=== PATIENT | female | born 1950 | race Caucasian/White ===

== ENCOUNTER 2024-05-27 12:48 | Emergency (ER) | payer MEDICARE, OTHER, SELFPAY ==
--- NOTE | ~2024-05-27 | XR_ITS ---
CHEST RADIOGRAPH, PA AND LATERAL CLINICAL HISTORY: cough/sob/copd/brown sputum . COMPARISON: None available TECHNIQUE: PA and lateral views of the chest. FINDINGS A large hiatal hernia is identified. The remainder of the cardiomediastinal silhouette is otherwise unremarkable. Increased interstitial markings are identified within the right mid to lower lung field, suggesting a n early infiltrate. The remainder of the lungs are clear. Visualized osseous structures and soft tissues are unremarkable. IMPRESSION: Early infiltrate within the right mid to lower lung field, as detailed above. Reviewed, dictated and finalized at location A. S AND BUSINESS DEVELOPMENT MANAGER
[2024-05-27 13:08] VITALS: BP 118/50; PULSE 84; RESP 28; TEMP 36.6; O2SAT 93
--- NOTE | 2024-05-27 13:09 | ED_ITS ---
HPI - SOB/Dyspnea General Chief Complaint: Upper Respiratory Infection Stated Complaint: congestion and sob Time Seen by Provider: 05/27/24 12:50 Source: patient and family Mode of arrival: ambulatory Limitations: no limitations History of Present Illness HPI Narrative: Merle is a 74-year-old female patient presenting to the clinic today with complaints of productive cough, chest congestion, and shortness of breath. Symptoms started sometime before Mane. History of COPD with asthma. She is a lifelong nonsmoker. Is coughing up brown/yellowish phlegm. States that the phlegm taste bad like infection. Oxygen saturations 93% on 2 L of O2. Patient wears home O2 as needed. States when she normally wears oxygen her oxygen saturation is around 93%. Is having increased difficulty breathing. Is having to speak in 2-3 word blocks and catch her breath. She denies any chest pain. States she is allergic to albuterol and steroids-states these medications make her symptoms worse but, is able to take air supra. Last breathing treatment was around 1000 this morning. Recently moved from [place] to [place], [place] and lost her Airsupra inhaler. Patient sees pulmonology- [facility] in [place], [place]. Related Data Allergies Allergy/AdvReac Type Severity Reaction Status Date / Time aspirin Allergy Severe Dyspnea / Verified 05/27/24 14:07 SOB codeine Allergy Severe Dyspnea / Verified 05/27/24 14:07 SOB diphenhydramine (From Allergy Severe Dyspnea / Verified 05/27/24 14:07 Benadryl) SOB minocycline (From Minocin) Allergy Severe Dyspnea / Verified 05/27/24 14:07 SOB Penicillins Allergy Severe Dyspnea / Verified 05/27/24 14:07 SOB Tetanus Vaccines and Toxoid Allergy Severe Dyspnea / Verified 05/27/24 14:07 SOB Review of Systems Review of Systems: Pertinent positives per HPI. Patient denies any fever, chills, rash, headache, visual changes, dizziness, chest pain, palpitations, nausea, vomiting, diarrhea, constipation, abdominal pain, or any urinary issues. PMFSH Comments At the time of my signature, I reviewed and agree with the nursing past medical, surgical, social, and family history. There is no relevant family history pertinent to the patient complaint. Exam Narrative: General: Well-developed, well nourished, in no apparent distress Head: Normocephalic, atraumatic Eyes: Pupils equally round and reactive to light bilaterally, EOM intact, sclera and conjunctive clear, no discharge, lids normal Ears: TMs intact and clear, ear canals clear, no drainage, grossly hearing normal. Nose: Nares patent, clear nasal discharge, no inflammation, no sinus tenderness. Mouth: Oral pharynx without lesions or masses, good dentition, MMM. Neck: Supple, trachea midline, no enlargement of anterior or posterior cervical nodes, no thyroid masses or goiter palpable. Cardio: Regular rate and rhythm, s1 and s2 normal, no murmur appreciated. Resp: Inspiratory wheezing on expiratory rhonchi, no rales or rubs Course Course Emergency Course: Portions of this record may have been created with voice recognition software. Level of Care: Express Care Visit Vital Signs Vital signs: Vital Signs Temperature 36.6 C 05/27/24 13:08 Pulse Rate 84 05/27/24 13:08 Respiratory Rate 28 H 05/27/24 13:08 Blood Pressure 118/50 L 05/27/24 13:08 Pulse Oximetry 93 05/27/24 13:08 Oxygen Delivery Nasal Cannula 05/27/24 13:08 Oxygen Flow Rate 2 05/27/24 13:08 Temperature 36.6 C 05/27/24 13:08 Pulse Rate 84 05/27/24 13:08 Respiratory Rate 28 H 05/27/24 13:08 Blood Pressure 118/50 L 05/27/24 13:08 Pulse Oximetry 93 05/27/24 13:08 Oxygen Delivery Nasal Cannula 05/27/24 13:08 Oxygen Flow Rate 2 05/27/24 13:08 Vital signs reviewed MDM - SOB/Dyspnea MDM Narrative Medical decision making narrative: At the time of visit patient is resting comfortably on the exam table. Patient appears to be nontoxic. Diagnostics: Chest x-ray shows early infiltrate in the right middle to lower lobe Plan: I suspect patient has COPD exacerbation with right mid to lower lobe pneumonia. Prescription for Levaquin and Airsupra inhaler was sent to the pharmacy. Recommend calling director cost's office either this afternoon or tomorrow morning to schedule appointment for recheck later this week -3-5 days. Strict precautions and red flag symptoms reviewed. Supportive measures were discussed with the patient and they voiced understanding discharge instructions and agrees to treatment plan. Differential Diagnosis Differential diagnosis: Likely acute exacerbation of chronic obstructive airways disease, congestive heart failure, community acquired pneumonia, asthma with exacerbation and pulmonary embolism Imaging Data Radiologist's impression: ITS Impressions Chest X-Ray 05/27/24 13:38 IMPRESSION: Early infiltrate within the right mid to lower lung field, as detailed above. Discharge Plan Discharge Clinical Impression: Acute exacerbation of chronic obstructive pulmonary disease Pneumonia Qualifiers: Pneumonia type: due to unspecified organism Laterality: right Lung location: lower lobe of lung Qualified Code(s): J18.9 - Pneumonia, unspecified organism Patient Disposition: Home, Self-Care Condition: Stable Instructions: Antibiotic Form, COPD (Chronic Obstructive Pulmonary Disease) (ED), Pneumonia (ED), Chronic Lung Disease and Infection Prevention (ED) Additional Instructions: Chest x-ray shows early right middle and lower lobe infiltrate Take prescription medications only as prescribed-Airsupra and levofloxacin DuoNeb treatment given in the clinic Increase fluids and stay well hydrated Tylenol/motrin for pain/fever Go to the ED if you develop a worsening in your condition- high fever not controlled by Tylenol or Motrin, dehydration, weakness, lethargy, increase shortness of breath, or chest pain. Follow up with your PCP in 3-5 days if symptoms persist. Patient Language: Polish Prescriptions: New Airsupra 90-80 mcg/actuation HFA aerosol inhaler 2 inh inhalation ONCE PRN (Reason: shortness of breath) 30 Days Qty: 10.7 0RF Rx Instructions: as a single dose; may repeat up to 6 doses per day (12 inhalations) levofloxacin 500 mg tablet 500 mg PO DAILY 7 Days Qty: 7 0RF Follow-up/Referrals: CLEVELAND,MD LAN [Primary Care Provider] - Time of Disposition: 13:53 Quality NIHSS Nursing Documentation ED NIHSS nursing documentation: reviewed/agree
[2024-05-27 13:33] VITALS: PULSE 84; RESP 28; O2SAT 93
[2024-05-27] MEDS: IPRATROPIUM 0.5 MG/ALBUTEROL SULFATE 2.5 MG AMPUL.NEB 3 ML INHALATION (13:33)
[2024-05-27 13:45] VITALS: PULSE 78; RESP 28; O2SAT 95
== END 2024-05-27 14:10 | disposition home or self-care (01) ==
PROVIDERS: Emergency Provider Nurse Practitioner Family; PCP Family Medicine
DX: J44.1 Chronic obstructive pulmonary disease with (acute) exacerbation (principal); J18.1 Lobar pneumonia, unspecified organism; G47.30 Sleep apnea, unspecified
CPT/HCPCS: 71046; 99203; G0463

== ENCOUNTER 2024-12-01 16:35 | Emergency (ER) | payer MEDICARE, OTHER, SELFPAY ==
--- NOTE | 2024-12-01 16:38 | ED_ITS ---
HPI - SOB/Dyspnea General Chief Complaint: Shortness of Breath/Dyspnea Stated Complaint: sob Time Seen by Provider: 12/01/24 16:38 Source: patient Mode of arrival: ambulatory Limitations: no limitations History of Present Illness HPI Narrative: Merle is a 74-year-old female patient presenting to the clinic today with complaints of shortness of breath, low O2 sats, and cough. She states that her oxygen saturation has been as low as 71%. She is currently taking prednisone, DuoNeb treatments every 6 hours, and Levaquin 750 mg daily. Patient is currently on 3 L of oxygen. Oxygen saturation is 93%. Has been having increased shortness of breath for the past 3 weeks per granddaughter. Last hand-held neb treatment was at 1:00 a.m. this afternoon. Has completed 3 breathing treatments today. 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 Related Data Allergies Allergy/AdvReac Type Severity Reaction Status Date / Time aspirin Allergy Severe Dyspnea / Verified 05/27/24 14:07 SOB codeine Allergy Severe Dyspnea / Verified 05/27/24 14:07 SOB diphenhydramine (From Allergy Severe Dyspnea / Verified 05/27/24 14:07 Benadryl) SOB minocycline (From Minocin) Allergy Severe Dyspnea / Verified 05/27/24 14:07 SOB Penicillins Allergy Severe Dyspnea / Verified 05/27/24 14:07 SOB Tetanus Vaccines and Toxoid Allergy Severe Dyspnea / Verified 05/27/24 14:07 SOB Review of Systems Review of Systems: Pertinent positives per HPI. Patient denies any fever, chills, rash, headache, visual changes, dizziness, runny nose, sore throat,chest pain, palpitations, nausea, vomiting, diarrhea, constipation, abdominal pain, or any urinary issues. PMFSH Comments At the time of my signature, I reviewed and agree with the nursing past medical, surgical, social, and family history. There is no relevant family history pertinent to the patient complaint. Exam Narrative: General: Well-developed, thin, increased work to breathe Head: Normocephalic, atraumatic Eyes: Pupils equally round and reactive to light bilaterally, EOM intact, sclera and conjunctive clear, no discharge, lids normal Ears: TMs intact and clear, ear canals clear, no drainage, grossly hearing normal. Nose: Nares patent, no discharge, no inflammation, no sinus tenderness. Mouth: Oropharynx without lesions or masses, good dentition, MMM. Neck: Supple, trachea midline, no enlargement of anterior or posterior cervical nodes, no thyroid masses or goiter palpable. Cardio: Regular rate and rhythm, s1 and s2 normal, no murmur appreciated. Resp: Lung sounds tight with expiratory wheezing, no rales or rubs-intercostal retractions-respirations- 36, SpO2 93-95% on 3 L nasal cannula Course Course Emergency Course: Portions of this record may have been created with voice recognition software. Level of Care: Express Care Visit Vital Signs Vital signs: Vital signs reviewed MDM - SOB/Dyspnea MDM Narrative Medical decision making narrative: At the time of visit patient is resting comfortably on the exam table. Patient appears to be nontoxic. Plan: Patient is short of breath with extensive COPD. Is already taking Levaquin, prednisone, and doing DuoNeb treatments home. Granddaughter states she has had increased work to breathe over the last 3 weeks. Patient is respirations are 36 and she is retracting. LS tight with expiratory wheezing. Oxygen level lowest at 71% home. She wears home O2 at 3 L. O2 sat 93-95% in the clinic. Recommend transfer to hospital for further evaluation. Patient would like to go to [facility]. Offered EMS transfer but patient and granddaughter declined. Report called to Ying CRUZ at [facility] for continuity of care. Differential Diagnosis Differential diagnosis: Likely acute exacerbation of chronic obstructive airways disease, congestive heart failure, community acquired pneumonia, asthma with exacerbation and pulmonary embolism Discharge Plan Discharge Clinical Impression: Shortness of breath, COPD exacerbation, Respiratory retractions Patient Disposition: Acute Care Hospital Condition: Guarded Prognosis Patient Language: Micronesian Prescriptions: No Action Airsupra 90-80 mcg/actuation HFA aerosol inhaler 2 inh inhalation ONCE PRN (Reason: shortness of breath) 30 Days Qty: 10.7 0RF Rx Instructions: as a single dose; may repeat up to 6 doses per day (12 inhalations) levofloxacin 500 mg tablet 500 mg PO DAILY 7 Days Qty: 7 0RF Follow-up/Referrals: [place],MD LAN [Primary Care Provider] - Time of Disposition: 17:10 Quality NIHSS Nursing Documentation ED NIHSS nursing documentation: reviewed/agree
--- OUTSIDE RECORDS SUMMARY | 2024-12-01 16:38 | XMS_ITS | Continuity of Care Document ---
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 4 Active No Information MINOCYCLINE HCL Active No Informati on Horse/Equine Containing Products Active No Information codeine Active No Information Penicillins Active No Information DIPHENHYDRAMINE HCL Active No Infor mation Medications Medication Instructions Dosage Effective Dates (start - stop) Status Comments Lumify 0.025 % eye drops - Active Celexa 20 mg tablet take 1 tablet by ora l route every day 20 MG - Active Zyrtec 10 mg tablet take 1 tablet by ora l route every day 10 MG - Active naproxen sodium 220 mg tablet take 1 tablet by oral route every 24 hours as needed 220 MG - Active Prolia 60 mg/mL subcutaneous syringe inject 1 milliliter by subcutaneous route every 6 months in the upper arm, upper thigh or abdomen 60 MG - Active Huber-24 400 mg capsule,extended release take 1 capsule by oral route every day 400 MG - Active albuterol sulfate 4 mg tablet take 1 tablet by oral route 3 times every day 4 MG - Active Procedures Procedure Date No Charge Refraction Office/outpatient Visit, New Gris Eye Mask Remove Cataract, Insert Lens IOLMaster-Professional Complex Extracapsular Cat Rem 4 [facility]Professional Eye Exam, New Patient No Charge Refraction IOLMaster-Technical Advance Directives Directive Yes / No Effective Date File Name No Information Encounters Encounter Description Practice Location Reason(s) For Visit Diagnoses Date Provider Providers Copied on Encounter Office/outpa tient Visit, New [facility], [id number] [place] [address] [address], [place], [place], [id number], [place] tel:[phone] SEC Clyde VAHID Professional YAG evaluation (chief complaint) Presence of intraocular lensOther secondary cataract, right eyeNevus of irises of both eyesPunctate keratitis, bilateralEnd othelial corneal dystrophyMei bomian gland dysfunction (MGD) of both eyes 9 Yo Aguayo. [address] [facility], [facility], [place], [place], [id number], [place]. tel:[phone] Referring Provider: Roya Meehan, [facility] [address], [facility]. tel:[phone] [facility], [address] [place] [address] [address], [place], [place], [id number], [place] [phone] SEC Clyde REDDING Professional No Information 9 Yo Aguayo. [address] [facility], [address], [place], [place], [id number], [place]. tel:[phone] [facility], [address] [place] [address] [address], [place], [place], [id number], [place] [phone] [facility] No Information 4 Katina Ramirez. [address], [address], [place], [address], [place]. tel:[phone] [facility], [address] [place] [address] [address], [place], [place], [id number], [place] [phone] SEC Reagan Long No Information 4 Katina Ramirez. [address], [address], [place], [address], [place]. tel:[phone] [facility], [address], [place], [place], [id number], [phone] [facility] [place] No Information 0 7 4 Katina Ramirez. [address] [facility], [address], [place], [place], [facility], . tel:[phone] [facility], [address], [place], [place], [id number], [phone] SEC Reagan Longyumiko No Information 201 4 Katina Ramirez. [address], [place], [place], [facility], . tel:[phone] [facility], [address], [place], [place], [id number], [phone] SEC [place] Professional Psychophysic al visual disturbances SENILE NUCLEAR CATARACTPSEU DOEXFOL LENS CAPSULE Mar-2 4 Katina Ramirez. [address], [place], [place], [facility], . tel:[phone] Referring Provider: Nima Lisa OD F, [address] [facility] [address], [place], [address]. tel:[phone] Family History Family Member Type Diagnosis Age At Onset No Information Payers Payer name Insurance type Covered democrat ID Authoriza tion(s) [place] [id number] Employers And Operating Loc [address] [place] [id number] Social History Type Description Quantity Date Captured Comments Alcohol Use Details No Caffeine Use Details 1 cup per day Tobacco Use Status Ex-cigarette smoker 019 Smoking Status Former smoker Smoking Tobacco Use Details Cigarette: Age Started: 27, Age Stopped: 34, Years Used 7 Cigarette: No Details Available Sex Female Chief Complaint And Reason For Visit From encounter dated '2019 09:30'. YAG evaluation (chief complaint). Description: The 69 year old female presents for evaluation of YAG evaluation in the right eye and left eye. Hx of PCIOL OU. Patient states she has difficulty seeingin bright light and glare at night and trouble seeing print on the television. Reason For Referral Reason For Referral No Information Plan Of Treatment Date Type Action Status Patient Education Learning About YAG Lase r Capsulotomy completed History Of Present Illness Encounter Date Complaint History Of Prese nt Illness YAG evaluation The 69 year old female presents for evaluation of YAG evaluation in the right eye and left eye. Hx of PCIOL OU. Patient states she has difficulty seeing in bright light and glare at night and trouble seeing print on the television. 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 Pt understands pseudo-exfoliation causes lens to be fragile. Discussed all risks, benefits, procedures and recovery. Patient understands changing glasses will not improve vision. Patient desires to have surgery, recommend phacoemulsification with intraocular lens. Discussed lifestyle lens options. Pt understands that she will need reading glasses with standard lens. Schedule CE OS first - standard lens. RTC as scheduled. Educational materials provided:Cataract. 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
--- OUTSIDE RECORDS SUMMARY | 2024-12-01 16:38 | XMS_ITS | Clinical Summary ---
Author Organization [facility] Address [address] [place] [address] Care Team Providers Care Social Media Analyst Name Role Phone Marie Drake MD Primary Care Provider + Source Comments [facility],non-owned Affiliates and Associated Physician Practices is amultiple site organization consisting of ambulatory clinics and hospital sitesin [place], [place], [place] and [place]. This disclosure is being madepursuant to the Care Everywhere program and may not contain all information available regarding this patient. Last updated 18.[facility] Allergies Active Allergy Reactions Criticality Noted Date Comments Aspirin Anaphylaxis High 02/12/2024 Diphenhydramine Anaphylaxis High 02/12/2024 Clarithromycin Diarrhea 02/12/2024 Clindamycin Diarrhea 02/12/2024 Codeine Anaphylaxis High 02/12/2024 Propranolol Anaphylaxis High 02/12/2024 Minocycline Anaphylaxis High 02/12/2024 Penicillins Diarrhea 02/12/2024 Tetanus Toxoids Anaphylaxis High 02/12/2024 Medications * Be aware that medications may not be up to date on this document. Alwaysverify current medications with the patient. digoxin (Lanoxin) 0.125 MG tablet Take 1 (one) tablet by mouth once daily 4 Active isosorbide mononitrate CR 24hr (Imdur) 30 MG tablet 4 Active fluticasone-umec lidin-vilant (Trelegy Ellipta) 200-62.5-25 MCG/ACT inhaler Inhale 1 (one) puff by mouth once daily Active clopidogrel (plaVIX) 75 MG tablet 4 Active omeprazole (PriLOSEC) 40 MG capsule Take 1 (one) capsule by mouth once daily Active montelukast (Singulair) 10 MG tablet Take 1 (one) tablet by mouth every evening Active hydroCHLOROthiaz cynthia (Hydrodiuril) 25 MG tablet Take 1 (one) tablet by mouth once daily Active levalbuterol (Xopenex) 1.25 MG/3ML nebulizer solution USE 1 VIAL VIA NEBULIZER EVERY 6 HOURS NEEDED Active hydrALAZINE (Apresoline) 50 MG tablet Take 1 (one) tablet by mouth 4 times daily Active furosemide (Lasix) 40 MG tablet Take 1 (one) tablet by mouth once daily as directed. 3 Active Dupixent 300 MG/2ML prefilled syringe INJECT 300 MG INTO THE SKIN EVERY 2 WEEKS Active albuterol (Proventil) 4 MG tablet Take 4 mg by mouth 3 times daily. Active Airsupra 90-80 MCG/ACT AERO INHALE 2 PUFFS BY MOUTH NEEDED WITH NO MORE THAN 12 PUFFS IN A 24 HOUR PERIOD Active Social History Tobacco Use Types Packs/Day Years Used Date Smoking Tobacco: Never Smokeless Tobacco: Never Tobacco Cessation:Counseling Given: Not Answered Comments Unknown Sex and Gender Information Value Date Recorded Sex Assigned at Female 01/05/2024 11:26 AM CDT Legal Sex Female 12:38 PM CDT Gender Identity Not on file Sexual Orientation Not on file Last Filed Vital Signs Vital Sign Reading Time Taken Comments Blood Pressure 118/74 02/12/2024 9:52 AM CDT Pulse 68 02/12/2024 9:52 AM CDT Temperature 36.4 C (97.5 F) 02/12/2024 9:52 AM CDT Respiratory Rate 18 02/12/2024 9:52 AM CDT Oxygen Saturation 94% 02/12/2024 9:52 AM CDT Inhaled Oxygen Concentration - - Weight 66.1 kg (145 lb 12.8 oz) 02/12/2024 9:52 AM CDT Height 157.5 cm (5' 2) 02/12/2024 9:52 AM CDT Body Mass Index 26.67 02/12/2024 9:52 AM CDT Plan of Treatment Health Maintenance Due Date Last Done Comments BONE DENSITY TESTING 1950 MEDICARE AWV 12 MONTHS 1950 HEPATITIS C SCREENING 01/20/1966 DTAP/TDAP/TD VACCINES (1 - Tdap) 01/24/1967 PNEUMOCOCCAL VACCINE 50+ (1 of 1 - PCV) 01/24/1998 ZOSTER VACCINE (1 of 2) 01/24/1998 Respiratory Syncytial Virus (RSV) Vaccine Pt: or over 60 yrs (1 - 1-dose 75+ series) 01/24/2023 COVID-19 VACCINE (1 - 2023-2 5 season) 2024 DEPRESSION SCREENING 05/29/2024 INFLUENZA VACCINE (#1) 2025 HEPATITIS B VACCINE Aged Out No longe r eligible based on patient's age to complete this topic HIB VACCINE Aged Out No longer eligi ble based on patient's age to complete this topic HPV VACCINE Aged Out No longer eligi ble based on patient's age to complete this topic MENINGOCOCCAL (Group B) VACC INE SHARED DECISION-MAKING Aged Out No longer eligibl e based on patient's age to complete this topic MENINGOCOCCAL GROUPS A/C/Y/W VACCINE Aged Out No longer eligible b ased on patient's age to complete this topic Insurance MEDICARE Care Teams Social Media Analyst Relationship Specialty Start Date End Date Marie Drake MD [address] [place] [id number] PCP - General Family Medicine 01/05/24
--- OUTSIDE RECORDS SUMMARY | 2024-12-01 16:38 | XMS_ITS | Clinical Summary ---
Author Organization [facility] Address [address], [address] [address] Phone Care Team Providers Care Rd Mechanical Engineer Name Role Phone Marie Lawrence MD Primary Care Provider [phone] Khloe Herman APRN, STROKE COORDINATOR Unavailable Allergies Active Allergy Reactions Criticality Noted Date Comments Amoxicillin Other (see Comments) 12/06/2023 Aspirin Unknown 09/25/2024 Diphenhydramine Anaphylaxis High 01/11/2023 Codeine Unknown 09/25/2024 Penicillins Unknown 09/25/2024 Medications montelukast (SINGULAIR) 10 MG Tablet Take 10 mg by mouth every evening. Active hydroCHLOROthia zide 25 MG Tablet Take 25 mg by mouth daily. Active ergocalciferol (VITAMIN D) 98829 UNIT Capsule Take 50,000 Units by mouth. Active omeprazole (PriLOSEC) 40 MG CAPSULE DELAYED RELEASE Take 40 mg by mouth daily. Active citalopram (CeleXA) 20 MG Tablet Take 20 mg by mouth daily. Active Cyanocobalamin (VITAMIN B-12) 1000 MCG Tablet Take 1,000 mcg by mouth daily. Active cetirizine (ZyrTEC) 10 MG Tablet Take 10 mg by mouth daily. Active OXYGEN CONCENTRATOR 2 L by Does not apply route. Use as directed Active OXYGEN TANK PORTABLE 2 L by Does not apply route. Use as directed Active fluconazole (DIFLUCAN) 200 MG TabletIndicatio ns:Oral thrush Take 1 Tablet by mouth daily. 1 Tablet 023 Active acetaminophen (TYLENOL) 325 MG Tablet Take 325 mg by mouth every 4 hours as needed. Active amiodarone (CORDARONE) 200 MG Tablet Take 200 mg by mouth daily. Active guaiFENesin (MUCINEX) 600 MG TABLET SR 12 HR Take 600 mg by mouth 2 times daily. Active hydrALAZINE 50 MG Tablet Take 50 mg by mouth 4 times daily. Active ipratropium-alb uterol (DUO-NEB) 0.5-2.5 (3) MG/3ML SolutionIndicat ions:Severe persistent asthma with acute exacerbation 3 mL by Nebulization route 4 times daily. 360 mL 3 023 Active Albuterol-Budes onide (Airsupra) 90-80 MCG/ACT Aerosol 2 puffs as needed, no more than 12 puffs in a 24 hour period. 3 g 3 024 Active Airsupra 90-80 MCG/ACT Aerosol INHALE 2 PUFFS NEEDED, NO MORE THAN 12 PUFFS IN A 24 HOUR PERIOD. 3 g 11 025 Active Dupilumab (DUPIXENT) 300 MG/2ML Solution Prefilled SyringeIndicati ons:Severe persistent asthma with acute exacerbation 300mg every 2 weeks 4 mL 5 025 Active methylPREDNISol one (MEDROL DOSPACK) 4 MG Tablet Therapy Pack Take 4 mg by mouth daily. Active levoFLOXacin (LEVAQUIN) 500 MG Tablet Take 500 mg by mouth 2 times daily. Active theophylline (LEE-24) 400 MG CAPSULE SR 24 HR Take 1 Capsule by mouth daily for 30 days. 30 Capsule 025 2024 Active azithromycin (ZITHROMAX) 500 MG TabletIndicatio ns:Bronchiectas is without acute exacerbation (HCC) TAKE 1 TABLET BY MOUTH THREE TIMES A WEEK FOR 28 DAYS. 12 Tablet 11 025 2024 Active budesonide (PULMICORT) 0.5 MG/2ML SuspensionIndic ations:Bronchie ctasis with acute exacerbation (HCC),Eosinophi lic asthma 2 mL by Nebulization route 2 times daily for 30 days. 120 mL 3 025 2024 Active Revefenacin (Yupelri) 175 MCG/3ML SolutionIndicat ions:Bronchiect asis with acute exacerbation (HCC),Eosinophi lic asthma take 3 mL by inhalation daily for 30 days. 90 mL 3 025 2024 Active Fluticasone-Ume clidin-Vilant (Trelegy Ellipta) 200-62.5-25 MCG/ACT AEROSOL POWDER, BREATH ACTIVATEDIndica tions:Eosinophi lic asthma take 1 Puff by inhalation daily. 1 Each 5 024 2024 Discontinued(A lternate therapy) azithromycin (ZITHROMAX) 500 MG TabletIndicatio ns:Bronchiectas is without acute exacerbation (HCC) Take 1 Tablet by mouth three times a week for 30 days. 12 Tablet 5 025 2024 Discontinued(R eorder) Revefenacin (Yupelri) 175 MCG/3ML SolutionIndicat ions:Bronchiect asis with acute exacerbation (HCC),Eosinophi lic asthma take 3 mL by inhalation daily for 30 days. 90 mL 3 025 2024 Discontinued budesonide (PULMICORT) 0.5 MG/2ML SuspensionIndic ations:Bronchie ctasis with acute exacerbation (HCC),Eosinophi lic asthma 2 mL by Nebulization route 2 times daily for 30 days. 120 mL 3 025 2024 Discontinued Formoterol Fumarate (Perforomist) 20 MCG/2ML Nebulizer SolnIndications :Bronchiectasis with acute exacerbation (HCC),Eosinophi lic asthma take 2 mL by inhalation 2 times daily for 30 days. 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 Chronic respiratory failure with hypoxia Bronchiectasis with acute exacerbation Oral thrush 02/08/2023 Wheezing 01/03/2023 SOB (shortness of breath) 01/03/2023 Heart palpitations 01/03/2023 Resolved Problems Problem Noted Date Diagnosed Date Resolved Date Moderate persistent asthma w ith acute exacerbation 01/03/2023 02/08/2023 Severe persistent asthma wit h acute exacerbation 01/03/2023 03/27/2024 Encounters Date Type Department Care Team Description 11/25/2024 Refill [facility]Y [facility] [address] [place] [address] Khloe Herman APRN, MIGUELITO Medication Refill 11/20/2024 Results [facility] [address] [place] [address] Khloe Herman APRN, STROKE COORDINATOR CMP (COMPREHENSIVE METABOLIC PANEL) 11/19/2024 Telephone [facility] [address] [place] [address] Khloe Herman APRN, STROKE COORDINATOR 11/18/2024 Telephone [facility] Medicine [facility] [address] [place] [address] Khloe Herman APRN, STROKE COORDINATOR 11/15/2024 2:00 PM CDT Office Visit [facility] PUL[facility] [address] [facility] [facility] [facility] [place] [address] Khloe Herman APRN, STROKE COORDINATOR Bronchiectasis with acute exacerbation (HCC) (Primary Dx); Chronic respiratory failure with hypoxia (HCC); Eosinophilic asthma Discharge Disposition: Discharged to home or Selfcare 11/15/2024 Travel 10/18/2024 [facility]ill [facility] [address] [place] [address] Khloe Herman APRN, MIGUELITO Medication Refill 10/07/2024 Telephone [facility] [address] [place] [address] Khloe Herman APRN, STROKE COORDINATOR 09/25/2024 1:00 PM CDT Office Visit [facility] [address] [place] [address] Khloe Herman APRN, CNP Eosinophilic asthma (Primary Dx); Bronchiectasis without acute exacerbation (HCC); Chronic respiratory failure with hypoxia (HCC) Discharge Disposition: Discharged to home or Selfcare 09/25/2024 Travel 09/23/2024 Refill [facility] [address] [facility] [address] [place] [address] Khloe Herman APRN, CNP Medication Refill from Last 3 Months Social History Tobacco Use Types Packs/Day Years Used Date Smoking Tobacco: Never Smokeless Tobacco: Never Tobacco Cessation:Counseling Given: Not Answered Alcohol Use Standard Drinks/Week Comments Never 0 (1 standard drink = 0.6 oz pur e alcohol) Sexually Active Control Partners Comments Never Comments Unknown Sex and Gender Information Value Date Recorded Sex Assigned at Not on file Legal Sex Female 7:13 PM 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 Gender Identity Not on file Sexual Orientation Not on file Last Filed Vital Signs Vital Sign Reading Time Taken Comments Blood Pressure 138/70 11/15/2024 1:56 PM CDT Pulse 62 11/15/2024 1:56 PM CDT Temperature 37.5 C (99.5 F) 11/15/2024 1:56 PM CDT Respiratory Rate 20 11/15/2024 1:56 PM CDT Oxygen Saturation 93% 11/15/2024 1:56 PM CDT Inhaled Oxygen Concentration - - Weight 63.5 kg (140 lb) 11/15/2024 1:56 PM CDT Height 157.5 cm (5' 2) 11/15/2024 1:56 PM CDT Body Mass Index 25.61 11/15/2024 1:56 PM CDT Plan of Treatment Upcoming Encounters Date Type Department Care Team (Late st Contact Info) Description 12/13/2024 1:00 PM CDT Office Visit [facility] [address] [place] [address] Khloe Herman APRN, MIGUELITO [address] [place] [address] Health Maintenance Due Date Last Done Comments DEXA Bone Density 1950 Hepatitis C Virus (HCV) Screening 1950 TdaP Immunization 1950 Zoster Immunization (1 of 2) 01/24/1998 Pneumococcal Immunization (50+ years) (2 of 2 - PCV) 03/08/2019 03/08/2018 SARS-COV-2 Immunization ( season) 2024 04/29/2021, 07/22/2020, 07/01/2020 Influenza Immunization (#1) 01/27/202501/28, 03/05/2020, 04/02/2019, Additional history exists Respiratory Syncytial Virus (RSV) Immunization (Adult) Completed 05/18/2023 Hepatitis B Immunization Aged Out No longer eligible based on patient's age to complete this topic Human Papillomavirus (HPV) Immunization Aged Out No longer eligible based on patient's age to complete this topic Meningococcal Immunization (ACWY) Aged Out No longer eligible based on patient's age to complete this topic Rotavirus Immunization Aged Out No lo nger eligible based on patient's age to complete this topic Procedures Procedure Name Priority Date/Time Associated Diagnosis Comments CMP (COMPREHENSIVE METABOLIC PANEL) Routine 11/15/2024 12:00 AM CDT Bronchiectasis with acute exacerbation (HCC) Chronic respiratory failure with hypoxia (HCC) CT HIGH RESOLUTION CHEST COMPLETE Routine 10/01/2024 12:00 AM CDT Bronchiectasis without acute exacerbation (HCC) Chronic respiratory failure with hypoxia (HCC) from Last 3 Months Results * CMP (COMPREHENSIVE METABOLIC PANEL) (11/15/2024 12:00 AM CDT) Blood us Khloe Herman APRN, CNP CHEMISTRY ORDERABLES Final Result SCAN * CT HIGH RESOLUTION CHEST COMPLETE (10/01/2024 12:00 AM CDT) Anatomical Region Laterality Modality Chest N/A Other 10/01/2024 Khloe Herman APRN, MIGUELITO IMG CT ORDERABLES Fin al Result from Last 3 Months Insurance MEDICARE Reppify Care Teams Rd Mechanical Engineer Relationship Specialty Start Date End Date Marie Lawrence MD [address] [place] [address] PCP - General 01/03/23 Khloe Herman APRN, MIGUELITO [address] [address] Nurse Practitioner Advanced Practice Nurse 01/03/23
--- OUTSIDE RECORDS SUMMARY | 2024-12-01 16:38 | XMS_ITS | Encounter Summary ---
Author Organization [facility] Address [address] [place] [address] Phone Care Team Providers Care Chief Airport Guide Name Role Phone Marie Lawrence MD Primary Care Provider [phone] Khloe Herman APRN, YOUTH MANAGER Unavailable Encounter Details Date Type Department Care Team (Late st Contact Info) Description 11/20/2024 Results Follow-Up [facility] - Pulmonology & Sleep Medicine [facility] [address] [place] [phone] Khloe Herman APRN, YOUTH MANAGER [address] [facility] [address] [place] [address] CMP (COMPREHENSIVE METABOLIC PANEL) Social History Tobacco Use Types Packs/Day Years Used Date Smoking Tobacco: Never Smokeless Tobacco: Never Alcohol Use Standard Drinks/Week Comments Never 0 (1 standard drink = 0.6 oz pur e alcohol) Sexually Active Control Partners Comments Never Comments Unknown Sex and Gender Information Value Date Recorded Sex Assigned at Not on file Legal Sex Female 7:13 PM 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 Gender Identity Not on file Sexual Orientation Not on file documented as of this encounter Plan of Treatment Upcoming Encounters Date Type Department Care Team (Late st Contact Info) Description 12/13/2024 1:00 PM CDT Office Visit [facility] [address] [facility] [address] [place] [address] Khloe Herman APRN, MIGUELITO [address] [address] documented as of this encounter Visit Diagnoses Not on filedocumented in this encounter Care Teams Chief Airport Guide Relationship Specialty Start Date End Date Marie Lawrence MD [address] [place] [address] PCP - General 01/03/23 Khloe Herman APRN, CNP #2 [facility] [address] [place] [address] Nurse Practitioner Advanced Practice Nurse 01/03/23 documented as of this encounter
--- OUTSIDE RECORDS SUMMARY | 2024-12-01 16:42 | XMS_ITS | Continuity of Care Document ---
Author Organization [employer] [facility] Address [address] [facility] [address] [place] [address] Phone Care Team Providers Care Tissue Packer Name Role Phone Olivier Ram MD Unavailable [...] Copied on Encounter Office/outpa tient Visit, [facility], [id number] [place] [address] [address], [place], [place], [address], [place] tel:[phone] SEC Clyde VAHID Professional YAG evaluation (chief complaint) Presence of intraocular lensOther secondary cataract, right eyeNevus of irises of both eyesPunctate keratitis, bilateralEnd othelial corneal dystrophyMei bomian gland dysfunction (MGD) of both eyes 9 Yo Aguayo. [address] [facility], [facility] [address], [place], [place], [id number], [place]. tel:[phone] Referring Provider: Roya Meehan, [facility] [address], [facility]. tel:[phone] [facility], [address] [place] [address] [address], [place], [place], [address], [place] [phone] SEC Clyde REDDING Professional No Information 9 Yo Aguayo. [address] [facility], [address], [place], [place], [address], [place]. tel:[phone] [facility], [address] [place] [address] [address], [place], [place], [address], [place] [phone] [facility] No Information 4 Katina Ramirez. [address], [address], [place], [address], [place]. tel:[phone] [facility], [address] [place] [address] [address], [place], [place], [address], [place] [phone] SEC Reagan Long No Information 4 Katina Ramirez. [address], [address], [place], [address], [place]. tel:[phone] [facility], [address], [place], [place], [address], [phone] [facility] [place] No Information 0 7 4 Katina Ramirez. [address] [facility], [address], [place], [place], [facility], . tel:[phone] [facility], [address], [place], [place], [address], [phone] SEC Reagan Longyumiko No Information 201 4 Katina Ramirez. [address] [facility], [place], [place], [facility], . tel:[phone] [facility], [address], [place], [place], [address], [phone] SEC [place] Professional Psychophysic al visual disturbances SENILE NUCLEAR CATARACTPSEU DOEXFOL LENS CAPSULE Mar-2 4 Katina Ramirez. [address] [facility], [place], [place], [facility], . tel:[phone] Referring Provider: Nima Lisa OD F, [address] [facility] [address], [address]. tel:[phone] Family History Family Member Type Diagnosis Age At Onset No Information Payers Payer name Insurance type Covered alliance party ID Authoriza tion(s) [place] [id number] Employers [employer] Operating Loc 520 [place] [id number] Social History Type Description Quantity Date Captured [...]
[2024-12-01 16:51] VITALS: BP 162/75; PULSE 82; RESP 36; TEMP 36.8; O2SAT 95
[2024-12-01 16:58] VITALS: O2SAT 95
== END 2024-12-01 16:58 | disposition short-term general hospital (02) ==
LOC: EXPTROY 16:40
PROVIDERS: Emergency Provider Nurse Practitioner Family; PCP Family Medicine
DX: R06.02 Shortness of breath (principal); J44.1 Chronic obstructive pulmonary disease with (acute) exacerbation; R09.89 Other specified symptoms and signs involving the circulatory and respiratory systems; Z99.81 Dependence on supplemental oxygen; I10 Essential (primary) hypertension; E78.00 Pure hypercholesterolemia, unspecified; J82.83 Eosinophilic asthma; G47.33 Obstructive sleep apnea (adult) (pediatric); K21.9 Gastro-esophageal reflux disease without esophagitis
CPT/HCPCS: 99212; G0463

== ENCOUNTER 2024-12-01 17:17 | Inpatient (IN) | payer MEDICARE, OTHER, SELFPAY ==
[2024-12-01] VITALS (13 sets, daily range): BP systolic 137–153; BP diastolic 68–90; PULSE 77–88; RESP 20–31; TEMP 36.7–36.8; O2SAT 95–99; BMI 24.5
--- NOTE | ~2024-12-01 | XR_ITS ---
Portable chest x-ray Comparison: 12/01/2024 Clinical History: Pneumonia Findings: There is probable COPD or other chronic interstitial change. Possible minimal haziness rig ht lung base. Cardiomediastinal silhouette is stable. Bones and soft tissues are unremarkable. Impression: COPD or other chronic interstitial change. Possible mild haziness right lung base. Correlate for pneumonia or minimal pulmonary edema. Stable cardiomegaly. Reviewed, dictated and finalized at location . Impression: COPD or other chronic interstitial change. Possible mild haziness right lung base. Correlate for pneumonia or minimal pulm onary edema. Stable cardiomegaly.
--- NOTE | ~2024-12-01 | CT_ITS ---
EXAMINATION: CT diagnostic chest wo con DATE: 12/01/2024 21:32 INDICATION: nodule vs infection TECHNIQUE: Computed tomography (CT) of the chest was performed with 100 mL Omnipaque-350 intravenous contrast. Automated exposure control and iterative reconstruction technique were employed. The dose-l ength product was 149.19 mGy-cm. COMPARISON: X-ray chest, same date. FINDINGS: CHEST: Thoracic aorta: Borderline ectasia of the ascending aorta measuring up to 3.9 cm. Moderate atheroscle rotic calcifications. Visualization of the aortic wall as can be seen with anemia. Lung parenchyma and airways: Significant biapical pleural scarring. Tree-in-bud opacities in all lung lobes. Widespread cystic and cylindrical bronchiectasis. Several areas of the cystic bronchiectasis contain fluid or aerated secretions. Thoracic inlet, axillae and chest wall: No thyroid or soft tissue mass. No axillary lymphadenopathy. Mediastinum: Dilated central pulmonary arteries as can be seen with pulmonary hypertension. Large hia stevenson hernia containing approximately one half of the stomach. Heart and pericardium: Mild cardiomegaly. Aortic valve and mitral calcifications Trace pericardial fl uid. Coronary artery calcifications: Mild. Pleura: Fat-containing right posterior diaphragmatic hernia. Upper abdomen: No significant finding. Thoracic bones: No acute osseous finding in the chest. IMPRESSION: Diffuse tree-in-bud opacities with severe bronchiectasis, concerning for atypical infection, includin g but not limited to: tuberculosis, MAC, fungal infection, and bacterial bronchopneumonia. Chronic as piration considered less likely given the distribution. Mild cardiomegaly. Trace pericardial effusion. Results reported telephonically to Debbie Mac RN by Dr. Willson at 10:29 PM on 12/01/2024. Reviewed, dictated and finalized at location K. IMPRESSION: Diffuse tree-in-bud opacities with severe bronchiectasis, concerning for atypic al infection, including but not limited to: tuberculosis, MAC, fungal infection , and bacterial bronchopneumonia. Chronic aspiration considered less likely giv en the distribution. Mild cardiomegaly. Trace pericardial effusion. Results reported telephonically to Debbie Mac RN by Dr. Willson at 10:29 PM on 12/01/2024.
--- NOTE | ~2024-12-01 | XR_ITS ---
EXAMINATION: XR chest 1V portable Exam Date/Time: 12/01/2024 17:25 CDT HISTORY: dyspnea Comparison: 05/27/2024. RESULT: Lines, tubes, and devices: None. Lungs and pleura: 1.3 cm right lower lobe nodular opacity. Moderate diffuse reticular opacities. Ret iculonodular opacities in the right lower lung. Left hemidiaphragm tenting. 2.1 cm right midlung air cyst Cardiomediastinal silhouette: Stable. Hiatal hernia. Other: No acute osseous or upper abdominal finding. IMPRESSION: Reticulonodular right lower lung opacities may represent infection, including atypical variants, over lying chronic emphysematous/interstitial changes. Possible 1.3 cm right lower lung pulmonary nodule, versus nodular appearing consolidation from infect ion. Recommend nonemergent but timely low-dose noncontrast CT of the chest for further evaluation. Reviewed, dictated and finalized at location K. IMPRESSION: Reticulonodular right lower lung opacities may represent infection, including a typical variants, overlying chronic emphysematous/interstitial changes. Possible 1.3 cm right lower lung pulmonary nodule, versus nodular appearing con solidation from infection. Recommend nonemergent but timely low-dose noncontras t CT of the chest for further evaluation.
--- NOTE | 2024-12-01 17:18 | ECG_ITS ---
Test Date: 2024-12-01 17:42:20 Measurements Intervals [place] Rate: 75 P: 17 [place]: 138 QRS: -37 QRSD: 100 T: 37 QT: 387 QTc: 432 Interpretive Statements SINUS RHYTHM LEFT AXIS DEVIATION [QRS AXIS < -30] No previous ECG available for comparison Electronically Signed On 12-02-2024 22:31:57 CDT by Jami Benitez M.D.
--- OUTSIDE RECORDS SUMMARY | 2024-12-01 17:19 | XMS_ITS | Continuity of Care Document ---
Author Organization [facility] [place] [address] [place] [phone] Phone Care Team Providers Care Tors[place] Coiling Machine Setter Name Role Phone Olivier Ram MD Unavailable [...] Copied on Encounter Office/outpa tient Visit, [facility], [id number] [place] [address] [address], [place], [place], [id number], [place] tel:[phone] SEC Clyde VAHID Professional YAG evaluation (chief complaint) Presence of intraocular lensOther secondary cataract, right eyeNevus of irises of both eyesPunctate keratitis, bilateralEnd othelial corneal dystrophyMei bomian gland dysfunction (MGD) of both eyes 9 Yo Aguayo. [address] [facility] [address], [place], [place], [address], [place]. tel:[phone] Referring Provider: Roya Meehan, [facility] [address], [facility]. tel:[phone] [facility], [address] [place] [address] [address], [place], [place], [address], [place] [phone] SEC Clyde REDDING Professional No Information 9 Yo Aguayo. [address] [facility], [address], [place], [place], [address], [place]. tel:[phone] [facility], [address] [place] [address] [address], [place], [place], [id number], [place] [phone] [facility] No Information 4 Katina Ramirez. [address], [address], [place], [address], [place]. tel:[phone] [facility], [address] [place] [address] [address], [place], [place], [address], [place] [phone] SEC Reagan Long No Information 4 Katina Ramirez. [address], [address], [place], [address], [place]. tel:[phone] [facility], [address], [place], [place], [address], [phone] [facility] [place] No Information 0 7 4 Katina Ramirez. [address] [facility], [address], [place], [place], [facility], . tel:[phone] [facility], [address], [place], [place], [address], [phone] SEC Reagan Longyumiko No Information 201 4 Katina Ramirez. [address] [facility], [place], [place], [facility], . tel:[phone] [facility], [address], [place], [place], [address], [phone] [place] Professional Psychophysic al visual disturbances SENILE NUCLEAR CATARACTPSEU DOEXFOL LENS CAPSULE Mar-2 4 Katina Ramirez. [address] [facility], [place], [place], [facility], . tel:[phone] Referring Provider: Nima Lisa OD F, [address] [facility] [address], [address]. tel:[phone] Family History Family Member Type Diagnosis Age At Onset No Information Payers Payer name Insurance type Covered constitution party ID Authoriza tion(s) [place] [id number] [employer] Loc 520 CI [id number] Social History Type Description Quantity Date Captured [...]
[2024-12-01 17:36] LABS: Hematocrit 38.0 % (37.0-47.0); Hemoglobin 11.8 g/dL (12.0-15.0); Immature Granulocyte Percent A 0.5 % (0-0.5); Lymphocytes Absolute Auto 1.31 K/mm3 (0.9-3.2); Mean Corpuscular HGB Conc 31.1 g/dl (32-36); Mean Corpuscular Hemoglobin 27.1 pg (26-34); Mean Corpuscular Volume 87.2 fl (80-100); Nucleated Red Blood Cells Absolute Auto 0.000 K/mm3 (0.0-0.012); Nucleated Red Blood Cells Perc 0.0 % (0.0-0.2); Platelet Count Result 386 k/mm3 (150-375); Red Blood Count 4.36 M/mm3 (4.2-5.4); White Blood Count 18.7 K/mm3 (4.5-10.0)
--- NOTE | 2024-12-01 17:40 | ED_ITS ---
HPI - SOB/Dyspnea General Chief Complaint: Shortness of Breath/Dyspnea <Cathy Correa PA-C - Last Filed: 12/01/24 19:52> Stated Complaint: shortness of breath <Cathy Correa PA-C - Last Filed: 12/01/24 19:52> Time Seen by Provider: 12/01/24 17:27 <Cathy Correa PA-C - Last Filed: 12/01/24 19:52> History of Present Illness HPI Narrative: 74-year-old female with history of asthma and COPD presents emergency department with daughter at bedside for shortness of breath and labored breathing for the past 3 weeks. Patient reports increasing shortness of breath and labored breathing despite being on steroids and Levaquin. She is currently in her 2nd round of Levaquin in the past couple of weeks and continues to worsen. Her regional sales consultant is Dr. Novak at [facility]. She states she used her nebulizer 3 times today without improvement. Her last use was at 1:00 p.m.. She reports a productive cough with pale yellow sputum. Denies any fevers or chest pain, lower extremity edema, hemoptysis, history of VTE, recent surgeries or hospitalizations. She denies history of smoking. She states she normally wears 2 L nasal cannula at all times but did increase her oxygen to 3 L today. < Cathy Correa PA-C - Last Filed: 12/01/24 19:52> Related Data Home Medications: Home Medications ?Medication ?Instructions ?Recorded ?Confirmed ?Last Taken ?Type azithromycin 500 mg tablet 500 mg PO WEEKLY 12/01/24 12/01/24 Unknown History citalopram 20 mg tablet mg 12/01/24 Unknown History clopidogrel 75 mg tablet mg 12/01/24 Unknown History digoxin 125 mcg (0.125 mg) tablet 12/01/24 Unknown History dupilumab 300 mg/2 mL subcutaneous mg subcut 12/01/24 Unknown History syringe (Dupixent) ergocalciferol (vitamin D2) 1,250 12/01/24 Unknown History mcg (50,000 unit) capsule hydralazine 50 mg tablet mg 12/01/24 Unknown History hydrochlorothiazide 25 mg tablet mg 12/01/24 Unknown History isosorbide mononitrate 30 mg mg PO 12/01/24 Unknown History tablet,extended release 24 hr levofloxacin 750 mg tablet mg 12/01/24 Unknown History montelukast 10 mg tablet mg 12/01/24 Unknown History omeprazole 40 mg capsule,delayed mg 12/01/24 Unknown History release prednisone 10 mg tablet mg 12/01/24 Unknown History rosuvastatin 40 mg tablet mg 12/01/24 Unknown History theophylline 400 mg mg PO 12/01/24 Unknown History capsule,extended release 24 hr (Huber-24) <NAGA Arroyo Last Filed: 12/01/24 19:52> Allergies/Adverse Reactions: Allergies Allergy/AdvReac Type Severity Reaction Status Date / Time aspirin Allergy Severe Dyspnea / Verified 12/01/24 17:42 SOB codeine Allergy Severe Dyspnea / Verified 12/01/24 17:42 SOB diphenhydramine (From Allergy Severe Dyspnea / Verified 12/01/24 17:42 Benadryl) SOB minocycline (From Minocin) Allergy Severe Dyspnea / Verified 12/01/24 17:42 SOB Penicillins Allergy Severe Dyspnea / Verified 12/01/24 17:42 SOB Tetanus Vaccines and Toxoid Allergy Severe Dyspnea / Verified 12/01/24 17:42 SOB <Cathy Correa PA-C - Last Filed: 12/01/24 19:52> Review of Systems 2 Review of Systems: All systems reviewed & are unremarkable except as noted in HPI and below <Cathy Correa PA-C - Last Filed: 12/01/24 19:52> PMFSH Past Medical History Medical History: Medical History (Updated 12/01/24 @ 19:32 by Rosie Leahy APRN) COPD (chronic obstructive pulmonary disease) Asthma <NAGA Arroyo Last Filed: 12/01/24 19:52> Exam 2 Narrative: GENERAL: Ill-appearing, well-nourished HEAD: Normocephalic, atraumatic. EYES: PERRLA and EOMI. ENT: Nares clear, no rhinorrhea or epistaxis. Mucous membranes moist. NECK: Supple. CHEST: Diminished lung sounds throughout all lung kulkarni with minimal wheezing in the right upper lung field. Patient satting 98% on 3 L nasal cannula. Speaking in short sentences, labored breathing with retractions HEART: Regular rate and rhythm. No murmur heard. Normal peripheral pulses. ABDOMEN: Soft, nontender, nondistended, normal active bowel sounds. EXTREMITIES: Normal range of motion. No edema. Negative Homans bilaterally SKIN: Warm, dry, no rash. NEURO: No focal deficits. Alert and oriented x3 <Cathy Correa PA-C - Last Filed: 12/01/24 19:52> Course CRUSHING MILL OPERATOR/PA Physician Supervision For this patient encounter, I reviewed the CRUSHING MILL OPERATOR or PA documentation, treatment plan, and medical decision making; and I had [id number] time with this patient. <Tio Robbins MD - Last Filed: 12/01/24 19:03> Vital Signs Vital signs: Vital Signs Temperature 98.0 F 12/01/24 17:23 Pulse Rate 78 12/01/24 17:23 Respiratory Rate 20 12/01/24 17:23 Blood Pressure 153/90 H 12/01/24 17:23 Pulse Oximetry 98 12/01/24 17:23 Oxygen Delivery Room Air 12/01/24 17:23 Temperature 98.0 F 12/01/24 17:23 Pulse Rate 82 12/01/24 18:39 Respiratory Rate 24 H 12/01/24 18:39 Blood Pressure 144/80 H 12/01/24 18:22 Pulse Oximetry 98 12/01/24 18:25 Oxygen Delivery BiPAP 12/01/24 18:25 Oxygen Flow Rate 3 12/01/24 17:39 <Cathy Correa PA-C - Last Filed: 12/01/24 19:52> Vital Signs Temperature 98.0 F 12/01/24 17:23 Pulse Rate 78 12/01/24 17:23 Respiratory Rate 20 12/01/24 17:23 Blood Pressure 153/90 H 12/01/24 17:23 Pulse Oximetry 98 12/01/24 17:23 Oxygen Delivery Room Air 12/01/24 17:23 Temperature 98.0 F 12/01/24 17:23 Pulse Rate 82 12/01/24 18:39 Respiratory Rate 24 H 12/01/24 18:39 Blood Pressure 144/80 H 12/01/24 18:22 Pulse Oximetry 98 12/01/24 18:25 Oxygen Delivery BiPAP 12/01/24 18:25 Oxygen Flow Rate 3 12/01/24 17:39 <Tio Robbins MD - Last Filed: 12/01/24 19:03> MDM - SOB/Dyspnea MDM Narrative Medical decision making narrative: 74-year-old female with a history of asthma and COPD presents to emergency department for increased work of breathing and shortness of breath for the past several weeks. Patient has been treated with Levaquin and steroids with with worsening symptoms. She is on her 2nd round of Levaquin now. She normally wears 2 L nasal cannula baseline but did increase her oxygen to 3 L today. She is satting 98% on 3 L. She does have increased work of breathing and retractions, she is speaking in short sentences. Lung sounds are diminished throughout all lung kulkarni with scant wheezing in the right upper lung field. Patient was started on IV magnesium, DuoNebs, BiPAP, Solu-Medrol. Lab work shows leukocytosis of 18.7. This may be due to recent steroid use vs PNA. Chemistries with creatinine of 1.17 BUN of 21, bicarb is 35, no prior for comparison. Mag normal. ABG shows a pH is 7.459, pCO2 47.8, PO2 of 54, bicarb of 33.2. EKG shows normal sinus rhythm with rate of 75 ppm, normal AR interval, normal QRS duration, normal QTC, LAD, no ST elevations or depressions. Troponin is undetectable. D dimer is 0.54 which is normal when age adjusted. BNP is mildly elevated at 424 which is normal when age adjusted. Patient does not appear to be volume overloaded. Chest x-ray shows reticulonodular right lower lung opacities shows may represent infection including atypical variants, overlying chronic emphysematous/interstitial changes. There is a possible 1.3 cm right lower lung pulmonary nodule versus nodular appearing consolidation from infection. Recommendations for non emergent noncontrast CT of the chest for further evaluation. Patient re-evaluated is improved on BiPAP and and after receiving steroids and DuoNeb. She is moving air much better but is having inspiratory and expiratory wheezing. Plan to admit for further evaluation and management. She was started on Rocephin and azithromycin to cover CAP. Blood cultures are pending. <Cathy Correa PA-C - Last Filed: 12/01/24 19:52> Lab Data Result diagrams: 12/01/24 17:28 12/01/24 17:28 <Cathy Correa PA-C - Last Filed: 12/01/24 19:52> Labs: Lab Results 12/01/24 12/01/24 12/01/24 Range/Units 17:27 17:28 17:52 WBC 18.7 H (4.5-10.0) K/mm3 RBC 4.36 (4.2-5.4) M/mm3 Hgb 11.8 L (12.0-15.0) g/dL Hct 38.0 (37.0-47.0) % MCV 87.2 (80-100) fl MCH 27.1 (26-34) pg MCHC 31.1 L (32-36) g/dl RDW 14.4 (11.5-14.5) % Plt Count 386 H (150-375) k/mm3 MPV 9.8 (7.4-10.4) fl Immature Gran % (Auto) 0.5 (0-0.5) % Neut % (Auto) 87.2 H (45.5-73.1) % Lymph % (Auto) 7.0 L (18.3-44.2) % Stephens % (Auto) 4.9 (2.6-8.5) % Eos % (Auto) 0.2 (0-4.4) % Baso % (Auto) 0.2 (0.2-1.2) % Lymph # (Auto) 1.31 (0.9-3.2) K/mm3 Stephens # (Auto) 0.9 H (0.1-0.6) K/mm3 Eos # (Auto) 0.0 (0-0.3) K/mm3 Baso # (Auto) 0.0 (0.0-0.1) K/mm3 Abs Immat Gran (auto) 0.10 H (0.00-0.031) K/mm3 Absolute Neuts (auto) 16.3 H (1.3-6.7) K/mm3 Absolute Nucleated RBC 0.000 (0.0-0.012) K/mm3 Nucleated RBC % 0.0 (0.0-0.2) % PT 13.0 (11.1-14.7) Seconds INR 1.0 APTT 30.4 (22.3-36.8) Seconds D-Dimer 0.54 H (<0.48) ug/mL Sodium 139 (137-145) mmol/L Potassium 3.6 (3.4-5.0) mmol/L Chloride 99 (98-107) mmol/L Carbon Dioxide 35 H (22-30) mmol/L Anion Gap 5 (4-12) mmol/L BUN 21 H (7-17) mg/dL Creatinine 1.17 H (0.7-1.0) mg/dL Estim Creat Clear Calc 29 ml/min Estimated GFR 45 L (59 - ) Glucose 122 H (65-110) mg/dL Lactic Acid 0.8 (0.7-2.0) mmol/L Calcium 9.6 (8.4-10.2) mg/dL Magnesium 1.9 (1.6-2.3) mg/dL Total Bilirubin 0.1 L (0.2-1.3) mg/dL AST 42 H (14-36) U/L ALT 16 (6-35) U/L Alkaline Phosphatase 65 (38-126) U/L Troponin I < 0.012 (0.000-0.034) ng/mL NT-Pro-B Natriuret Pep 424 H (19.9-100) pg/mL Total Protein 6.8 (6.3-8.2) g/dL Albumin 3.7 (3.5-5.1) g/dL Influenza A (RT-PCR) Negative (Negative) Influenza B (RT-PCR) Negative (Negative) RSV (RT-PCR) Negative (Negative) SARS-CoV-2 RNA (RT-PCR) Negative (Negative) <Cathy Correa PA-C - Last Filed: 12/01/24 19:52> Lab Results 12/01/24 12/01/24 12/01/24 Range/Units 17:27 17:28 17:52 WBC 18.7 H (4.5-10.0) K/mm3 RBC 4.36 (4.2-5.4) M/mm3 Hgb 11.8 L (12.0-15.0) g/dL Hct 38.0 (37.0-47.0) % MCV 87.2 (80-100) fl MCH 27.1 (26-34) pg MCHC 31.1 L (32-36) g/dl RDW 14.4 (11.5-14.5) % Plt Count 386 H (150-375) k/mm3 MPV 9.8 (7.4-10.4) fl Immature Gran % (Auto) 0.5 (0-0.5) % Neut % (Auto) 87.2 H (45.5-73.1) % Lymph % (Auto) 7.0 L (18.3-44.2) % Stephens % (Auto) 4.9 (2.6-8.5) % Eos % (Auto) 0.2 (0-4.4) % Baso % (Auto) 0.2 (0.2-1.2) % Lymph # (Auto) 1.31 (0.9-3.2) K/mm3 Stephens # (Auto) 0.9 H (0.1-0.6) K/mm3 Eos # (Auto) 0.0 (0-0.3) K/mm3 Baso # (Auto) 0.0 (0.0-0.1) K/mm3 Abs Immat Gran (auto) 0.10 H (0.00-0.031) K/mm3 Absolute Neuts (auto) 16.3 H (1.3-6.7) K/mm3 Absolute Nucleated RBC 0.000 (0.0-0.012) K/mm3 Nucleated RBC % 0.0 (0.0-0.2) % PT 13.0 (11.1-14.7) Seconds INR 1.0 APTT 30.4 (22.3-36.8) Seconds D-Dimer 0.54 H (<0.48) ug/mL Sodium 139 (137-145) mmol/L Potassium 3.6 (3.4-5.0) mmol/L Chloride 99 (98-107) mmol/L Carbon Dioxide 35 H (22-30) mmol/L Anion Gap 5 (4-12) mmol/L BUN 21 H (7-17) mg/dL Creatinine 1.17 H (0.7-1.0) mg/dL Estim Creat Clear Calc 29 ml/min Estimated GFR 45 L (59 - ) Glucose 122 H (65-110) mg/dL Lactic Acid 0.8 (0.7-2.0) mmol/L Calcium 9.6 (8.4-10.2) mg/dL Magnesium 1.9 (1.6-2.3) mg/dL Total Bilirubin 0.1 L (0.2-1.3) mg/dL AST 42 H (14-36) U/L ALT 16 (6-35) U/L Alkaline Phosphatase 65 (38-126) U/L Troponin I < 0.012 (0.000-0.034) ng/mL NT-Pro-B Natriuret Pep 424 H (19.9-100) pg/mL Total Protein 6.8 (6.3-8.2) g/dL Albumin 3.7 (3.5-5.1) g/dL Influenza A (RT-PCR) Negative (Negative) Influenza B (RT-PCR) Negative (Negative) RSV (RT-PCR) Negative (Negative) SARS-CoV-2 RNA (RT-PCR) Negative (Negative) <Tio Robbins MD - Last Filed: 12/01/24 19:03> ABG Data ABG results: 12/01/24 18:01 Puncture Site Left radial ABG pH 7.459 H ABG pCO2 47.8 H ABG pO2 54.0 L ABG PO2/FiO2 Ratio 1.69 ABG HCO3 33.2 H ABG O2 Saturation 89.3 L ABG O2 Content 15.1 L ABG Base Excess 8.2 A-a Gradient 118.2 Oxyhemoglobin 88.1 L Total Hemoglobin 12.2 O2 Delivery Device Nasal cannula O2 Liters/Min 3.0 FiO2 32 <Cathy Correa PA-C - Last Filed: 12/01/24 19:52> 12/01/24 18:01 Puncture Site Left radial ABG pH 7.459 H ABG pCO2 47.8 H ABG pO2 54.0 L ABG PO2/FiO2 Ratio 1.69 ABG HCO3 33.2 H ABG O2 Saturation 89.3 L ABG O2 Content 15.1 L ABG Base Excess 8.2 A-a Gradient 118.2 Oxyhemoglobin 88.1 L Total Hemoglobin 12.2 O2 Delivery Device Nasal cannula O2 Liters/Min 3.0 FiO2 32 <Tio Robbins MD - Last Filed: 12/01/24 19:03> Discharge Plan Discharge Clinical Impression: Acute exacerbation of chronic obstructive pulmonary disease, CAP (community acquired pneumonia), Acute on chronic hypoxic respiratory failure <NAGA Arroyo Last Filed: 12/01/24 19:52> Patient Disposition: Still a Patient <NAGA Arroyo Last Filed: 12/01/24 19:52> Condition: Stable <NAGA Arroyo Last Filed: 12/01/24 19:52> Patient Language: Tongan <NAGA Arroyo Last Filed: 12/01/24 19:52> Prescriptions: No Action prednisone 10 mg tablet isosorbide mononitrate 30 mg tablet extended release 24 hr PO clopidogrel 75 mg tablet omeprazole 40 mg capsule,delayed release(DR/EC) citalopram 20 mg tablet montelukast 10 mg tablet hydralazine 50 mg tablet hydrochlorothiazide 25 mg tablet digoxin 125 mcg (0.125 mg) tablet ergocalciferol (vitamin D2) 1,250 mcg (50,000 unit) capsule levofloxacin 750 mg tablet Huber-24 400 mg capsule,extended release 24hr PO azithromycin 500 mg tablet 500 mg PO WEEKLY rosuvastatin 40 mg tablet Dupixent Syringe 300 mg/2 mL syringe SUBCUT Airsupra 90-80 mcg/actuation HFA aerosol inhaler 2 inh inhalation ONCE PRN (Reason: shortness of breath) 30 Days Qty: 10.7 0RF Rx Instructions: as a single dose; may repeat up to 6 doses per day (12 inhalations) <NAGA Arroyo Last Filed: 12/01/24 19:52> Follow-up/Referrals: [place],MD LAN [Primary Care Provider] - <NAGA Arroyo Last Filed: 12/01/24 19:52>
[2024-12-01 17:51] LABS: INR 1.0; Prothrombin Time 13.0 Seconds (11.1-14.7)
[2024-12-01 17:52] LABS: Alanine Aminotransferase 16 U/L (6-35); Albumin Level 3.7 g/dL (3.5-5.1); Alkaline Phosphatase 65 U/L (38-126); Anion Gap 5 mmol/L (4-12); Aspartate Amino Transferase 42 U/L (14-36); Bilirubin,Total 0.1 mg/dL (0.2-1.3); Blood Urea Nitrogen 21 mg/dL (7-17); Calcium 9.6 mg/dL (8.4-10.2); Carbon Dioxide 35 mmol/L (22-30); Chloride 99 mmol/L (98-107); Estimated CRCL calculation 29 ml/min; Estimated Glomerular Filt Rate 45; Glucose 122 mg/dL (65-110); Partial Thromboplastin Time 30.4 Seconds (22.3-36.8); Potassium 3.6 mmol/L (3.4-5.0); Sodium 139 mmol/L (137-145); Total Protein 6.8 g/dL (6.3-8.2)
[2024-12-01] MEDS: IPRATROPIUM 0.5 MG/ALBUTEROL SULFATE 2.5 MG AMPUL.NEB 3 ML INHALATION ×4 (18:02→21:35)
[2024-12-01 18:03] LABS: Troponin I < 0.012 ng/mL (0.000-0.034)
[2024-12-01] MEDS: MAGNESIUM SULF 2 GM/WATER 50ML 2 GM/50 ML BAG IVPB (18:05)
[2024-12-01 18:07] LABS: Alveolar/Arterial O2 Gradient 118.2 mmHg; Fractional Inspired Oxygen 32 %; HCO3 ABG 33.2 mEq/l (22.0-26.0); Oxygen Content ABG 15.1 %vol (16.0-22.0); Oxygen Saturation ABG 89.3 % (95.0-100.0); PCO2 ABG 47.8 mmHg (35.0-45.0); PO2 ABG 54.0 mmHg (80.0-100.0); PO2 FiO2 Ratio Arterial Blood 1.69 %
[2024-12-01 18:09] LABS: Liters per Minute 3.0 LPM; Modified Allen's Test Pass; Site Drawn LEFT RADIAL
--- OUTSIDE RECORDS SUMMARY | 2024-12-01 18:12 | XMS_ITS | Clinical Summary ---
Author Organization [facility] Address [address], [address] [address] Phone Care Team Providers Care Preparation Plant Supervisor Name Role Phone Marie Lawrence MD Primary Care Provider [phone] Khloe Herman APRN, VALVE SEATER OPERATOR Unavailable Allergies Active Allergy Reactions Criticality Noted Date Comments Amoxicillin Other (see Comments) 12/06/2023 Aspirin Unknown 09/25/2024 Diphenhydramine Anaphylaxis High 01/11/2023 Codeine Unknown 09/25/2024 Penicillins Unknown 09/25/2024 Medications montelukast (SINGULAIR) 10 MG Tablet Take 10 mg by mouth every evening. Active hydroCHLOROthia zide 25 MG Tablet Take 25 mg by mouth daily. Active ergocalciferol (VITAMIN D) 23967 UNIT Capsule Take 50,000 Units by mouth. [...] Type Department Care Team Description 11/25/2024 Refill [facility] PUL[facility]Y [facility] [address] [place] [address] Khloe Herman APRN, MIGUELITO Medication Refill 11/20/2024 Results [facility] [address] [place] [address] Khloe Herman APRN, VALVE SEATER OPERATOR CMP (COMPREHENSIVE METABOLIC PANEL) 11/19/2024 Telephone [facility] [address] [place] [address] Khloe Herman APRN, VALVE SEATER OPERATOR 11/18/2024 Telephone [facility] [address] [place] [address] Khloe Herman APRN, VALVE SEATER OPERATOR 11/15/2024 2:00 PM CDT Office Visit [facility] [address] [place] [address] Khloe Herman APRN, VALVE SEATER OPERATOR Bronchiectasis with acute exacerbation (HCC) (Primary Dx); Chronic respiratory failure with hypoxia (HCC); Eosinophilic asthma Discharge Disposition: Discharged to home or Selfcare 11/15/2024 Travel 10/18/2024 [facility]ill [facility] [address] [place] [address] Khloe Herman APRN, MIGUELITO Medication Refill 10/07/2024 Telephone [facility] [address] [place] [address] Khloe Herman APRN, VALVE SEATER OPERATOR 09/25/2024 1:00 PM CDT Office Visit [facility] [address] [place] [address] Khloe Herman APRN, CNP Eosinophilic asthma (Primary Dx); Bronchiectasis without acute exacerbation (HCC); Chronic respiratory failure with hypoxia (HCC) Discharge Disposition: Discharged to home or Selfcare 09/25/2024 Travel 09/23/2024 Refill [facility] [address] [place] [address] Khloe Herman APRN, CNP Medication Refill from [...] on file Legal Sex Female 7:13 PM IN [employer] [place] Gender Identity Not on file Sexual Orientation [...] Description 12/13/2024 1:00 PM CDT Office Visit [facility] [address] [place] [address] Khloe Herman APRN, MIGUELITO [address] [place] [address] Health Maintenance Due Date Last Done Comments [...] Result from Last 3 Months Insurance MEDICARE [employer] Care Teams Preparation Plant Supervisor Relationship Specialty Start Date End Date Marie Lawrence MD [address] [place] [id number] PCP - General 01/03/23 Khloe Herman APRN, MIGUELITO [address] [address] Nurse Practitioner Advanced Practice Nurse 01/03/23
--- OUTSIDE RECORDS SUMMARY | 2024-12-01 18:12 | XMS_ITS | Encounter Summary ---
Author Organization [facility] Address [address] [place] [address] Phone Care Team Providers Care Microsoft Access Developer Name Role Phone Marie Lawrence MD Primary Care Provider [phone] Khloe Herman APRN, TEMPERING KILN TENDER Unavailable [phone] Encounter Details Date Type Department Care Team (Late st Contact Info) Description 11/20/2024 Results Follow-Up [facility] - Pulmonology & Sleep Medicine [facility] [address] [place] [phone] Khloe Herman APRN, TEMPERING KILN TENDER [address] [facility] [address] [place] [address] CMP (COMPREHENSIVE METABOLIC PANEL) Social History Tobacco Use Types Packs/Day Years Used Date Smoking Tobacco: Never Smokeless Tobacco: Never Alcohol Use Standard Drinks/Week Comments Never 0 (1 standard drink = 0.6 oz pur e alcohol) Sexually Active Control Partners Comments Never Comments Unknown Sex and Gender Information Value Date Recorded Sex Assigned at Not on file Legal Sex Female 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 Gender Identity Not on file Sexual Orientation Not on file documented as of this encounter Plan of Treatment Upcoming Encounters Date Type Department Care Team (Late st Contact Info) Description 12/13/2024 1:00 PM CDT Office Visit [facility] PULMONOLOGY [facility] [address] [facility] [address] [place] [address] Khloe Herman APRN, MIGUELITO [address] [address] documented as of this encounter Visit Diagnoses Not on filedocumented in this encounter Care Teams Microsoft Access Developer Relationship Specialty Start Date End Date Marie Lawrence MD [address] [place] [id number] PCP - General 01/03/23 Khloe Herman APRN, CNP [address] [facility] [address] [place] [address] Nurse Practitioner Advanced Practice Nurse 01/03/23 documented as of this encounter
--- OUTSIDE RECORDS SUMMARY | 2024-12-01 18:12 | XMS_ITS | Continuity of Care Document ---
Author Organization [facility] Address [address] [place] [address] [place] [phone] Phone Care Team Providers Care Nursing Program Director Name Role Phone Olivier Ram MD Unavailable [...] Encounter Office/outpa tient Visit, New [facility], [id number] [place] [address] [address], [place], [place], [id number], [place] tel:[phone] SEC Clyde VAHID Professional YAG evaluation (chief complaint) Presence of intraocular lensOther secondary cataract, right eyeNevus of irises of both eyesPunctate keratitis, bilateralEnd othelial corneal dystrophyMei bomian gland dysfunction (MGD) of both eyes 9 Yo Aguayo. [address] [facility], [facility] [address], [place], [place], [id number], [place]. tel:[phone] Referring Provider: Roya Meehan, [facility] [address], [facility]. tel:[phone] [facility], [address] [place] [address] [address], [place], [place], [id number], [place] [phone] SEC Clyde REDDING Professional No Information 9 Yo Aguayo. [address], [address], [place], [place], [id number], [place]. tel:[phone] [facility], [address] [place] [address] [address], [place], [place], [id number], [place] tel:-[phone] [facility]Formerly [facility] No Information 4 Katina Ramirez. [address], [address], [place], [address], [place]. tel:[phone] [facility], [address] [place] [address] [address], [place], [place], [id number], [place] tel:-[phone] SEC Reagan Long No Information 4 Katina Ramirez. [address], [address], [place], [address], [place]. tel:[phone] [facility], [address], [place], [place], [id number], [phone] [facility] [place] No Information 0 7 4 Katina Ramirez. [address] [facility], [address], [place], [place], [facility], . tel:[phone] [facility], [address], [place], [place], [id number], [phone] SEC Reagan Longyumiko No Information 201 4 Katina Ramirez. [address] [facility], [place], [place], [facility], . tel:[phone] [facility], [address], [place], [place], [id number], [phone] SEC [place] Professional Psychophysic al visual disturbances SENILE NUCLEAR CATARACTPSEU DOEXFOL LENS CAPSULE Mar-2 4 Katina Ramirez. [address] [facility], [place], [place], [facility], . tel:[phone] Referring Provider: Nima Lisa OD F, [address] [facility] [place], [place], [address]. tel:[phone] Family History Family Member Type Diagnosis Age At Onset No Information Payers Payer name Insurance type Covered alliance party ID Authoriza tion(s) [place] [id number] Employ[employer] Loc 520 CI [id number] Social History Type Description Quantity Date Captured [...]
--- OUTSIDE RECORDS SUMMARY | 2024-12-01 18:13 | XMS_ITS | Clinical Summary ---
Author Organization [facility] Mamina Shkola Address [address] [facility] [place] [address] Care Team Providers Care Beading Machine Operator Name Role Phone Marie Drake MD Primary Care Provider + Source Comments [facility] Mamina Shkola,non-owned Affiliates and Associated Physician Practices is amultiple site organization consisting of ambulatory clinics and hospital sitesin [place], [place], [place] and [place]. This disclosure is being madepursuant to the Care Everywhere program and may not contain all information available regarding this patient. Last updated 18.[facility] Mamina Shkola Allergies Active Allergy Reactions Criticality Noted Date [...] complete this topic Insurance MEDICARE Care Teams Beading Machine Operator Relationship Specialty Start Date End Date Marie Drake MD [address] [place] [id number] PCP - General Family Medicine 01/05/24
[2024-12-01 18:21] LABS: Magnesium 1.9 mg/dL (1.6-2.3)
[2024-12-01 18:31] LABS: NT Pro B Type Natriuretic Pept 424 pg/mL (19.9-100)
[2024-12-01 18:42] LABS: Influenza A QL RT-PCR Negative (Negative); Influenza B QL RT-PCR Negative (Negative); RSV RNA, RT-PCR Negative (Negative); SARS-CoV-2 RNA PCR Negative (Negative)
--- NOTE | 2024-12-01 19:18 | P.HP_ITS ---
H&P: HPI History of Present Illness Date/Time: 12/01/24 19:18 Chief Complaint: Shortness of Breath Narrative: 74 y/o F with PMH of asthma, COPD, chronic hypoxic respiratory failure on supplemental O2 at baseline presents here with shortness of breath. The patient presents here from a local urgent care for further evaluation of worsening shortness of breath. The patient reports the shortness of breath has b een ongoing for the past 3 weeks. She was initially treated with steroids and Levaquin. Symptoms did not resolved and she was treated with a 2nd course of Levaquin at a higher strength - still has two doses left. Despite 2nd round of antibiotics, she reports she has continued worsened.The patient also reports she has been using her nebulizer 3 times a day without improvement. Shortness of breath is accompanied by a productive cough (yellow sputum). She denies fever, chills, body aches, nausea, vomiting diarrhea, chest pain, palpitations. She follows with a hair spring winder, Virgil CUEVA at [facility]. She wears 2L NC at baseline, she noted at home on her home pulse ox that her O2 was dropping into the 70s. She then titrated herself to 3L NC which she reports gave her little relief. 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 Initial VS at presentation: 98? F, HR 78, RR 20, 153/90, and 98% on 3L NC. ED workup showed: WBC 18.7, hemoglobin 11.8, coags within normal limits, D- dimer are within normal limits when age adjusted, ABG showed a pH 7.459/CO2 47.12/253/O2 saturation 89.3% on 3L nasal cannula, creatinine 1.17 and GFR 45 (no previous available for comparison), BNP within normal limits when adjusted for age, initial troponin negative, viral PCR negative. CXR showed reticular nodular right lower lung opacities may represent infection, including atypical variance, overlying chronic emphysematous/interstitial changes, possible 1.3 cm right lower lung pulmonary nodule versus nodular appearing consolidation from infection. Review of Systems Review of Systems: All systems reviewed & are unremarkable except as noted in HPI and below [facility] Past Medical History Medical History (Updated 12/01/24 @ 23:01 by Rosie Leahy, FLY SETTER) Depression Anxiety GERD (gastroesophageal reflux disease) Bronchiectasis Hyperlipidemia Hypertension Pseudomonas aeruginosa colonization lung COPD (chronic obstructive pulmonary disease) Asthma Surgical History Surgical History (Updated 12/01/24 @ 23:00 by Rosie Leahy APRN) History of hysterectomy secondary to microinvasive cervical cancer, 1981 History of cataract extraction History of appendectomy History of colectomy Family History Family History (Updated 12/01/24 @ 22:17 by Archana Orona RN) Mother Epilepsy Father COPD (chronic obstructive pulmonary disease) Sibling Ovarian ca Sibling Myocardial infarction Sibling Abdominal aortic aneurysm Sibling Cerebrovascular accident Social History Social History Smoking status: Never smoker Alcohol intake: never Substance use: never Do You Feel Safe in your Home?: Yes Lack of Transportation: No Lack of Food: Never True Current Housing: I Have Housing Concerned About Future Housing: No Difficulty Paying Gas/Electric Bills: No Difficulty Paying for Meds: No Currently Unemployed: No Education: Associate Degree Difficulty w/ Childcare or Family Care: YES Spiritual care concerns: No Meds Home Medications and Allergies Home Medications ?Medication ?Instructions ?Recorded ?Confirmed ?Type albuterol 90 mcg-budesonide 80 2 inh inhalation ONCE PRN 05/27/24 12/01/24 Rx mcg/actuation HFA aerosol inhaler shortness of breath 30 days #10.7 (Airsupra) grams azithromycin 500 mg tablet 500 mg PO WEEKLY 12/01/24 12/01/24 History clopidogrel 75 mg tablet mg 12/01/24 History digoxin 125 mcg (0.125 mg) tablet 12/01/24 History dupilumab 300 mg/2 mL subcutaneous mg subcut 12/01/24 History syringe (Dupixent) ergocalciferol (vitamin D2) 1,250 12/01/24 History mcg (50,000 unit) capsule hydralazine 50 mg tablet mg 12/01/24 History hydrochlorothiazide 25 mg tablet mg 12/01/24 History isosorbide mononitrate 30 mg mg PO 12/01/24 History tablet,extended release 24 hr levofloxacin 750 mg tablet mg 12/01/24 History montelukast 10 mg tablet mg 12/01/24 History omeprazole 40 mg capsule,delayed mg 12/01/24 History release prednisone 10 mg tablet mg 12/01/24 History rosuvastatin 40 mg tablet mg 12/01/24 History theophylline 400 mg mg PO 12/01/24 History capsule,extended release 24 hr (Huber-24) Allergies Allergy/AdvReac Type Severity Reaction Status Date / Time aspirin Allergy Severe Dyspnea / Verified 12/01/24 17:42 SOB codeine Allergy Severe Dyspnea / Verified 12/01/24 17:42 SOB diphenhydramine (From Allergy Severe Dyspnea / Verified 12/01/24 17:42 Benadryl) SOB minocycline (From Minocin) Allergy Severe Dyspnea / Verified 12/01/24 17:42 SOB Penicillins Allergy Severe Dyspnea / Verified 12/01/24 17:42 SOB Tetanus Vaccines and Toxoid Allergy Severe Dyspnea / Verified 12/01/24 17:42 SOB Vital Signs Vital Signs - 24 hr 12/01/24 17:23 12/01/24 17:39 12/01/24 17:39 Temperature 98.0 F Pulse Rate 78 Respiratory Rate 20 Blood Pressure 153/90 H Pulse Oximetry 98 98 98 Oxygen Delivery Room Air Nasal Cannula Nasal Cannula Oxygen Flow Rate 3 3 12/01/24 18:02 12/01/24 18:22 12/01/24 18:25 Temperature Pulse Rate 77 81 80 Respiratory Rate 20 20 29 H Blood Pressure 144/80 H Pulse Oximetry 95 98 Oxygen Delivery BiPAP Oxygen Flow Rate 12/01/24 18:26 12/01/24 18:39 12/01/24 19:08 Temperature Pulse Rate 86 82 88 Respiratory Rate 21 H 24 H 20 Blood Pressure 137/68 Pulse Oximetry 99 Oxygen Delivery Oxygen Flow Rate Exam Const: General: comfortable and no acute distress Other: , female, nontoxic appearance HENMT: Face/Nose/Sinus: Normal nares present Mouth: Yes moist mucous membranes Eyes: General: appearance normal, both eyes and all related structures Sclera: sclerae normal Pupils: Equal, round and reactive pupils present EOM: EOMs intact bilaterally Resp: Effort & Inspection: normal respiratory effort Other: tolerating BiPAP well. Scattered wheezing and pleural rub. No appreciable crackles. Cardio: Rate: regular rate Rhythm: regular rhythm Other: S1-S2 present without murmur, rub, ectopy GI: Other: Abdomen soft, nondistended, nontender. Normoactive bowel sounds in all quadrants. Skin: General skin exam: normal color and no rashes or lesions noted Wounds: no wounds Neuro: Speech: normal speech Motor exam (neuro): 5/5 motor strength present throughout Sensory Exam: normal sensation Other: A&O x4 Extrem: General: normal to inspection Psych: Mental Status: mental status grossly normal Affect: normal affect Other: good insight and judgment, very pleasant H&P: Results Labs Labs: Short CBC 12/01/24 Range/Units 17:28 WBC 18.7 H (4.5-10.0) K/mm3 Hgb 11.8 L (12.0-15.0) g/dL Hct 38.0 (37.0-47.0) % Plt Count 386 H (150-375) k/mm3 BMP 12/01/24 17:28 Sodium 139 Potassium 3.6 Chloride 99 Carbon Dioxide 35 H BUN 21 H Creatinine 1.17 H Glucose 122 H Calcium 9.6 Cardiac Enzymes 12/01/24 Range/Units 17:28 Troponin I < 0.012 (0.000-0.034) ng/mL Liver Function 12/01/24 Range/Units 17:28 Total Bilirubin 0.1 L (0.2-1.3) mg/dL AST 42 H (14-36) U/L ALT 16 (6-35) U/L Alkaline Phosphatase 65 (38-126) U/L Albumin 3.7 (3.5-5.1) g/dL Assessment and Plan Assessment and plan (1) Acute on chronic hypoxic respiratory failure: Code(s): J96.21 - Acute and chronic respiratory failure with hypoxia Status: Acute Assessment and Plan: - CXR: Reticulonodular right lower lung opacities may represent infection, including atypical variants, overlying chronic emphysematous/interstitial changes. Possible 1.3 cm right lower lung pulmonary nodule, versus nodular appearing consolidation from infection. Recommend nonemergent but timely low-dose noncontrast CT of the chest for further evaluation. ->> check non-con chest CT - initial ABG showed Mild alkalosis, mild hypercapnia, 0254, HC03 33.2, O2 saturation 89.3% on 3L nasal cannula. - suspect acute on chronic respiratory failure secondary to COPD exacerbation and possible pneumonia. Will place patient back on steroid course, continue antibiotics, and scheduled DuoNebs. See respective sections. - will continue BiPAP through the evening, trial off tomorrow morning - pulmonology consulted (2) CAP (community acquired pneumonia): Qualifiers: Laterality: right Lung location: lower lobe of lung Qualified Code(s): J18.9 - Pneumonia, unspecified organism Code(s): J18.9 - Pneumonia, unspecified organism Status: Acute Assessment and Plan: - did not meet SIRS criteria - CXR showed possibility of right lower lobe pneumonia, distribution may indicate atypical variants - risk factors and complicating factors: COPD exacerbation, failed oral antibiotic course x2 outpatient - started on ceftriaxone and azithromycin in the ED, will exchanged to cefepime, azithromycin, and vancomycin given patient has failed 2 courses of outpatient p.o. antibiotics -> further exchanged to Meropenem for pseudomonal coverage given history of pseudomonal colonization. Vancomycin discontinued as her MRSA was negative. Azithromycin additionally exchanged as the patient is on digoxin. Will place patient back on Levaquin for atypical coverage. - check MRSA PCR, sputum culture, mycoplasma, Legionella, pneumococcal - Viral PCR negative - supportive care: Mucinex, Tylenol, Tessalon Perles, DuoNebs, steroids - pulmonology consulted CT chest noncon: Diffuse tree-in-bud opacities with severe bronchiectasis, concerning for atypical infection, including but not limited to: tuberculosis, MAC, fungal infection, and bacterial bronchopneumonia. Chronic aspiration considered less likely given the distribution. Mild cardiomegaly. Trace pericardial effusion. *Patient to be moved to a negative pressure room with airborne precautions and TB skin test ordered, blood test not available at this facility. 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 Will additionally add AFB culture/smear and fungal culture and smear. (3) COPD exacerbation: Code(s): J44.1 - Chronic obstructive pulmonary disease with (acute) exacerbation Status: Acute Assessment and Plan: - Duonebs [facility] - started on steroid course: Methylprednisolone (4) Hypertension: Code(s): I10 - Essential (primary) hypertension Status: Chronic Assessment and Plan: - chronic, currently 137/73 - continue home medication: hydralazine, hydrochlorothiazide, Imdur - monitor Plan Diet:Heart healthy GI Prophylaxis: not currently indicated DVT Prophylaxis: Lovenox SQ IV fluids: LR 150 mL/hr x 1L Lines/Tubes: peripheral IV Code Status: full code Quality VTE Prophylaxis VTE prophylaxis: pharmacologic ordered Hospitalist [facility] Advance Care Plan I have confirmed that the patient's Advanced Care Plan is present, code status is documented, or surrogate decision maker is listed in patient medical record.: Yes Medication Reconciliation I have utilized all available resources to obtain, update and review the patients current medications (includes all prescriptions, OTC, herbals, cannabis, and nutritional supplements).: Yes
[2024-12-01] MEDS: AZITHROMYCIN 500 MG/NS 250 ML 500 MG/250 ML BAG 250 MG IVPB (19:27)
[2024-12-01] MEDS: VANCOMYCIN 1,500 MG/NS 500 ML 1,500 MG/500 ML BAG 250 MG IVPB (20:37)
[2024-12-01 21:25] LABS: MRSA (PCR) NOT DETECTED (NOT DETECTE)
--- NOTE | 2024-12-01 21:44 | ADMGEN ---
This patient, Merle Vaca, was admitted to IMU Room 202-. Patient/family oriented to hospital policies and general routines including ID bracelet, bed and alarms, visiting hours, pain management, procedures, bathroom and other care routines, personal items, smoking policy, room service/diet, and visiting hours. Information on how to activate the Rapid Response Team has been discussed. Patient/Family are encouraged to report perceived risks to care and to ask questions if they do not understand what they are told or what they should do.
[2024-12-01] MEDS: LACTATED RINGERS 1,000 ML 150 ML IV CONT (22:00)
[2024-12-01] MEDS: guaiFENesin 12 HR 600 MG TABCR PO (22:01)
[2024-12-01] MEDS: CEFEPIME 2 GM/NS 50 ML 2 GM/50 ML BAG IVPB (22:02)
[2024-12-01] MEDS: TUBERCULIN, PPD INJ 5 TU/0.1 ML INTRADERM (23:07)
[2024-12-02] VITALS (28 sets, daily range): BP systolic 110–145; BP diastolic 55–86; PULSE 65–104; RESP 17–36; TEMP 36.5–36.9; O2SAT 95–100
[2024-12-02] MEDS: MONTELUKAST SODIUM 10 MG TABLET PO ×2 (00:55→20:53)
[2024-12-02] MEDS: levoFLOXacin 750 MG/D5W 150 ML 750 MG/150 ML BAG 100 MG IVPB (00:56)
[2024-12-02] MEDS: IPRATROPIUM 0.5 MG/ALBUTEROL SULFATE 2.5 MG AMPUL.NEB 3 ML INHALATION ×4 (02:07→20:23)
[2024-12-02 03:36] LABS: Hematocrit 36.2 % (37.0-47.0); Hemoglobin 11.3 g/dL (12.0-15.0); Immature Granulocyte Percent A 0.7 % (0-0.5); Lymphocytes Absolute Auto 0.43 K/mm3 (0.9-3.2); Mean Corpuscular HGB Conc 31.2 g/dl (32-36); Mean Corpuscular Hemoglobin 27.2 pg (26-34); Mean Corpuscular Volume 87.2 fl (80-100); Nucleated Red Blood Cells Absolute Auto 0.000 K/mm3 (0.0-0.012); Nucleated Red Blood Cells Perc 0.0 % (0.0-0.2); Platelet Count Result 373 k/mm3 (150-375); Red Blood Count 4.15 M/mm3 (4.2-5.4); White Blood Count 17.1 K/mm3 (4.5-10.0)
[2024-12-02 03:46] LABS: Alanine Aminotransferase 23 U/L (6-35); Albumin Level 3.8 g/dL (3.5-5.1); Alkaline Phosphatase 61 U/L (38-126); Anion Gap 11 mmol/L (4-12); Aspartate Amino Transferase 31 U/L (14-36); Bilirubin,Total 0.2 mg/dL (0.2-1.3); Blood Urea Nitrogen 22 mg/dL (7-17); Calcium 9.3 mg/dL (8.4-10.2); Carbon Dioxide 31 mmol/L (22-30); Chloride 97 mmol/L (98-107); Estimated CRCL calculation 35 ml/min; Estimated Glomerular Filt Rate 57; Glucose 177 mg/dL (65-110); Potassium 3.4 mmol/L (3.4-5.0); Sodium 139 mmol/L (137-145); Total Protein 6.7 g/dL (6.3-8.2)
[2024-12-02] MEDS: SODIUM CHLOR 3% 15 ML NEB (RESPIRATORY THERAPY) 6 ML INHALATION (05:32)
[2024-12-02] MEDS: MEROPENEM 1 GM/NS 100 ML 1 GM/100 ML BAG IVPB (06:35)
[2024-12-02] MEDS: ISOSORBIDE MONONITRATE 30 MG TAB.ER.24H PO (08:05)
[2024-12-02] MEDS: CLOPIDOGREL BISULFATE 75 MG TABLET PO (08:06)
[2024-12-02] MEDS: PANTOPRAZOLE 40 MG TABLET PO ×2 (08:06→20:53)
[2024-12-02] MEDS: guaiFENesin 12 HR 600 MG TABCR PO (08:06)
[2024-12-02] MEDS: ROSUVASTATIN 20 MG TABLET 40 MG PO (08:06)
[2024-12-02] MEDS: ENOXAPARIN 40 MG/0.4 ML SYRINGE SUB-Q (08:07)
[2024-12-02] MEDS: DIGOXIN TAB 125 MCG TABLET PO (08:09)
--- NOTE | 2024-12-02 11:19 | PHAR ---
Home medications Huber-24 400mg capsules identified in pharmacy and returned to ICU nursing unit
--- NOTE | 2024-12-02 14:31 | P.CONPL_ITS ---
Assessment and Plan Assessment and plan (1) Bronchiectasis: Code(s): J47.9 - Bronchiectasis, uncomplicated Status: Acute Assessment and Plan: Regarding her bronchiectasis patient Was admitted to the hospital with what sounds like hypercarbic respiratory failure 2 years ago. She was treated with BiPAP and told she had bronchiectasis and discharged on home noninvasive ventilator. As an outpatient she saw a construction carpenters helper at [facility] after this and was told she had bronchiectasis. She is unsure if she had a complete workup but apparently they had a case conference with multiple subspecialists there. At baseline she is on theophylline 400 today, trelegy 100, , azithromycin 500 3 times a week, vest therapy twice a day, Dupixent injection every 2 weeks. 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 Patient's last prednisone use was 18 months ago. At baseline the patient says she can walk around her house but then has respiratory limitations. She uses no oxygen at rest, 2 L with activity and 2 L bleed in at night. She is a never smoker and never exposed to secondhand smoke. Her father of respiratory issues at age 45 and thinks he had the same condition as her. currently the patient has 4 week continued respiratory deterioration with increased cough, increased phlegm production and change in phlegm production with no fever or hemoptysis. She presents with a leukocytosis and a CT scan with bronchiectasis and tree-in-bud infiltrates throughout. COVID influenza and RSV RT PCR negative, MRSA negative. She has no hypercarbic respiratory failure. Etiology of current clinical deterioration includes: Flare of bronchiectasis, pneumonia, bronchitis, Asthma exacerbation. plan: Improved with antibiotics, bronchodilators and steroids. Will continue Levaquin and meropenem day 1 of both, she received 1 day of ceftriaxone and azithromycin on 12/01, so day 2 total antibiotics. Sputum for bacterial culture is pending. I will send a respiratory pathogen panel. I will send serologies looking for an autoimmune disease process, immunodeficiency as an etiology to the patient's bronchiectasis. I will send total IgG, IgM, IgA, IgE, IgG subclass, Aspergillus IgG, Aspergillus IgE, EROS screen and rheumatoid factor. I will check an alpha 1 anti trypsin. I will send sputum for AFB q.a.m. x3 looking for atypical mycobacterium. I am not concerned about mycobacterium tuberculosis and from my perspective can discontinue respiratory isolation. QuantiFERON gold is pending. I will decrease her Solu-Medrol to 20 mg IV q.6 hours. Continue DuoNebs q.6 hours, increase guaifenesin to 1200 mg p.o. b.i.d., I will continue her theophylline 400 mg q.day and will give her her home dose. Will follow with you. (2) Acute on chronic respiratory failure with hypoxia and hypercapnia: Code(s): J96.21 - Acute and chronic respiratory failure with hypoxia; J96.22 - Acute and chronic respiratory failure with hypercapnia Status: Acute Assessment and Plan: Patient tells me she has a history of hypercarbic respiratory failure and requires BiPAP through [facility] with 2 L bleed in at night. Patient tells me she wore hospital BiPAP rate of 14 pressures 12/6, rise of 1, inspiratory time 1.0, 32% FiO2 and that the air delivery felt fine but the mask was more uncomfortable. Plan: I will continue her current hospital settings as above with 2 L bleed in. I will obtain a download from [facility]. I recommended the patient bring in her home machine with an over the mouth under the nose mask that is more comfortable for her. History of Present Illness History of Present Illness Consult date: 12/02/24 Chief complaint: COPD Exacerbation Narrative: 12/02/2024: This is a new pulmonary consult for COPD 74-year-old with a history of asthma, bronchiectasis with chronic hypoxemic and hypercarbic respiratory failure on supplemental oxygen and noninvasive ventilation at night. regarding patient's asthma she was diagnosed as a young child and remembers having asthma all her life. She has been on inhaled medicines all her life. Regarding her bronchiectasis patient Was admitted to the hospital with what sounds like hypercarbic respiratory failure 2 years ago. She was treated with BiPAP and told she had bronchiectasis and discharged on home noninvasive ventilator. As an outpatient she saw a construction carpenters helper at [facility] after this and was told she had bronchiectasis. She is unsure if she had a complete workup but apparently they had a case conference with multiple subspecialists there. At baseline she is on theophylline 400 today, trelegy 100, , azithromycin 500 3 times a week, vest therapy twice a day, Dupixent injection every 2 weeks. 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 Patient's last prednisone use was 18 months ago. At baseline the patient says she can walk around her house but then has respiratory limitations. She uses no oxygen at rest, 2 L with activity and 2 L bleed in at night. She is a never smoker and never exposed to secondhand smoke. Her father of respiratory issues at age 45 and thinks he had the same condition as her. Approximately 1 month ago the patient was fatigued, had worsening shortness of breath and increased phlegm and was given a course of Levaquin and Solu-Medrol by her PCP. Patient showed no improvement and about 2 weeks ago was prescribed another dose of Medrol and Levaquin. Patient states for the last month she has been run down taking care of her who has had a stroke. For 1 month she has had worsening cough, increased phlegm production the phlegm has changed and is times as pudding consistency and very slimy. It is yellow in color with no blood. She denies fever, chills, rigors. She denies chronic weight loss. Patient was seen at urgent care on 12/01/24 and then in the emergency department with a blood pressure of 153/90, heart rate 78, respiratory is 20, on 3 L nasal cannula saturation 98%. She was labored, had decreased breath sounds and wheezes. Her white blood cell count was 18.7 with 0.2% eosinophils, creatinine 1.17, BNP 424, COVID, influenza, RSV RT PCR assay negative, MRSA swab negative, ABG on 3 L nasal cannula 7.47/48/54. CT scan of the chest showed diffuse panlobular cylindrical bronchiectasis with bilateral diffuse tree-in-bud infiltrates. There were no consolidations, no pleural disease, no bullous emphysema, no interstitial lung disease. Patient was initiated on Solu-Medrol, bronchodilators, ceftriaxone and azithromycin. Ceftriaxone and azithromycin were changed to Levaquin and meropenem. 12/02/2024: Patient says she is feeling better. She says that her cough and phlegm production her 80% back to her normal. She was placed on BiPAP last night and said that the air delivery felt the same but the mask was more comfortable than her home mask. She is afebrile. Currently she is on 2.5 L nasal cannula saturations 94-95%. Silva blood cell count 17.1, creatinine 0.96. DATA: 12/01/24: EXAMINATION: CT diagnostic chest wo con INDICATION: nodule vs infection COMPARISON: X-ray chest, same date. FINDINGS: CHEST: Thoracic aorta: Borderline ectasia of the ascending aorta measuring up to 3.9 cm. Moderate atherosclerotic calcifications. Visualization of the aortic wall as can be seen with anemia. Lung parenchyma and airways: Significant biapical pleural scarring. Tree-in-bud opacities in all lung lobes. Widespread cystic and cylindrical bronchiectasis. Several areas of the cystic bronchiectasis contain fluid or aerated secretions. Thoracic inlet, axillae and chest wall: No thyroid or soft tissue mass. No axillary lymphadenopathy. Mediastinum: Dilated central pulmonary arteries as can be seen with pulmonary hypertension. Large hiatal hernia containing approximately one half of the stomach. Heart and pericardium: Mild cardiomegaly. Aortic valve and mitral calcifications Trace pericardial fluid. Coronary artery calcifications: Mild. Pleura: Fat-containing right posterior diaphragmatic hernia. Upper abdomen: No significant finding. Thoracic bones: No acute osseous finding in the chest. IMPRESSION: Diffuse tree-in-bud opacities with severe bronchiectasis, concerning for atypical infection, including but not limited to: tuberculosis, MAC, fungal infection, and bacterial bronchopneumonia. Chronic aspiration considered less likely given the distribution. Mild cardiomegaly. Trace pericardial effusion. Results reported telephonically to Debbie Mac RN by Dr. Willson at 10:29 PM on 12/01/2024. Review of Systems 2 Constitutional: Constitutional: Reports no additional constitutional complaints Eyes: Eyes: Reports no additional eye complaints ENT: Reports system reviewed and no additional complaints, except as documented Cardiovascular: Cardiovascular: Reports no additional cardiovascular complaints Respiratory: Respiratory: Reports no additional respiratory complaints Gastrointestinal: Gastrointestinal: Reports no additional gastrointestinal complaints Musculoskeletal: Musculoskeletal: Reports no additional musculoskeletal complaints Neurologic: Reports system reviewed and no additional complaints, except as documented Psychiatric: Psychiatric: Reports no additional psychiatric complaints Endocrine: Endocrine: Reports no additional endocrine complaints Hematologic/Lymphatic: Hematologic/Lymphatic: Reports no additional hematologic/lymphatic complaints Allergic/Immunologic: Allergic/Immunologic: Reports no additional allergic/immunologic complaints [facility] Past Medical History Medical History (Updated 12/02/24 @ 14:42 by Monty Victor MD) Depression Anxiety GERD (gastroesophageal reflux disease) Bronchiectasis Hyperlipidemia Hypertension Pseudomonas aeruginosa colonization lung COPD (chronic obstructive pulmonary disease) Asthma Surgical History Surgical History (Updated 12/01/24 @ 23:00 by Rosie Leahy APRN) History of hysterectomy secondary to microinvasive cervical cancer, 1982 History of cataract extraction History of appendectomy History of colectomy Family History Family History (Updated 12/01/24 @ 22:17 by Archana Orona RN) Mother Epilepsy Father COPD (chronic obstructive pulmonary disease) Sibling Ovarian ca Sibling Myocardial infarction Sibling Abdominal aortic aneurysm Sibling Cerebrovascular accident Social History Social History Smoking status: Never smoker Alcohol intake: never Substance use: never Do You Feel Safe in your Home?: Yes Lack of Transportation: No Lack of Food: Never True Current Housing: I Have Housing Concerned About Future Housing: No Difficulty Paying Gas/Electric Bills: No Difficulty Paying for Meds: No Currently Unemployed: No Education: Associate Degree Difficulty w/ Childcare or Family Care: YES Spiritual care concerns: No Meds Home Medications and Allergies Home Medications ?Medication ?Instructions ?Recorded ?Confirmed ?Type albuterol 90 mcg-budesonide 80 2 inh inhalation ONCE PRN 05/27/24 12/01/24 Rx mcg/actuation HFA aerosol inhaler shortness of breath 30 days #10.7 (Airsupra) grams azithromycin 500 mg tablet 500 mg PO WEEKLY 12/01/24 12/01/24 History clopidogrel 75 mg tablet 75 mg PO DAILY 12/01/24 12/01/24 History digoxin 125 mcg (0.125 mg) tablet 0.125 mg PO DAILY 12/01/24 12/01/24 History dupilumab 300 mg/2 mL subcutaneous 300 mg subcut .EVERY 2 WEEKS 12/01/24 12/01/24 History syringe (Dupixent) ergocalciferol (vitamin D2) 1,250 1,250 mcg PO .ONE EVERY TWO WEEKS 12/01/24 12/01/24 History mcg (50,000 unit) capsule hydralazine 50 mg tablet 50 mg PO DAILY 12/01/24 12/01/24 History hydrochlorothiazide 25 mg tablet 25 mg PO DAILY 12/01/24 12/01/24 History isosorbide mononitrate 30 mg 30 mg PO DAILY 12/01/24 12/01/24 History tablet,extended release 24 hr levofloxacin 750 mg tablet 750 mg PO DAILY 12/01/24 12/01/24 History montelukast 10 mg tablet 10 mg PO QPM 12/01/24 12/01/24 History omeprazole 40 mg capsule,delayed 40 mg PO QPM 12/01/24 12/01/24 History release prednisone 10 mg tablet 10 mg PO DAILY 12/01/24 12/01/24 History rosuvastatin 40 mg tablet 40 mg PO DAILY 12/01/24 12/01/24 History theophylline 400 mg 400 mg PO DAILY 12/01/24 12/01/24 History capsule,extended release 24 hr (Huber-24) Allergies Allergy/AdvReac Type Severity Reaction Status Date / Time aspirin Allergy Severe Dyspnea / Verified 12/01/24 17:42 SOB codeine Allergy Severe Dyspnea / Verified 12/01/24 17:42 SOB diphenhydramine (From Allergy Severe Dyspnea / Verified 12/01/24 17:42 Benadryl) SOB minocycline (From Minocin) Allergy Severe Dyspnea / Verified 12/01/24 17:42 SOB Penicillins Allergy Severe Dyspnea / Verified 12/01/24 17:42 SOB Tetanus Vaccines and Toxoid Allergy Severe Dyspnea / Verified 12/01/24 17:42 SOB Vital Signs Vital Signs - 24 hr 12/01/24 17:23 12/01/24 17:39 12/01/24 17:39 Temperature 36.7 C Pulse Rate 78 Respiratory Rate 20 Blood Pressure 153/90 H Pulse Oximetry 98 98 98 Oxygen Delivery Room Air Nasal Cannula Nasal Cannula Oxygen Flow Rate 3 3 Fraction of Inspired Oxygen 12/01/24 18:02 12/01/24 18:22 12/01/24 18:25 Temperature Pulse Rate 77 81 80 Respiratory Rate 20 20 29 H Blood Pressure 144/80 H Pulse Oximetry 95 98 Oxygen Delivery BiPAP Oxygen Flow Rate Fraction of Inspired Oxygen 12/01/24 18:26 12/01/24 18:39 12/01/24 19:08 Temperature Pulse Rate 86 82 88 Respiratory Rate 21 H 24 H 20 Blood Pressure 137/68 Pulse Oximetry 99 Oxygen Delivery Oxygen Flow Rate Fraction of Inspired Oxygen 12/01/24 21:35 12/01/24 21:37 12/01/24 21:54 Temperature 36.8 C Pulse Rate 88 80 87 Respiratory Rate 22 H 31 H 24 H Blood Pressure 137/73 Pulse Oximetry 96 Oxygen Delivery Oxygen Flow Rate Fraction of Inspired Oxygen 12/01/24 21:58 12/01/24 22:44 12/02/24 00:00 Temperature 36.6 C Pulse Rate 87 68 Respiratory Rate 29 H 36 H Blood Pressure 122/66 Pulse Oximetry 97 97 98 Oxygen Delivery BiPAP BiPAP Oxygen Flow Rate Fraction of Inspired Oxygen 32 12/02/24 00:00 12/02/24 00:00 12/02/24 00:00 Temperature Pulse Rate 74 74 Respiratory Rate 20 Blood Pressure Pulse Oximetry 97 98 Oxygen Delivery BiPAP BiPAP Oxygen Flow Rate Fraction of Inspired Oxygen 32 32 12/02/24 02:00 12/02/24 02:08 12/02/24 02:11 Temperature Pulse Rate 66 70 70 Respiratory Rate 30 H 30 H Blood Pressure Pulse Oximetry 97 Oxygen Delivery BiPAP Oxygen Flow Rate Fraction of Inspired Oxygen 12/02/24 02:20 12/02/24 04:00 12/02/24 04:00 Temperature 36.6 C Pulse Rate 72 66 65 Respiratory Rate 26 H 17 Blood Pressure 136/68 Pulse Oximetry 100 Oxygen Delivery Oxygen Flow Rate Fraction of Inspired Oxygen 12/02/24 04:00 12/02/24 05:30 12/02/24 05:48 Temperature Pulse Rate 67 67 Respiratory Rate 20 20 Blood Pressure Pulse Oximetry Oxygen Delivery BiPAP Oxygen Flow Rate Fraction of Inspired Oxygen 32 12/02/24 05:49 12/02/24 07:55 12/02/24 07:57 Temperature 36.6 C Pulse Rate 67 72 69 Respiratory Rate 20 20 22 H Blood Pressure 145/86 H Pulse Oximetry 100 100 Oxygen Delivery Nasal Cannula Oxygen Flow Rate 4 Fraction of Inspired Oxygen 40 12/02/24 08:00 12/02/24 08:00 12/02/24 08:05 Temperature Pulse Rate 70 70 Respiratory Rate 20 Blood Pressure Pulse Oximetry 100 Oxygen Delivery Nasal Cannula Oxygen Flow Rate 4 Fraction of Inspired Oxygen 12/02/24 08:09 12/02/24 10:00 12/02/24 12:00 Temperature 36.8 C Pulse Rate 69 95 104 H Respiratory Rate 23 H Blood Pressure 110/55 L Pulse Oximetry 95 Oxygen Delivery Oxygen Flow Rate Fraction of Inspired Oxygen 12/02/24 12:00 12/02/24 12:00 Temperature Pulse Rate 91 Respiratory Rate Blood Pressure Pulse Oximetry 95 Oxygen Delivery Nasal Cannula Oxygen Flow Rate 2.5 Fraction of Inspired Oxygen Exam 2 Narrative: Comfortable Const: General: cooperative, healthy appearing and comfortable O rientation/consciousness: oriented to person, oriented to place and oriented to time HENMT: Head: normal to inspection Ears: hearing grossly normal bilaterally Eyes: General: appearance normal, both eyes and all related structures Neck: Neck: normal visual inspection Chest: Chest palpation & inspection: normal inspection of the chest Resp: Effort & Inspection: normal respiratory effort and able to speak in complete sentences Auscultation: crackles, no rales, no rhonchi, no wheezes and lung sounds not diminished Other: patient with inspiratory squeaks and crackles. No wheezing. Cardio: Jugular venous distension: no JVD GI: Inspection: normal to inspection GI Palp: No abdominal tenderness Skin: General skin exam: normal color Neuro: General: oriented to person, oriented to place and oriented to time Extrem: General: normal to inspection Psych: Appearance: grossly normal Results Laboratory Findings 12/02/24 03:31 12/02/24 03:31 ABG, PT/INR, D-dimer: ABG ABG pH 7.459 (7.350-7.450) H 12/01/24 18:01 ABG pCO2 47.8 mmHg (35.0-45.0) H 12/01/24 18:01 ABG pO2 54.0 mmHg (80.0-100.0) L 12/01/24 18:01 ABG O2 Saturation 89.3 % (95.0-100.0) L 12/01/24 18:01 PT/INR, D-dimer PT 13.0 Seconds (11.1-14.7) 12/01/24 17:28 INR 1.0 12/01/24 17:28 D-Dimer 0.54 ug/mL (<0.48) H 12/01/24 17:27 Abnormal lab findings: Abnormal Labs 12/01/24 12/01/24 12/01/24 17:27 17:28 17:52 WBC 18.7 H RBC Hgb 11.8 L Hct MCHC 31.1 L Plt Count 386 H Immature Gran % (Auto) Neut % (Auto) 87.2 H Lymph % (Auto) 7.0 L Faulkner % (Auto) Baso % (Auto) Lymph # (Auto) Faulkner # (Auto) 0.9 H Abs Immat Gran (auto) 0.10 H Absolute Neuts (auto) 16.3 H D-Dimer 0.54 H ABG pH ABG pCO2 ABG pO2 ABG HCO3 ABG O2 Saturation ABG O2 Content Oxyhemoglobin Chloride Carbon Dioxide 35 H BUN 21 H Creatinine 1.17 H Estimated GFR 45 L Glucose 122 H Total Bilirubin 0.1 L AST 42 H NT-Pro-B Natriuret Pep 424 H 12/01/24 12/02/24 18:01 03:31 WBC 17.1 H RBC 4.15 L Hgb 11.3 L Hct 36.2 L MCHC 31.2 L Plt Count Immature Gran % (Auto) 0.7 H Neut % (Auto) 96.2 H Lymph % (Auto) 2.5 L Faulkner % (Auto) 0.5 L Baso % (Auto) 0.1 L Lymph # (Auto) 0.43 L Faulkner # (Auto) Abs Immat Gran (auto) 0.12 H Absolute Neuts (auto) 16.5 H D-Dimer ABG pH 7.459 H ABG pCO2 47.8 H ABG pO2 54.0 L ABG HCO3 33.2 H ABG O2 Saturation 89.3 L ABG O2 Content 15.1 L Oxyhemoglobin 88.1 L Chloride 97 L Carbon Dioxide 31 H BUN 22 H Creatinine Estimated GFR 57 L Glucose 177 H Total Bilirubin AST NT-Pro-B Natriuret Pep Diagnostic Findings Additional studies: ITS Impressions Chest X-Ray 12/01/24 18:29 IMPRESSION: Reticulonodular right lower lung opacities may represent infection, including atypical variants, overlying chronic emphysematous/interstitial changes. Possible 1.3 cm right lower lung pulmonary nodule, versus nodular appearing consolidation from infection. Recommend nonemergent but timely low-dose noncontrast CT of the chest for further evaluation. Chest CT 12/01/24 22:09
[2024-12-02] MEDS: THEOPHYLLINE 400 MG 1 EACH BY MOUTH (16:53)
[2024-12-02] MEDS: MEROPENEM 1 GM in SODIUM CHLORIDE 0.9% IV 100 ML 200 ML IVPB (17:08)
--- NOTE | 2024-12-02 17:49 | PC.NURSE ---
This patient, Merle Vaca, was transferred to [ [facility]] on 12/02/24 at 1745. Personal belongings sent with patient. Report given to [Gabrielle ]. Appropriate documentation sent with patient.
--- NOTE | 2024-12-02 18:14 | P.PNIM_ITS ---
Progress Note: A&P Assessment and Plan (1) Acute on chronic hypoxic respiratory failure: Code(s): J96.21 - Acute and chronic respiratory failure with hypoxia Status: Acute Assessment and Plan: Patient presents with SOB. ABG - 7.46/48/54 on 3L CXR showing reticulonodular right lower lung opacities may represent infection, including atypical variants, overlying chronic emphysematous/interstitial changes and a possible 1.3 cm right lower lung pulmonary nodule CT chest without contrast showing diffuse tree-in-bud opacities with severe bronchiectasis, concerning for atypical infection, mild cardiomegaly and trace pericardial effusion. Acute on chronic respiratory failure secondary to COPD exacerbation and atypical pneumonia. Started on steroids, bronchodilators and abx. Pulmonary consulted and appreciate their input. Able to come off bipap today. Continue bipap as needed (2) CAP (community acquired pneumonia): Qualifiers: Laterality: right Lung location: lower lobe of lung Qualified Code(s): J18.9 - Pneumonia, unspecified organism Code(s): J18.9 - Pneumonia, unspecified organism Status: Acute Assessment and Plan: Imaging as above. She did not meet SIRS criteria. She failed 2 course of Levaquin prior to admission. Started on ceftriaxone and azithromycin in the ED but changed to cefepime, azithromycin, and vancomycin then to exchanged to Meropenem for pseudomonal coverage MRSA nasal swab negative so Vancomycin discontinued. Azithro stopped and Levaquin added for atypical coverage COVID, RSV and influenza PCR negative. Respiratory viral panel ordered. BCx pending. Sputum culture pedning. Mycoplasma, Legionella Ag, pneumococcal Ag ordered - Viral PCR negative Testing for TB with sputum. Will add quant gold test. Aspergillus testing and testing for connective tissue disease order Supportive care: Mucinex, Tylenol, Tessalon Perles, DuoNebs Pulmonology consulted. (3) COPD exacerbation: Code(s): J44.1 - Chronic obstructive pulmonary disease with (acute) exacerbation Status: Inactive Assessment and Plan: As above. No wheezing. On Huber-24 Continue abx, nebs and steroids. (4) Hypertension: Code(s): I10 - Essential (primary) hypertension Status: Chronic Assessment and Plan: Patient's blood pressure was reviewed on 12/02 Blood pressure remains well controlled. Will continue current medications. Plan DVT Prophylaxis: Lovenox SQ Code Status: full code Subjective Date/time seen: 12/02/24 18:14 Interval history: 74yo female with asthma, COPD, pseudomonas lung colonization, chronic hypoxic respiratory failure (2L) and bronchiectasis here for shortness of breath. SOB better. No hx of AFib. Cough productive of dull white sputum. No fever or chills. No rash. No hx of CAD. No CP. No n/v/d. No exposure to anyone to TB. Exam Narrative: AF 98.5 130/68 80 24 97% 2.5L Gen - NARD sitting up in bed Chest - inspiratory and expiratory rhonchi; nml RR. no conversatinal dyspnea CV - RRR S1/S2. Tele showing PVCs Abd - Soft, NT/ND, Positive BS Ext - No pedal edema Psych - Nml mood and affect Skin - Warm and dry Objective Data Vital Signs Vital Signs: Vital Signs - 24 hr 12/01/24 18:22 12/01/24 18:25 12/01/24 18:26 Temperature Pulse Rate 81 80 86 Respiratory Rate 20 29 H 21 H Blood Pressure 144/80 H Pulse Oximetry 95 98 Oxygen Delivery BiPAP Oxygen Flow Rate Fraction of Inspired Oxygen 12/01/24 18:39 12/01/24 19:08 12/01/24 21:35 Temperature Pulse Rate 82 88 88 Respiratory Rate 24 H 20 22 H Blood Pressure 137/68 Pulse Oximetry 99 Oxygen Delivery Oxygen Flow Rate Fraction of Inspired Oxygen 12/01/24 21:37 12/01/24 21:54 12/01/24 21:58 Temperature 98.2 F Pulse Rate 80 87 87 Respiratory Rate 31 H 24 H 29 H Blood Pressure 137/73 Pulse Oximetry 96 97 Oxygen Delivery BiPAP Oxygen Flow Rate Fraction of Inspired Oxygen 12/01/24 22:44 12/02/24 00:00 12/02/24 00:00 Temperature 97.9 F Pulse Rate 68 Respiratory Rate 36 H Blood Pressure 122/66 Pulse Oximetry 97 98 97 Oxygen Delivery BiPAP BiPAP Oxygen Flow Rate Fraction of Inspired Oxygen 32 32 12/02/24 00:00 12/02/24 00:00 12/02/24 02:00 Temperature Pulse Rate 74 74 66 Respiratory Rate 20 Blood Pressure Pulse Oximetry 98 Oxygen Delivery BiPAP Oxygen Flow Rate Fraction of Inspired Oxygen 32 12/02/24 02:08 12/02/24 02:11 12/02/24 02:20 Temperature Pulse Rate 70 70 72 Respiratory Rate 30 H 30 H 26 H Blood Pressure Pulse Oximetry 97 Oxygen Delivery BiPAP Oxygen Flow Rate Fraction of Inspired Oxygen 12/02/24 04:00 12/02/24 04:00 12/02/24 04:00 Temperature 97.9 F Pulse Rate 66 65 Respiratory Rate 17 Blood Pressure 136/68 Pulse Oximetry 100 Oxygen Delivery BiPAP Oxygen Flow Rate Fraction of Inspired Oxygen 32 12/02/24 05:30 12/02/24 05:48 12/02/24 05:49 Temperature Pulse Rate 67 67 67 Respiratory Rate 20 20 20 Blood Pressure Pulse Oximetry 100 Oxygen Delivery Nasal Cannula Oxygen Flow Rate 4 Fraction of Inspired Oxygen 40 12/02/24 07:55 12/02/24 07:57 12/02/24 08:00 Temperature 97.9 F Pulse Rate 72 69 Respiratory Rate 20 22 H Blood Pressure 145/86 H Pulse Oximetry 100 100 Oxygen Delivery Nasal Cannula Oxygen Flow Rate 4 Fraction of Inspired Oxygen 12/02/24 08:00 12/02/24 08:05 12/02/24 08:09 Temperature Pulse Rate 70 70 69 Respiratory Rate 20 Blood Pressure Pulse Oximetry Oxygen Delivery Oxygen Flow Rate Fraction of Inspired Oxygen 12/02/24 10:00 12/02/24 12:00 12/02/24 12:00 Temperature 98.2 F Pulse Rate 95 104 H Respiratory Rate 23 H Blood Pressure 110/55 L Pulse Oximetry 95 95 Oxygen Delivery Nasal Cannula Oxygen Flow Rate 2.5 Fraction of Inspired Oxygen 12/02/24 12:00 12/02/24 14:00 12/02/24 14:36 Temperature Pulse Rate 91 82 75 Respiratory Rate 20 Blood Pressure Pulse Oximetry Oxygen Delivery Oxygen Flow Rate Fraction of Inspired Oxygen 12/02/24 14:47 12/02/24 16:00 12/02/24 16:00 Temperature Pulse Rate 73 83 Respiratory Rate 20 Blood Pressure Pulse Oximetry 96 Oxygen Delivery Nasal Cannula Oxygen Flow Rate 2.5 Fraction of Inspired Oxygen 12/02/24 16:00 12/02/24 18:00 Temperature 98.5 F Pulse Rate 85 80 Respiratory Rate 24 H Blood Pressure 130/68 Pulse Oximetry 97 Oxygen Delivery Oxygen Flow Rate Fraction of Inspired Oxygen Intake/Output Intake/Output: Intake & Output 11/29/24 11/30/24 12/01/24 12/02/24 23:59 23:59 23:59 23:59 Intake Total 350 1090 Output Total 1600 Balance 350 -510 Meds/Results Medications: Active Medications Generic Name Dose Route Start Last Admin Trade Name Freq PRN Reason Stop Dose Admin Acetaminophen 650 mg 12/01/24 19:41 Acetaminophen 325 Mg Tablet PO Q6H PRN Mild Pain (1-3) or Fever Albuterol/Ipratropium 3 ml 12/01/24 20:00 12/02/24 14:36 Ipratropium 0.5 Mg/Albuterol Sulfate 2.5 Mg Ampul.Neb 3 Ml INHALATION 3 ml Q6HRT [place] Administration Benzonatate 100 mg 12/01/24 19:40 Benzonatate 100 Mg Capsule PO TID PRN Cough Clopidogrel Bisulfate 75 mg 12/02/24 09:00 12/02/24 08:06 Clopidogrel Bisulfate 75 Mg Tablet PO 75 mg DAILY [place] Administration Digoxin 125 mcg 12/02/24 09:00 12/02/24 08:09 Digoxin Tab 125 Mcg Tablet PO 125 mcg DAILY [place] Administration Enoxaparin Sodium 40 mg 12/02/24 09:00 12/02/24 08:07 Enoxaparin 40 Mg/0.4 Ml Syringe SUB-Q 40 mg DAILY [place] Administration Ergocalciferol 1,250 mcg 12/12/24 09:00 Ergocalciferol (Vitamin D2) 1,250 Mcg (50,000 Units) Capsule PO [id number] HCINA Guaifenesin 1,200 mg 12/02/24 21:00 Guaifenesin 12 Hr 600 Mg Tabcr PO Q12HR [place] Hydralazine HCl 50 mg 12/02/24 09:00 12/02/24 08:06 Hydralazine Hcl 50 Mg Tablet PO 50 mg DAILY [place] Administration Hydrochlorothiazide 25 mg 12/02/24 09:00 12/02/24 08:06 Hydrochlorothiazide 25 Mg Tablet PO 25 mg DAILY [place] Administration Levofloxacin/Dextrose 750 mg in 150 mls @ 100 mls/hr 12/02/24 00:00 12/02/24 00:56 Levaquin 750 Mg/D5w 150 Ml IVPB 100 mls/hr Q48H [place] Administration Meropenem 1 gm/ Sodium 100 mls @ 200 mls/hr 12/02/24 18:00 12/02/24 17:08 Chloride IVPB 200 mls/hr Q12H [place] Administration Isosorbide Mononitrate 30 mg 12/02/24 09:00 12/02/24 08:05 Isosorbide Mononitrate 30 Mg Tab.Er.24h PO 30 mg DAILY [place] Administration Methylprednisolone Sodium Succinate 20 mg 12/02/24 18:00 12/02/24 17:04 Methylprednisolone Sod Succ 40 Mg Vial IV PUSH 20 mg Q6HR [place] Administration Montelukast Sodium 10 mg 12/01/24 23:15 12/02/24 00:55 Montelukast Sodium 10 Mg Tablet PO 10 mg QHS [place] Administration Huber-24 Er 400mg 1 each 12/02/24 09:00 12/02/24 16:53 Capsule *Use Home BY MOUTH 01/01/25 08:59 1 each Supply* DAILY [place] Administration Pantoprazole Sodium 40 mg 12/02/24 09:00 12/02/24 08:06 Pantoprazole 40 Mg Tablet PO 40 mg Q12HR [place] Administration Prochlorperazine Edisylate 10 mg 12/01/24 19:41 Prochlorperazine Edisylate 10 Mg/2 Ml Vial IV PUSH Q6H PRN Nausea And Vomiting Rosuvastatin Calcium 40 mg 12/02/24 09:00 12/02/24 08:06 Rosuvastatin 20 Mg Tablet PO 40 mg DAILY [place] Administration Sodium Chloride 6 ml 12/02/24 05:00 12/02/24 05:32 Sodium Chlor 3% 15 Ml Neb (Respiratory Therapy) INHALATION 12/04/24 05:01 6 ml DAILY@0500 [facility] Administration Sodium Chloride 6 ml 12/03/24 05:00 Sodium Chlor 3% 15 Ml Neb (Respiratory Therapy) INHALATION 12/05/24 05:01 DAILY@0500 [facility] Radiology Results: ITS Impressions Chest X-Ray 12/01/24 18:29 IMPRESSION: Reticulonodular right lower lung opacities may represent infection, including atypical variants, overlying chronic emphysematous/interstitial changes. Possible 1.3 cm right lower lung pulmonary nodule, versus nodular appearing consolidation from infection. Recommend nonemergent but timely low-dose noncontrast CT of the chest for further evaluation. Chest CT 12/01/24 22:09 IMPRESSION: Diffuse tree-in-bud opacities with severe bronchiectasis, concerning for atypical infection, including but not limited to: tuberculosis, MAC, fungal infection, and bacterial bronchopneumonia. Chronic aspiration considered less likely given the distribution. Mild cardiomegaly. Trace pericardial effusion. Results reported telephonically to Debbie Mac RN by Dr. Willson at 10:29 PM on 12/01/2024. Labs Labs: Laboratory Results - last 24 hr 12/01/24 12/01/24 12/02/24 17:52 20:10 03:31 WBC 17.1 H RBC 4.15 L Hgb 11.3 L Hct 36.2 L MCV 87.2 MCH 27.2 MCHC 31.2 L RDW 14.4 Plt Count 373 MPV 9.5 Immature Gran % (Auto) 0.7 H Neut % (Auto) 96.2 H Lymph % (Auto) 2.5 L [place] % (Auto) 0.5 L Eos % (Auto) 0.0 Baso % (Auto) 0.1 L Lymph # (Auto) 0.43 L [place] # (Auto) 0.1 Eos # (Auto) 0.0 Baso # (Auto) 0.0 Abs Immat Gran (auto) 0.12 H Absolute Neuts (auto) 16.5 H Absolute Nucleated RBC 0.000 Nucleated RBC % 0.0 Sodium 139 Potassium 3.4 Chloride 97 L Carbon Dioxide 31 H Anion Gap 11 BUN 22 H Creatinine 0.96 Estim Creat Clear Calc 35 Estimated GFR 57 L Glucose 177 H Lactic Acid 0.8 Calcium 9.3 Magnesium 1.9 Total Bilirubin 0.2 AST 31 ALT 23 Alkaline Phosphatase 61 NT-Pro-B Natriuret Pep 424 H Total Protein 6.7 Albumin 3.8 Nasal MRSA (PCR) Not detected Influenza A (RT-PCR) Negative Influenza B (RT-PCR) Negative RSV (RT-PCR) Negative SARS-CoV-2 RNA (RT-PCR) Negative
[2024-12-02] MEDS: guaiFENesin 12 HR 600 MG TABCR 1200 MG PO (20:53)
[2024-12-03] VITALS (29 sets, daily range): BP systolic 118–148; BP diastolic 53–68; PULSE 58–102; RESP 18–25; TEMP 36.4–36.9; O2SAT 92–100
[2024-12-03] MEDS: IPRATROPIUM 0.5 MG/ALBUTEROL SULFATE 2.5 MG AMPUL.NEB 3 ML INHALATION ×4 (02:14→19:53)
[2024-12-03] MEDS: MEROPENEM 1 GM in SODIUM CHLORIDE 0.9% IV 100 ML 200 ML IVPB ×2 (05:23→18:20)
[2024-12-03 06:19] LABS: Hematocrit 34.3 % (37.0-47.0); Hemoglobin 10.5 g/dL (12.0-15.0); Immature Granulocyte Percent A 0.9 % (0-0.5); Lymphocytes Absolute Auto 0.77 K/mm3 (0.9-3.2); Mean Corpuscular HGB Conc 30.6 g/dl (32-36); Mean Corpuscular Hemoglobin 27.0 pg (26-34); Mean Corpuscular Volume 88.2 fl (80-100); Nucleated Red Blood Cells Absolute Auto 0.000 K/mm3 (0.0-0.012); Nucleated Red Blood Cells Perc 0.0 % (0.0-0.2); Platelet Count Result 362 k/mm3 (150-375); Red Blood Count 3.89 M/mm3 (4.2-5.4); White Blood Count 19.6 K/mm3 (4.5-10.0)
[2024-12-03 06:41] LABS: Albumin Level 3.4 g/dL (3.5-5.1); Anion Gap 6 mmol/L (4-12); Blood Urea Nitrogen 31 mg/dL (7-17); Calcium 9.7 mg/dL (8.4-10.2); Carbon Dioxide 36 mmol/L (22-30); Chloride 97 mmol/L (98-107); Estimated CRCL calculation 36 ml/min; Estimated Glomerular Filt Rate 59; Glucose 169 mg/dL (65-110); Magnesium 2.1 mg/dL (1.6-2.3); Potassium 3.2 mmol/L (3.4-5.0); Sodium 139 mmol/L (137-145)
[2024-12-03 06:49] LABS: Immunoglobulin A 108 mg/dL (70-400); Immunoglobulin G 673 mg/dL (700-1600); Immunoglobulin M 86 mg/dL (40-230)
[2024-12-03] MEDS: SODIUM CHLOR 3% 15 ML NEB (RESPIRATORY THERAPY) 6 ML INHALATION (07:02)
[2024-12-03 08:20] LABS: Procalcitonin 0.1 ng/mL
[2024-12-03] MEDS: ISOSORBIDE MONONITRATE 30 MG TAB.ER.24H PO (09:30)
[2024-12-03] MEDS: ROSUVASTATIN 20 MG TABLET 40 MG PO (09:30)
[2024-12-03] MEDS: ENOXAPARIN 40 MG/0.4 ML SYRINGE SUB-Q (09:30)
[2024-12-03] MEDS: DIGOXIN TAB 125 MCG TABLET PO (09:30)
[2024-12-03] MEDS: guaiFENesin 12 HR 600 MG TABCR 1200 MG PO ×2 (09:30→20:36)
[2024-12-03] MEDS: POTASSIUM CHLORIDE 20 MEQ ER TABLET PO ×2 (09:31→18:19)
[2024-12-03] MEDS: THEOPHYLLINE 400 MG 1 EACH BY MOUTH (09:31)
[2024-12-03] MEDS: PANTOPRAZOLE 40 MG TABLET PO ×2 (09:31→20:36)
[2024-12-03] MEDS: CLOPIDOGREL BISULFATE 75 MG TABLET PO (09:31)
--- NOTE | 2024-12-03 10:44 | P.PNPL_ITS ---
Progress Note: A&P Assessment and Plan (1) Bronchiectasis: Code(s): J47.9 - Bronchiectasis, uncomplicated Status: Acute Assessment and Plan: Regarding her bronchiectasis patient Was admitted to the hospital with what sounds like hypercarbic respiratory failure 2 years ago. She was treated with BiPAP and told she had bronchiectasis and discharged on home noninvasive ventilator. As an outpatient she saw a project engineering director at [facility] after this and was told she had bronchiectasis. She is unsure if she had a complete workup but apparently they had a case conference with multiple subspecialists there. At baseline she is on theophylline 400 today, trelegy 100, , azithromycin 500 3 times a week, vest therapy twice a day, Dupixent injection every 2 weeks. 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 Patient's last prednisone use was 18 months ago. At baseline the patient says she can walk around her house but then has respiratory limitations. She uses no oxygen at rest, 2 L with activity and 2 L bleed in at night. She is a never smoker and never exposed to secondhand smoke. Her father of respiratory issues at age 45 and thinks he had the same condition as her. currently the patient has 4 week continued respiratory deterioration with increased cough, increased phlegm production and change in phlegm production with no fever or hemoptysis. She presents with a leukocytosis and a CT scan with bronchiectasis and tree-in-bud infiltrates throughout. COVID influenza and RSV RT PCR negative, MRSA negative. She has no hypercarbic respiratory failure. Etiology of current clinical deterioration includes: Flare of bronchiectasis, pneumonia, bronchitis, Asthma exacerbation. plan: Improved with antibiotics, bronchodilators and steroids. Will continue Levaquin and meropenem day 1 of both, she received 1 day of ceftriaxone and azithromycin on 12/01, so day 2 total antibiotics. Sputum for bacterial culture is pending. I will send a respiratory pathogen panel. I will send serologies looking for an autoimmune disease process, immunodeficiency as an etiology to the patient's bronchiectasis. I will send total IgG, IgM, IgA, IgE, IgG subclass, Aspergillus IgG, Aspergillus IgE, EROS screen and rheumatoid factor. I will check an alpha 1 anti trypsin. I will send sputum for AFB q.a.m. x3 looking for atypical mycobacterium. I am not concerned about mycobacterium tuberculosis and from my perspective can discontinue respiratory isolation. QuantiFERON gold is pending. I will decrease her Solu-Medrol to 20 mg IV q.6 hours. Continue DuoNebs q.6 hours, increase guaifenesin to 1200 mg p.o. b.i.d., I will continue her theophylline 400 mg q.day and will give her her home dose. 12/03/24: Patient says she is feeling much better than when she was admitted and slept better last night. Overall she feels she is about 80% back to her normal. Her phlegm production has decreased. When I enter the room she was on 2 L nasal. I placed her to room air and her saturations were 93%. Her white blood cell count is 19.6, creatinine is 0.92, her procalcitonin is 0.1. Sputum Gram stain with Gram-positive cocci. Serologies: Rheumatoid factor 19.4. IgA level 108, IgM level 86. All others pending. Plan: patient with wheezes today. I will continue Solu-Medrol 20 IV q.6, I will continue Levaquin and meropenem, both day 2 for bacterial infection. I will continue DuoNebs q.6, guaifenesin 1200 p.o. b.i.d., vest therapy, Cornet flutter valve treatment to help sputum expectoration. Will continue theophylline 400, theophylline level drawn today.. sputum with Gram- positive cocci with many white blood cells. Sputum for AFB x3 pending. Legionella urine antigen, pneumococcal urine antigen, mycoplasma IgM and r espiratory pathogen panel pending. Discussed with Dr. Malhotra will follow with you. (2) Acute on chronic respiratory failure with hypoxia and hypercapnia: Code(s): J96.21 - Acute and chronic respiratory failure with hypoxia; J96.22 - Acute and chronic respiratory failure with hypercapnia Status: Acute Assessment and Plan: Patient tells me she has a history of hypercarbic respiratory failure and requires BiPAP through [facility] with 2 L bleed in at night. Patient tells me she wore hospital BiPAP rate of 14 pressures 12/6, rise of 1, inspiratory time 1.0, 32% FiO2 and that the air delivery felt fine but the mask was more uncomfortable. Plan: I will continue her current hospital settings as above with 2 L bleed in. I will obtain a download from [employer]. I recommended the patient bring in her home machine with an over the mouth under the nose mask that is more comfortable for her. 12/03/24: Patient wore the hospital noninvasive ventilator with BiPAP rate of 14 pressures 12/6 and 40% and said she slept well. I have obtained a download from [employer] From 07/09/2024 through 09/15/2024 and the patient is on TTV-VAPS- AE rate is auto, tidal volume 450, EPAP minimum 6, EPAP maximum 15, pressure support 4, pressure support maximum 25, speed of 3, with 2 L bleed in. Uses days 07/18/2029, usage average 3 hours and 28 minutes. Median respiratory rate 21, median tidal volume 450. Median EPAP 6, median IPAP 12.5, median minute ventilation 8.1. Median leak 12.5. I interpret this download as poor compliance, adequate pressures and low leak. Plan: to better match her home settings I have placed the patient on AVAPS rate of 14, tidal volume 450, EPAP 6, minimal inspiratory pressure 7, maximal inspiratory pressure 25, inspiratory time 1.0, rise of 5 which is are slowest and 28% FiO2. I will obtain an overnight oximetry and an ABG prior to removal on these settings. I recommended the patient bring in her home machine so that we can use this while she is in the hospital. Subjective Date/time seen: 12/03/24 10:44 Interval history: 12/02/2024: This is a new pulmonary consult for COPD 74-year-old with a history of asthma, bronchiectasis with chronic hypoxemic and hypercarbic respiratory failure on supplemental oxygen and noninvasive ventilation at night. regarding patient's asthma she was diagnosed as a young child and remembers having asthma all her life. She has been on inhaled medicines all her life. she has been on Dupixent for about 1 and half years and does not know if this is for her asthma. Regarding her bronchiectasis patient Patient was diagnosed at least 5 [address] scan. She was admitted to the hospital with what sounds like hypercarbic respiratory failure 2 years ago. She was treated with BiPAP and told she had bronchiectasis and discharged on home noninvasive ventilator. As an outpatient she saw a project engineering director at [facility] after this and was told she had bronchiectasis. She is unsure if she had a complete workup but apparently they had a case conference with multiple subspecialists there. The patient tells me she is chronically colonized with Pseudomonas. She is not familiar with the term Aspergillus or ABPA. At baseline she is on theophylline 400 today, trelegy 100, , azithromycin 500 3 times a week, vest therapy twice a day, Dupixent injection every 2 weeks. Patient's last prednisone use was 18 months ago. At baseline the patient says she can walk around her house but then has respiratory limitations. She uses no oxygen at rest, 2 L with activity and 2 L bleed in at night. She is a never smoker and never exposed to secondhand smoke. Her father of respiratory issues at age 45 and thinks he had the same condition as her. she has 11 siblings none of them have this respiratory condition. She has 2 children, and one is a 60 YO daughter and she has the same breathing condition but is not sure if she has bronchiectasis. this daughter has 2 healthy children. Approximately 1 month ago the patient was fatigued, had worsening shortness of breath and increased phlegm and was given a course of Levaquin and Solu-Medrol by her PCP. Patient showed no improvement and about 2 weeks ago was prescribed another dose of Medrol and Levaquin. Patient states for the last month she has been run down taking care of her who has had a stroke. For 1 month she has had worsening cough, increased phlegm production the phlegm has changed and is times as pudding consistency and very slimy. It is yellow in color with no blood. She denies fever, chills, rigors. She denies chronic weight loss. Patient was seen at urgent care on 12/01/24 and then in the emergency department with a blood pressure of 153/90, heart rate 78, respiratory is 20, on 3 L nasal cannula saturation 98%. She was labored, had decreased breath sounds and wheezes. Her white blood cell count was 18.7 with 0.2% eosinophils, creatinine 1.17, BNP 424, COVID, influenza, RSV RT PCR assay negative, MRSA swab negative, ABG on 3 L nasal cannula 7.47/48/54. CT scan of the chest showed diffuse panlobular cylindrical bronchiectasis with bilateral diffuse tree-in-bud infiltrates. There were no consolidations, no pleural disease, no bullous emphysema, no interstitial lung disease. Patient was initiated on Solu-Medrol, bronchodilators, ceftriaxone and azithromycin. Ceftriaxone and azithromycin were changed to Levaquin and meropenem. 12/02/2024: Patient says she is feeling better. She says that her cough and phlegm production her 80% back to her normal. She was placed on BiPAP last night and said that the air delivery felt the same but the mask was more comfortable than her home mask. She is afebrile. Currently she is on 2.5 L nasal cannula saturations 94-95%. White blood cell count 17.1, creatinine 0.96. 12/03/24: Patient says she is feeling much better than when she was admitted and slept better last night. Overall she feels she is about 80% back to her normal. Her phlegm production has decreased. When I enter the room she was on 2 L nasal. I placed her to room air and her saturations were 93%. Her white blood cell count is 19.6, creatinine is 0.92, her procalcitonin is 0.1. Sputum Gram stain with Gram-positive cocci. Patient wore the hospital noninvasive ventilator with BiPAP rate of 14 pressures 12/6 and 40% and said she slept well. I have obtained a download from [employer] From 07/09/2024 through 09/15/2024 and the patient is on TTV-VAPS- AE rate is auto, tidal volume 450, EPAP minimum 6, EPAP maximum 15, pressure support 4, pressure support maximum 25, speed of 3, with 2 L bleed in. Uses days 07/18/2029, usage average 3 hours and 28 minutes. Median respiratory rate 21, median tidal volume 450. Median EPAP 6, median IPAP 12.5, median minute ventilation 8.1. Median leak 12.5. I interpret this download as poor compliance, adequate pressures and low leak. DATA: 12/01/24: EXAMINATION: CT diagnostic chest wo con INDICATION: nodule vs infection COMPARISON: X-ray chest, same date. FINDINGS: CHEST: Thoracic aorta: Borderline ectasia of the ascending aorta measuring up to 3.9 cm. Moderate atherosclerotic calcifications. Visualization of the aortic wall as can be seen with anemia. Lung parenchyma and airways: Significant biapical pleural scarring. Tree-in-bud opacities in all lung lobes. Widespread cystic and cylindrical bronchiectasis. Several areas of the cystic bronchiectasis contain fluid or aerated secretions. Thoracic inlet, axillae and chest wall: No thyroid or soft tissue mass. No axillary lymphadenopathy. Mediastinum: Dilated central pulmonary arteries as can be seen with pulmonary hypertension. Large hiatal hernia containing approximately one half of the stomach. Heart and pericardium: Mild cardiomegaly. Aortic valve and mitral calcifications Trace pericardial fluid. Coronary artery calcifications: Mild. Pleura: Fat-containing right posterior diaphragmatic hernia. Upper abdomen: No significant finding. Thoracic bones: No acute osseous finding in the chest. IMPRESSION: Diffuse tree-in-bud opacities with severe bronchiectasis, concerning for atypical infection, including but not limited to: tuberculosis, MAC, fungal infection, and bacterial bronchopneumonia. Chronic aspiration considered less likely given the distribution. Mild cardiomegaly. Trace pericardial effusion. Results reported telephonically to Debbie Mac RN by Dr. Willson at 10:29 PM on 12/01/2024. Review of Systems Constitutional: Constitutional: Reports no additional constitutional complaints Eyes: Eyes: Reports no additional eye complaints ENT: Reports system reviewed and no additional complaints, except as documented Cardiovascular: Cardiovascular: Reports no additional cardiovascular complaints Respiratory: Respiratory: Reports no additional respiratory complaints Gastrointestinal: Gastrointestinal: Reports no additional gastrointestinal complaints Musculoskeletal: Musculoskeletal: Reports no additional musculoskeletal complaints Neurologic: Reports system reviewed and no additional complaints, except as documented Psychiatric: Psychiatric: Reports no additional psychiatric complaints Endocrine: Endocrine: Reports no additional endocrine complaints Hematologic/Lymphatic: Hematologic/Lymphatic: Reports no additional hematologic/lymphatic complaints Allergic/Immunologic: Allergic/Immunologic: Reports no additional allergic/immunologic complaints Exam Narrative: Comfortable Const: General: cooperative, healthy appearing and comfortable Orientation/consciousness: oriented to person, oriented to place and oriented to time HENMT: Head: normal to inspection Ears: hearing grossly normal bilaterally Eyes: General: appearance normal, both eyes and all related structures Neck: Neck: normal visual inspection Chest: Chest palpation & inspection: normal inspection of the chest Resp: Effort & Inspection: normal respiratory effort and able to speak in complete sentences Auscultation: crackles, no rales, no rhonchi, wheezes and lung sounds not diminished Other: patient with inspiratory squeaks and crackles. Expiratory wheezes today Cardio: Jugular venous distension: no JVD GI: Inspection: normal to inspection Skin: General skin exam: normal color Neuro: General: oriented to person, oriented to place and oriented to time Extrem: General: normal to inspection Psych: Appearance: grossly normal Objective Data Vital Signs Vital Signs: Vital Signs - 24 hr 12/02/24 12:00 12/02/24 12:00 12/02/24 12:00 Temperature 36.8 C Pulse Rate 104 H 91 Respiratory Rate 23 H Blood Pressure 110/55 L Pulse Oximetry 95 95 Oxygen Delivery Nasal Cannula Oxygen Flow Rate 2.5 Fraction of Inspired Oxygen 12/02/24 14:00 12/02/24 14:36 12/02/24 14:47 Temperature Pulse Rate 82 75 73 Respiratory Rate 20 20 Blood Pressure Pulse Oximetry Oxygen Delivery Oxygen Flow Rate Fraction of Inspired Oxygen 12/02/24 16:00 12/02/24 16:00 12/02/24 16:00 Temperature 36.9 C Pulse Rate 83 85 Respiratory Rate 24 H Blood Pressure 130/68 Pulse Oximetry 96 97 Oxygen Delivery Nasal Cannula Oxygen Flow Rate 2.5 Fraction of Inspired Oxygen 12/02/24 18:00 12/02/24 18:17 12/02/24 19:36 Temperature 36.5 C 36.6 C Pulse Rate 80 73 78 Respiratory Rate 18 18 Blood Pressure 144/57 H 144/71 H Pulse Oximetry 98 99 Oxygen Delivery Oxygen Flow Rate Fraction of Inspired Oxygen 12/02/24 20:00 12/02/24 20:00 12/02/24 20:23 Temperature Pulse Rate 66 67 Respiratory Rate 18 Blood Pressure Pulse Oximetry 100 Oxygen Delivery Nasal Cannula Oxygen Flow Rate 2.5 Fraction of Inspired Oxygen 12/02/24 20:26 12/02/24 20:40 12/02/24 22:00 Temperature Pulse Rate 67 67 69 Respiratory Rate 18 18 Blood Pressure Pulse Oximetry 100 Oxygen Delivery Nasal Cannula Oxygen Flow Rate 4 Fraction of Inspired Oxygen 40 12/03/24 00:00 12/03/24 00:00 12/03/24 00:20 Temperature 36.6 C Pulse Rate 63 59 L Respiratory Rate 18 Blood Pressure 148/68 H Pulse Oximetry 98 98 Oxygen Delivery Nasal Cannula Oxygen Flow Rate 2.5 Fraction of Inspired Oxygen 12/03/24 02:00 12/03/24 02:17 12/03/24 02:32 Temperature Pulse Rate 58 L 67 67 Respiratory Rate 18 18 Blood Pressure Pulse Oximetry Oxygen Delivery Oxygen Flow Rate Fraction of Inspired Oxygen 12/03/24 04:00 12/03/24 04:00 12/03/24 05:23 Temperature 36.4 C Pulse Rate 78 62 Respiratory Rate 24 H Blood Pressure 136/59 L Pulse Oximetry 100 100 Oxygen Delivery BiPAP Oxygen Flow Rate Fraction of Inspired Oxygen 40 12/03/24 06:00 12/03/24 06:45 12/03/24 08:01 Temperature 36.7 C Pulse Rate 72 67 67 Respiratory Rate 18 20 Blood Pressure 139/61 Pulse Oximetry 98 Oxygen Delivery Oxygen Flow Rate Fraction of Inspired Oxygen 12/03/24 08:42 12/03/24 08:42 12/03/24 08:52 Temperature Pulse Rate 70 69 Respiratory Rate 18 18 Blood Pressure Pulse Oximetry 93 Oxygen Delivery Room Air Oxygen Flow Rate Fraction of Inspired Oxygen 12/03/24 09:30 Temperature Pulse Rate 95 Respiratory Rate Blood Pressure Pulse Oximetry Oxygen Delivery Oxygen Flow Rate Fraction of Inspired Oxygen Intake/Output Intake/Output: Intake & Output 11/30/24 12/01/24 12/02/24 12/03/24 23:59 23:59 23:59 23:59 Intake Total 350 1190 710 Output Total 1600 750 Balance 350 -410 -40 Meds/Results Medications: Active Medications Generic Name Dose Route Start Last Admin Trade Name Freq PRN Reason Stop Dose Admin Acetaminophen 650 mg 12/01/24 19:41 Acetaminophen 325 Mg Tablet PO Q6H PRN Mild Pain (1-3) or Fever Albuterol/Ipratropium 3 ml 12/01/24 20:00 12/03/24 08:36 Ipratropium 0.5 Mg/Albuterol Sulfate 2.5 Mg Ampul.Neb 3 Ml INHALATION 3 ml Q6HRT [place] Administration Benzonatate 100 mg 12/01/24 19:40 Benzonatate 100 Mg Capsule PO TID PRN Cough Clopidogrel Bisulfate 75 mg 12/02/24 09:00 12/03/24 09:31 Clopidogrel Bisulfate 75 Mg Tablet PO 75 mg DAILY [place] Administration Digoxin 125 mcg 12/02/24 09:00 12/03/24 09:30 Digoxin Tab 125 Mcg Tablet PO 125 mcg DAILY [place] Administration Enoxaparin Sodium 40 mg 12/02/24 09:00 12/03/24 09:30 Enoxaparin 40 Mg/0.4 Ml Syringe SUB-Q 40 mg DAILY [place] Administration Ergocalciferol 1,250 mcg 12/12/24 09:00 Ergocalciferol (Vitamin D2) 1,250 Mcg (50,000 Units) Capsule PO [id number] [place] Guaifenesin 1,200 mg 12/02/24 21:00 12/03/24 09:30 Guaifenesin 12 Hr 600 Mg Tabcr PO 1,200 mg Q12HR [place] Administration Hydralazine HCl 50 mg 12/02/24 09:00 12/03/24 09:31 Hydralazine Hcl 50 Mg Tablet PO 50 mg DAILY [place] Administration Hydrochlorothiazide 25 mg 12/02/24 09:00 12/03/24 09:30 Hydrochlorothiazide 25 Mg Tablet PO 25 mg DAILY [place] Administration Levofloxacin/Dextrose 750 mg in 150 mls @ 100 mls/hr 12/02/24 00:00 12/02/24 00:56 Levaquin 750 Mg/D5w 150 Ml IVPB 100 mls/hr Q48H [place] Administration Meropenem 1 gm/ Sodium 100 mls @ 200 mls/hr 12/02/24 18:00 12/03/24 05:23 Chloride IVPB 200 mls/hr Q12H [place] Administration Isosorbide Mononitrate 30 mg 12/02/24 09:00 12/03/24 09:30 Isosorbide Mononitrate 30 Mg Tab.Er.24h PO 30 mg DAILY [place] Administration Methylprednisolone Sodium Succinate 20 mg 12/02/24 18:00 12/03/24 05:23 Methylprednisolone Sod Succ 40 Mg Vial IV PUSH 20 mg Q6HR [place] Administration Montelukast Sodium 10 mg 12/01/24 23:15 12/02/24 20:53 Montelukast Sodium 10 Mg Tablet PO 10 mg QHS [place] Administration Huber-24 Er 400mg 1 each 12/02/24 09:00 12/03/24 09:31 Capsule *Use Home BY MOUTH 01/01/25 08:59 1 each Supply* DAILY [place] Administration Pantoprazole Sodium 40 mg 12/02/24 09:00 12/03/24 09:31 Pantoprazole 40 Mg Tablet PO 40 mg Q12HR [place] Administration Prochlorperazine Edisylate 10 mg 12/01/24 19:41 Prochlorperazine Edisylate 10 Mg/2 Ml Vial IV PUSH Q6H PRN Nausea And Vomiting Rosuvastatin Calcium 40 mg 12/02/24 09:00 12/03/24 09:30 Rosuvastatin 20 Mg Tablet PO 40 mg DAILY [place] Administration Sodium Chloride 6 ml 12/02/24 05:00 12/03/24 07:02 Sodium Chlor 3% 15 Ml Neb (Respiratory Therapy) INHALATION 12/04/24 05:01 6 ml DAILY@0500 [facility] Administration Sodium Chloride 6 ml 12/03/24 05:00 12/03/24 08:26 Sodium Chlor 3% 15 Ml Neb (Respiratory Therapy) INHALATION 12/05/24 05:01 Not Given DAILY@0500 [facility] Radiology Results: ITS Impressions Chest X-Ray 12/01/24 18:29 IMPRESSION: Reticulonodular right lower lung opacities may represent infection, including atypical variants, overlying chronic emphysematous/interstitial changes. Possible 1.3 cm right lower lung pulmonary nodule, versus nodular appearing c onsolidation from infection. Recommend nonemergent but timely low-dose noncontrast CT of the chest for further evaluation. Chest CT 12/01/24 22:09 IMPRESSION: Diffuse tree-in-bud opacities with severe bronchiectasis, concerning for atypical infection, including but not limited to: tuberculosis, MAC, fungal infection, and bacterial bronchopneumonia. Chronic aspiration considered less likely given the distribution. Mild cardiomegaly. Trace pericardial effusion. Results reported telephonically to Debbie Mac RN by Dr. Willson at 10:29 PM on 12/01/2024. Labs Labs: Laboratory Results - last 24 hr 12/03/24 12/03/24 06:06 06:07 WBC 19.6 H RBC 3.89 L Hgb 10.5 L Hct 34.3 L MCV 88.2 MCH 27.0 MCHC 30.6 L RDW 14.9 H Plt Count 362 MPV 9.6 Immature Gran % (Auto) 0.9 H Neut % (Auto) 89.2 H Lymph % (Auto) 3.9 L Osborne % (Auto) 5.9 Eos % (Auto) 0.0 Baso % (Auto) 0.1 L Lymph # (Auto) 0.77 L Osborne # (Auto) 1.2 H Eos # (Auto) 0.0 Baso # (Auto) 0.0 Abs Immat Gran (auto) 0.18 H Absolute Neuts (auto) 17.5 H Absolute Nucleated RBC 0.000 Nucleated RBC % 0.0 Sodium 139 Potassium 3.2 L Chloride 97 L Carbon Dioxide 36 H Anion Gap 6 BUN 31 H Creatinine 0.92 Estim Creat Clear Calc 36 Estimated GFR 59 Glucose 169 H Calcium 9.7 Phosphorus 2.9 Magnesium 2.1 Albumin 3.4 L Procalcitonin 0.1 IgG 673 L IgA 108 IgM 86 Rheumatoid Factor 19.4 Rheumatoid Factor Scrn Cancelled Rheumatoid Factor Titer Cancelled
--- NOTE | 2024-12-03 17:03 | PM.IMPN ---
Progress Note: A&P Assessment and Plan (1) Acute on chronic respiratory failure with hypoxia and hypercapnia: Code(s): J96.21 - Acute and chronic respiratory failure with hypoxia; J96.22 - Acute and chronic respiratory failure with hypercapnia Status: Acute Assessment and Plan: Patient presents with SOB. ABG - 7.46/48/54 on 3L CXR concerning for infection and possible pulmonary nodule CT chest without contrast showing diffuse tree-in-bud opacities with severe bronchiectasis, concerning for atypical infection, mild cardiomegaly and trace pericardial effusion. Acute on chronic respiratory failure secondary to COPD exacerbation and atypical pneumonia with underlying bronchiectasis. Started on steroids, bronchodilators and abx. Pulmonary consulted and appreciate their input. Able to come off bipap. Able to wean down on oxygen Continue bipap as needed. Wean O2 as toelrated (2) CAP (community acquired pneumonia): Qualifiers: Laterality: right Lung location: lower lobe of lung Qualified Code(s): J18.9 - Pneumonia, unspecified organism Code(s): J18.9 - Pneumonia, unspecified organism Status: Acute Assessment and Plan: Imaging as above. She did not meet SIRS criteria. She failed 2 course of Levaquin prior to admission. Started on ceftriaxone and azithromycin in the ED but changed to cefepime, azithromycin, and vancomycin then changed to Meropenem for pseudomonal coverage MRSA nasal swab negative so Vancomycin discontinued. Azithro stopped and Levaquin added for atypical coverage COVID, RSV and influenza PCR negative. Respiratory viral panel ordered. BCx NGTD Sputum culture growing gram positive cocci AFB Sputum negative to date. Mycoplasma, Legionella Ag, pneumococcal Ag ordered Aspergillus testing and testing for connective tissue disease sent Supportive care: Mucinex, Tylenol, Tessalon Perles, DuoNebs WBC higher but felt related to steroids. Continue Levaquin and Meropenem. Pulmonology following (3) COPD exacerbation: Code(s): J44.1 - Chronic obstructive pulmonary disease with (acute) exacerbation Status: Inactive Assessment and Plan: As above. Having some wheezing. On Huber-24 and level pending Remains on Solu-Medrol. Continue abx, nebs and steroids. Wean O2 as toelrated (4) Hypertension: Code(s): I10 - Essential (primary) hypertension Status: Chronic Assessment and Plan: Patient's blood pressure was reviewed on 12/03 Blood pressure remains well controlled. Will continue to monitor (5) Bronchiectasis: Code(s): J47.9 - Bronchiectasis, uncomplicated Status: Acute Assessment and Plan: Patient with bronchiectasis and has has asthma since childhood. RF mildly elevated at 19. IgG slightly low at 670. The remainder of the workup pending. Followup on results Plan DVT Prophylaxis: Lovenox SQ Code Status: full code Subjective Date/time seen: 12/03/24 17:03 Interval history: 74yo female with asthma, COPD, pseudomonas lung colonization, chronic hypoxic respiratory failure (2L) and bronchiectasis here for shortness of breath. Cough productive of yellow-white sputum. SOB better. SLept poorly. Exam Narrative: AF 98.2 118/56 90 21 97% 2L Gen - NARD sitting up in bed Chest - scattered inspir and expir rhonchi with expir wheezes CV - RRR S1/S2. Tele showing PVCs Abd - Soft, NT/ND, Positive BS Ext - No pedal edema Psych - Nml mood and affect Skin - Warm and dry Objective Data Vital Signs Vital Signs: Vital Signs - 24 hr 12/02/24 18:00 12/02/24 18:17 12/02/24 19:36 Temperature 97.7 F 97.9 F Pulse Rate 80 73 78 Respiratory Rate 18 18 Blood Pressure 144/57 H 144/71 H Pulse Oximetry 98 99 Oxygen Delivery Oxygen Flow Rate Fraction of Inspired Oxygen 12/02/24 20:00 12/02/24 20:00 12/02/24 20:23 Temperature Pulse Rate 66 67 Respiratory Rate 18 Blood Pressure Pulse Oximetry 100 Oxygen Delivery Nasal Cannula Oxygen Flow Rate 2.5 Fraction of Inspired Oxygen 12/02/24 20:26 12/02/24 20:40 12/02/24 22:00 Temperature Pulse Rate 67 67 69 Respiratory Rate 18 18 Blood Pressure Pulse Oximetry 100 Oxygen Delivery Nasal Cannula Oxygen Flow Rate 4 Fraction of Inspired Oxygen 40 12/03/24 00:00 12/03/24 00:00 12/03/24 00:20 Temperature 97.9 F Pulse Rate 63 59 L Respiratory Rate 18 Blood Pressure 148/68 H Pulse Oximetry 98 98 Oxygen Delivery Nasal Cannula Oxygen Flow Rate 2.5 Fraction of Inspired Oxygen 12/03/24 02:00 12/03/24 02:17 12/03/24 02:32 Temperature Pulse Rate 58 L 67 67 Respiratory Rate 18 18 Blood Pressure Pulse Oximetry Oxygen Delivery Oxygen Flow Rate Fraction of Inspired Oxygen 12/03/24 04:00 12/03/24 04:00 12/03/24 05:23 Temperature 97.6 F Pulse Rate 78 62 Respiratory Rate 24 H Blood Pressure 136/59 L Pulse Oximetry 100 100 Oxygen Delivery BiPAP Oxygen Flow Rate Fraction of Inspired Oxygen 40 12/03/24 06:00 12/03/24 06:45 12/03/24 08:00 Temperature Pulse Rate 72 67 91 Respiratory Rate 18 Blood Pressure Pulse Oximetry Oxygen Delivery Oxygen Flow Rate Fraction of Inspired Oxygen 12/03/24 08:01 12/03/24 08:42 12/03/24 08:42 Temperature 98.0 F Pulse Rate 67 70 Respiratory Rate 20 18 Blood Pressure 139/61 Pulse Oximetry 98 93 Oxygen Delivery Room Air Oxygen Flow Rate Fraction of Inspired Oxygen 12/03/24 08:52 12/03/24 09:30 12/03/24 10:00 Temperature Pulse Rate 69 95 85 Respiratory Rate 18 Blood Pressure Pulse Oximetry Oxygen Delivery Oxygen Flow Rate Fraction of Inspired Oxygen 12/03/24 11:49 12/03/24 12:00 12/03/24 12:00 Temperature 97.7 F Pulse Rate 82 94 Respiratory Rate 18 Blood Pressure 128/58 L Pulse Oximetry 92 95 Oxygen Delivery Nasal Cannula Oxygen Flow Rate 2 Fraction of Inspired Oxygen 12/03/24 13:40 12/03/24 13:51 12/03/24 14:00 Temperature Pulse Rate 74 75 102 H Respiratory Rate 18 18 Blood Pressure Pulse Oximetry Oxygen Delivery Oxygen Flow Rate Fraction of Inspired Oxygen 12/03/24 16:16 Temperature 98.2 F Pulse Rate 90 Respiratory Rate 21 H Blood Pressure 118/56 L Pulse Oximetry 97 Oxygen Delivery Oxygen Flow Rate Fraction of Inspired Oxygen Intake/Output Intake/Output: Intake & Output 11/30/24 12/01/24 12/02/24 12/03/24 23:59 23:59 23:59 23:59 Intake Total 350 1190 950 Output Total 1600 750 Balance 350 -410 200 Meds/Results Medications: Active Medications Generic Name Dose Route Start Last Admin Trade Name Freq PRN Reason Stop Dose Admin Acetaminophen 650 mg 12/01/24 19:41 Acetaminophen 325 Mg Tablet PO Q6H PRN Mild Pain (1-3) or Fever Albuterol/Ipratropium 3 ml 12/01/24 20:00 12/03/24 13:39 Ipratropium 0.5 Mg/Albuterol Sulfate 2.5 Mg Ampul.Neb 3 Ml INHALATION 3 ml Q6HRT [place] Administration Benzonatate 100 mg 12/01/24 19:40 Benzonatate 100 Mg Capsule PO TID PRN Cough Clopidogrel Bisulfate 75 mg 12/02/24 09:00 12/03/24 09:31 Clopidogrel Bisulfate 75 Mg Tablet PO 75 mg DAILY [place] Administration Digoxin 125 mcg 12/02/24 09:00 12/03/24 09:30 Digoxin Tab 125 Mcg Tablet PO 125 mcg DAILY [place] Administration Enoxaparin Sodium 40 mg 12/02/24 09:00 12/03/24 09:30 Enoxaparin 40 Mg/0.4 Ml Syringe SUB-Q 40 mg DAILY [place] Administration Ergocalciferol 1,250 mcg 12/12/24 09:00 Ergocalciferol (Vitamin D2) 1,250 Mcg (50,000 Units) Capsule PO [id number] [place] Guaifenesin 1,200 mg 12/02/24 21:00 12/03/24 09:30 Guaifenesin 12 Hr 600 Mg Tabcr PO 1,200 mg Q12HR [place] Administration Hydralazine HCl 50 mg 12/02/24 09:00 12/03/24 09:31 Hydralazine Hcl 50 Mg Tablet PO 50 mg DAILY [place] Administration Hydrochlorothiazide 25 mg 12/02/24 09:00 12/03/24 09:30 Hydrochlorothiazide 25 Mg Tablet PO 25 mg DAILY [place] Administration Levofloxacin/Dextrose 750 mg in 150 mls @ 100 mls/hr 12/02/24 00:00 12/02/24 00:56 Levaquin 750 Mg/D5w 150 Ml IVPB 100 mls/hr Q48H [place] Administration Meropenem 1 gm/ Sodium 100 mls @ 200 mls/hr 12/02/24 18:00 12/03/24 05:23 Chloride IVPB 200 mls/hr Q12H [place] Administration Isosorbide Mononitrate 30 mg 12/02/24 09:00 12/03/24 09:30 Isosorbide Mononitrate 30 Mg Tab.Er.24h PO 30 mg DAILY [place] Administration Methylprednisolone Sodium Succinate 20 mg 12/02/24 18:00 12/03/24 11:59 Methylprednisolone Sod Succ 40 Mg Vial IV PUSH 20 mg Q6HR [place] Administration Montelukast Sodium 10 mg 12/01/24 23:15 12/02/24 20:53 Montelukast Sodium 10 Mg Tablet PO 10 mg QHS [place] Administration Huber-24 Er 400mg 1 each 12/02/24 09:00 12/03/24 09:31 Capsule *Use Home BY MOUTH 01/01/25 08:59 1 each Supply* DAILY [place] Administration Pantoprazole Sodium 40 mg 12/02/24 09:00 12/03/24 09:31 Pantoprazole 40 Mg Tablet PO 40 mg Q12HR [place] Administration Prochlorperazine Edisylate 10 mg 12/01/24 19:41 Prochlorperazine Edisylate 10 Mg/2 Ml Vial IV PUSH Q6H PRN Nausea And Vomiting Rosuvastatin Calcium 40 mg 12/02/24 09:00 12/03/24 09:30 Rosuvastatin 20 Mg Tablet PO 40 mg DAILY [place] Administration Sodium Chloride 6 ml 12/02/24 05:00 12/03/24 07:02 Sodium Chlor 3% 15 Ml Neb (Respiratory Therapy) INHALATION 12/04/24 05:01 6 ml DAILY@0500 [facility] Administration Sodium Chloride 6 ml 12/03/24 05:00 12/03/24 08:26 Sodium Chlor 3% 15 Ml Neb (Respiratory Therapy) INHALATION 12/05/24 05:01 Not Given DAILY@0500 [facility] Radiology Results: ITS Impressions Chest X-Ray 12/01/24 18:29 IMPRESSION: Reticulonodular right lower lung opacities may represent infection, including atypical variants, overlying chronic emphysematous/interstitial changes. Possible 1.3 cm right lower lung pulmonary nodule, versus nodular appearing consolidation from infection. Recommend nonemergent but timely low-dose noncontrast CT of the chest for further evaluation. Chest CT 12/01/24 22:09 IMPRESSION: Diffuse tree-in-bud opacities with severe bronchiectasis, concerning for atypical infection, including but not limited to: tuberculosis, MAC, fungal infection, and bacterial bronchopneumonia. Chronic aspiration considered less likely given the distribution. Mild cardiomegaly. Trace pericardial effusion. Results reported telephonically to Debbie Mac RN by Dr. Willson at 10:29 PM on 12/01/2024. Labs Labs: Laboratory Results - last 24 hr 12/03/24 12/03/24 12/03/24 06:06 06:07 06:07 WBC 19.6 H RBC 3.89 L Hgb 10.5 L Hct 34.3 L MCV 88.2 MCH 27.0 MCHC 30.6 L RDW 14.9 H Plt Count 362 MPV 9.6 Immature Gran % (Auto) 0.9 H Neut % (Auto) 89.2 H Lymph % (Auto) 3.9 L Ector % (Auto) 5.9 Eos % (Auto) 0.0 Baso % (Auto) 0.1 L Lymph # (Auto) 0.77 L Ector # (Auto) 1.2 H Eos # (Auto) 0.0 Baso # (Auto) 0.0 Abs Immat Gran (auto) 0.18 H Absolute Neuts (auto) 17.5 H Absolute Nucleated RBC 0.000 Nucleated RBC % 0.0 Sodium 139 Potassium 3.2 L Chloride 97 L Carbon Dioxide 36 H Anion Gap 6 BUN 31 H Creatinine 0.92 Estim Creat Clear Calc 36 Estimated GFR 59 Glucose 169 H Calcium 9.7 Phosphorus 2.9 Magnesium 2.1 Albumin 3.4 L Hoqax-[id number] Cancelled Cancelled Alpha-1-AT Phenotype Cancelled Procalcitonin 0.1 A.fumigatus Allerg IgE Cancelled A.fumigatus IgE Conv Cl Cancelled A. fumigatus Interp Cancelled Hobart Serum Ab Cancelled [place] Serum IgG Ab Cancelled Immunocap Total IgE Cancelled Theophylline Cancelled IgG 673 L IgG1 IgG2 IgG3 IgG4 IgA IgM IgE Rheumatoid Factor 19.4 Rheumatoid Factor Scrn Cancelled Rheumatoid Factor Titer Cancelled Anti-Cycl Citrul Peptide EROS Scrn Qualitative EROS [place] Interp ANCA Screen c-ANCA Titer p-ANCA Titer Atypical p-ANCA Titer VICKY-1 Antibody Anti-Vicky-1 FEIA c/o 6.9 EJ Antibody OJ Antibody Mi-2 Antibody NXP-[address]-12 Antibody Anti-IL-2 Beta Anti-MDA5 Myos P155/140 TIF1-g Ab SS-A Antibody SS-B Antibody Sm (Gavin) Antibody [employer]ER Antibody SM/V[employer] TEACHER IgG Antibody Scl-70 Antibody Anti-DNA Antibody Anti-Ribosomal Ab Chromatin Antibody Anti-SRP Antibody Centromere B Antibody Saccharo. viridis Ab T. candidus Antibody T. sacchari IgG Ab T. vulgaris Antibody T. vulgaris IgG Ab Aspergillus flavus Ab Aspergill fumigatus Ab Aspergillus fum #1 Ab A. fumigatus IgG Ab Aspergillus niger Ab A. pullulans Aller IgG Micropolyspora faeni Ab M. faeni IgG Ab 12/03/24 12/03/24 12/03/24 06:07 06:07 06:07 WBC RBC Hgb Hct MCV MCH MCHC RDW Plt Count MPV Immature Gran % (Auto) Neut % (Auto) Lymph % (Auto) Ector % (Auto) Eos % (Auto) Baso % (Auto) Lymph # (Auto) Ector # (Auto) Eos # (Auto) Baso # (Auto) Abs Immat Gran (auto) Absolute Neuts (auto) Absolute Nucleated RBC Nucleated RBC % Sodium Potassium Chloride Carbon Dioxide Anion Gap BUN Creatinine Estim Creat Clear Calc Estimated GFR Glucose Calcium Phosphorus Magnesium Albumin [id number] Alpha-1-AT Phenotype Procalcitonin A.fumigatus Allerg IgE A.fumigatus IgE Conv Cl A. fumigatus Interp Hobart Serum Ab Hobart Serum IgG Ab Immunocap Total IgE Theophylline IgG Cancelled IgG1 Cancelled IgG2 Cancelled IgG3 Cancelled IgG4 Cancelled IgA 108 IgM 86 IgE Cancelled Rheumatoid Factor Rheumatoid Factor Scrn Rheumatoid Factor Titer Anti-Cycl Citrul Peptide Cancelled EROS Scrn Qualitative Cancelled EROS [place] Interp Cancelled ANCA Screen Cancelled c-ANCA Titer Cancelled p-ANCA Titer Cancelled Atypical p-ANCA Titer Cancelled VICKY-1 Antibody Cancelled Anti-Vicky-1 FEIA c/o 6.9 Cancelled EJ Antibody Cancelled OJ Antibody Cancelled Mi-2 Antibody Cancelled NXP-[address]-12 Antibody Cancelled Anti-IL-2 Beta Cancelled Anti-MDA5 Cancelled Myos P155/140 TIF1-g Ab Cancelled SS-A Antibody Cancelled SS-B Antibody Cancelled Sm (Gavin) Antibody Cancelled [employer]ER Antibody Cancelled SM/VET[employer]ICINE TEACHER IgG Antibody Cancelled Scl-70 Antibody Cancelled Anti-DNA Antibody Cancelled Anti-Ribosomal Ab Cancelled Chromatin Antibody Cancelled Anti-SRP Antibody Cancelled Centromere B Antibody Cancelled Saccharo. viridis Ab Cancelled T. candidus Antibody Cancelled T. sacchari IgG Ab Cancelled T. vulgaris Antibody Cancelled T. vulgaris IgG Ab Cancelled Aspergillus flavus Ab Cancelled Aspergill fumigatus Ab Cancelled Aspergillus fum #1 Ab Cancelled A. fumigatus IgG Ab Cancelled Cancelled Cancelled Aspergillus niger Ab Cancelled A. pullulans Aller IgG Cancelled Micropolyspora faeni Ab Cancelled M. faeni IgG Ab Cancelled
[2024-12-03] MEDS: MONTELUKAST SODIUM 10 MG TABLET PO (20:36)
[2024-12-03 22:48] LABS: Anion Gap 7 mmol/L (4-12); Blood Urea Nitrogen 32 mg/dL (7-17); Calcium 9.5 mg/dL (8.4-10.2); Carbon Dioxide 34 mmol/L (22-30); Chloride 97 mmol/L (98-107); Estimated CRCL calculation 35 ml/min; Estimated Glomerular Filt Rate 57; Glucose 169 mg/dL (65-110); Magnesium 1.9 mg/dL (1.6-2.3); Potassium 3.4 mmol/L (3.4-5.0); Sodium 138 mmol/L (137-145)
[2024-12-03] MEDS: levoFLOXacin 750 MG/D5W 150 ML 750 MG/150 ML BAG 100 MG IVPB (23:37)
[2024-12-04] VITALS (21 sets, daily range): BP systolic 131–151; BP diastolic 57–65; PULSE 60–84; RESP 18–22; TEMP 36.8–36.9; O2SAT 94–100
[2024-12-04 04:34] LABS: Alveolar/Arterial O2 Gradient 31.1 mmHg; Fractional Inspired Oxygen 28 %; HCO3 ABG 34.4 mEq/l (22.0-26.0); Oxygen Content ABG 15.2 %vol (16.0-22.0); Oxygen Saturation ABG 98.1 % (95.0-100.0); PCO2 ABG 51.1 mmHg (35.0-45.0); PO2 ABG 108.2 mmHg (80.0-100.0); PO2 FiO2 Ratio Arterial Blood 3.86 %
[2024-12-04 04:35] LABS: Modified Allen's Test Pass; Site Drawn RIGHT RADIAL
[2024-12-04 04:36] LABS: Non-Invasive Vent Rate 14 /MIN
[2024-12-04 04:37] LABS: Non-Invasive Expiratory Pressure 6 CMH2O
[2024-12-04 05:03] LABS: Hematocrit 33.3 % (37.0-47.0); Hemoglobin 10.2 g/dL (12.0-15.0); Mean Corpuscular HGB Conc 30.6 g/dl (32-36); Mean Corpuscular Hemoglobin 27.2 pg (26-34); Mean Corpuscular Volume 88.8 fl (80-100); Platelet Count Result 363 k/mm3 (150-375); Red Blood Count 3.75 M/mm3 (4.2-5.4); White Blood Count 16.3 K/mm3 (4.5-10.0)
[2024-12-04] MEDS: MEROPENEM 1 GM in SODIUM CHLORIDE 0.9% IV 100 ML 200 ML IVPB ×2 (05:06→18:31)
[2024-12-04 05:13] LABS: Anion Gap 6 mmol/L (4-12); Blood Urea Nitrogen 30 mg/dL (7-17); Calcium 9.3 mg/dL (8.4-10.2); Carbon Dioxide 35 mmol/L (22-30); Chloride 96 mmol/L (98-107); Estimated CRCL calculation 39 ml/min; Estimated Glomerular Filt Rate > 60; Glucose 139 mg/dL (65-110); Potassium 4.0 mmol/L (3.4-5.0); Sodium 137 mmol/L (137-145)
[2024-12-04 07:08] LABS: Theophylline 11.7 ug/mL (10.0-20.0)
[2024-12-04] MEDS: IPRATROPIUM 0.5 MG/ALBUTEROL SULFATE 2.5 MG AMPUL.NEB 3 ML INHALATION ×3 (07:21→20:57)
[2024-12-04] MEDS: ENOXAPARIN 40 MG/0.4 ML SYRINGE SUB-Q (09:00)
[2024-12-04] MEDS: guaiFENesin 12 HR 600 MG TABCR 1200 MG PO ×2 (09:00→20:46)
[2024-12-04] MEDS: ROSUVASTATIN 20 MG TABLET 40 MG PO (09:00)
[2024-12-04] MEDS: CLOPIDOGREL BISULFATE 75 MG TABLET PO (09:01)
[2024-12-04] MEDS: ISOSORBIDE MONONITRATE 30 MG TAB.ER.24H PO (09:01)
[2024-12-04] MEDS: DIGOXIN TAB 125 MCG TABLET PO (09:01)
[2024-12-04] MEDS: PANTOPRAZOLE 40 MG TABLET PO ×2 (09:01→20:47)
[2024-12-04] MEDS: THEOPHYLLINE 400 MG 1 EACH BY MOUTH (09:02)
--- NOTE | 2024-12-04 09:44 | PM.PNPUL ---
Progress Note: A&P Assessment and Plan (1) Bronchiectasis: Code(s): J47.9 - Bronchiectasis, uncomplicated Status: Acute Assessment and Plan: Regarding her bronchiectasis patient Was admitted to the hospital with what sounds like hypercarbic respiratory failure 2 years ago. She was treated with BiPAP and told she had bronchiectasis and discharged on home noninvasive ventilator. As an outpatient she saw a permanent mold supervisor at [facility] after this and was told she had bronchiectasis. She is unsure if she had a complete workup but apparently they had a case conference with multiple subspecialists there. At baseline she is on theophylline 400 today, trelegy 100, , azithromycin 500 3 times a week, vest therapy twice a day, Dupixent injection every 2 weeks. 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 Patient's last prednisone use was 18 months ago. At baseline the patient says she can walk around her house but then has respiratory limitations. She uses no oxygen at rest, 2 L with activity and 2 L bleed in at night. She is a never smoker and never exposed to secondhand smoke. Her father of respiratory issues at age 45 and thinks he had the same condition as her. currently the patient has 4 week continued respiratory deterioration with increased cough, increased phlegm production and change in phlegm production with no fever or hemoptysis. She presents with a leukocytosis and a CT scan with bronchiectasis and tree-in-bud infiltrates throughout. COVID influenza and RSV RT PCR negative, MRSA negative. She has no hypercarbic respiratory failure. Etiology of current clinical deterioration includes: Flare of bronchiectasis, pneumonia, bronchitis, Asthma exacerbation. plan: Improved with antibiotics, bronchodilators and steroids. Will continue Levaquin and meropenem day 1 of both, she received 1 day of ceftriaxone and azithromycin on 12/01, so day 2 total antibiotics. Sputum for bacterial culture is pending. I will send a respiratory pathogen panel. I will send serologies looking for an autoimmune disease process, immunodeficiency as an etiology to the patient's bronchiectasis. I will send total IgG, IgM, IgA, IgE, IgG subclass, Aspergillus IgG, Aspergillus IgE, EROS screen and rheumatoid factor. I will check an alpha 1 anti trypsin. I will send sputum for AFB q.a.m. x3 looking for atypical mycobacterium. I am not concerned about mycobacterium tuberculosis and from my perspective can discontinue respiratory isolation. QuantiFERON gold is pending. I will decrease her Solu-Medrol to 20 mg IV q.6 hours. Continue DuoNebs q.6 hours, increase guaifenesin to 1200 mg p.o. b.i.d., I will continue her theophylline 400 mg q.day and will give her her home dose. 12/03/24: Patient says she is feeling much better than when she was admitted and slept better last night. Overall she feels she is about 80% back to her normal. Her phlegm production has decreased. When I enter the room she was on 2 L nasal. I placed her to room air and her saturations were 93%. Her white blood cell count is 19.6, creatinine is 0.92, her procalcitonin is 0.1. Sputum Gram stain with Gram-positive cocci. Serologies: Rheumatoid factor 19.4. IgA level 108, IgM level 86. All others pending. Plan: patient with wheezes today. I will continue Solu-Medrol 20 IV q.6, I will continue Levaquin and meropenem, both day 2 for bacterial infection. I will continue DuoNebs q.6, guaifenesin 1200 p.o. b.i.d., vest therapy, Cornet flutter valve treatment to help sputum expectoration. Will continue theophylline 400, theophylline level drawn today.. sputum with Gram-positive cocci with many white blood cells. Sputum for AFB x3 pending. Legionella urine antigen, pneumococcal urine antigen, mycoplasma IgM and respiratory pathogen panel pending. 12/04/24: Patient tells me she continues to improve. Is difficult to quantitate. She says she has 50% back to her normal. She denies any phlegm production or hemoptysis. Her cough is improved. She is afebrile. When I enter the room she was on 2 L with saturation 99%. I turned her to room air and after 8 minutes her saturations were 94%. White blood cell count 16.3, creatinine 0.86. Plan: Overall the patient is proving. She has less wheezing today. I will change her Solu-Medrol 20 mg IV q.6 hours to prednisone 40 q.day. I will continue Levaquin and meropenem, both day 3 for bacterial infection. I will continue DuoNebs q.6, guaifenesin 1200 p.o. b.i.d., vest therapy, Cornet flutter valve treatment to help sputum expectoration. Will continue theophylline 400, theophylline level 11.7, good. sputum with Gram-positive cocci with many white blood cells. Sputum for AFB x2 in lab and pending. Legionella urine antigen, pneumococcal urine antigen, mycoplasma IgM and respiratory pathogen panel pending. Discussed with Dr. Malhotra will follow with you. (2) Acute on chronic respiratory failure with hypoxia and hypercapnia: Code(s): J96.21 - Acute and chronic respiratory failure with hypoxia; J96.22 - Acute and chronic respiratory failure with hypercapnia Status: Acute Assessment and Plan: Patient tells me she has a history of hypercarbic respiratory failure and requires BiPAP through [facility] with 2 L bleed in at night. Patient tells me she wore hospital BiPAP rate of 14 pressures 12/6, rise of 1, inspiratory time 1.0, 32% FiO2 and that the air delivery felt fine but the mask was more uncomfortable. Plan: I will continue her current hospital settings as above with 2 L bleed in. I will obtain a download from [employer]. I recommended the patient bring in her home machine with an over the mouth under the nose mask that is more comfortable for her. 12/03/24: Patient wore the hospital noninvasive ventilator with BiPAP rate of 14 pressures 12/6 and 40% and said she slept well. I have obtained a download from [employer] From 07/09/2024 through 09/15/2024 and the patient is on TTV-VAPS- AE rate is auto, tidal volume 450, EPAP minimum 6, EPAP maximum 15, pressure support 4, pressure support maximum 25, speed of 3, with 2 L bleed in. Uses days 07/18/2029, usage average 3 hours and 28 minutes. Median respiratory rate 21, median tidal volume 450. Median EPAP 6, median IPAP 12.5, median minute ventilation 8.1. Median leak 12.5. I interpret this download as poor compliance, adequate pressures and low leak. Plan: to better match her home settings I have placed the patient on AVAPS rate of 14, tidal volume 450, EPAP 6, minimal inspiratory pressure 7, maximal inspiratory pressure 25, inspiratory time 1.0, rise of 5 which is are slowest and 28% FiO2. I will obtain an overnight oximetry and an ABG prior to removal on these settings. I recommended the patient bring in her home machine so that we can use this while she is in the hospital. 12/04/24; Patient wore the hospital noninvasive ventilator with the AVAPS mode with rate of 14, tidal volume 450, EPAP 6, minimal inspiratory pressure 7, maximal inspiratory pressure 25, 28% FiO2. Patient had a overnight oximetry on these settings with recording duration of 7 hours and 2 minutes, average saturation 97%, low saturation 81%, time with saturation less than or equal to 88% was 1.0 minutes, oxygen desaturation index 1.5. Patient had ABG prior to removal of the mask with pH of 7.45/51/108. Patient states her home machine is more comfortable. Plan: current hospital AVAPS setting provide adequate oxygenation and ventilation. I told the patient to bring her home machine in as it is more comfortable. Subjective Date/time seen: 12/04/24 09:44 Interval history: 12/02/2024: This is a new pulmonary consult for COPD 74-year-old with a history of asthma, bronchiectasis with chronic hypoxemic and hypercarbic respiratory failure on supplemental oxygen and noninvasive ventilation at night. regarding patient's asthma she was diagnosed as a young child and remembers having asthma all her life. She has been on inhaled medicines all her life. she has been on Dupixent for about 1 and half years and does not know if this is for her asthma. Regarding her bronchiectasis patient Patient was diagnosed at least 5 [address] scan. She was admitted to the hospital with what sounds like hypercarbic respiratory failure 2 years ago. She was treated with BiPAP and told she had bronchiectasis and discharged on home noninvasive ventilator. As an outpatient she saw a permanent mold supervisor at [facility] after this and was told she had bronchiectasis. She is unsure if she had a complete workup but apparently they had a case conference with multiple subspecialists there. The patient tells me she is chronically colonized with Pseudomonas. She is not familiar with the term Aspergillus or ABPA. At baseline she is on theophylline 400 today, trelegy 100, , azithromycin 500 3 times a week, vest therapy twice a day, Dupixent injection every 2 weeks. Patient's last prednisone use was 18 months ago. At baseline the patient says she can walk around her house but then has respiratory limitations. She uses no oxygen at rest, 2 L with activity and 2 L bleed in at night. She is a never smoker and never exposed to secondhand smoke. Her father of respiratory issues at age 45 and thinks he had the same condition as her. she has 11 siblings none of them have this respiratory condition. She has 2 children, and one is a 60 YO daughter and she has the same breathing condition but is not sure if she has bronchiectasis. this daughter has 2 healthy children. Approximately 1 month ago the patient was fatigued, had worsening shortness of breath and increased phlegm and was given a course of Levaquin and Solu-Medrol by her PCP. Patient showed no improvement and about 2 weeks ago was prescribed another dose of Medrol and Levaquin. Patient states for the last month she has been run down taking care of her who has had a stroke. For 1 month she has had worsening cough, increased phlegm production the phlegm has changed and is times as pudding consistency and very slimy. It is yellow in color with no blood. She denies fever, chills, rigors. She denies chronic weight loss. Patient was seen at urgent care on 12/01/24 and then in the emergency department with a blood pressure of 153/90, heart rate 78, respiratory is 20, on 3 L nasal cannula saturation 98%. She was labored, had decreased breath sounds and wheezes. Her white blood cell count was 18.7 with 0.2% eosinophils, creatinine 1.17, BNP 424, COVID, influenza, RSV RT PCR assay negative, MRSA swab negative, ABG on 3 L nasal cannula 7.47/48/54. CT scan of the chest showed diffuse panlobular cylindrical bronchiectasis with bilateral diffuse tree-in-bud infiltrates. There were no consolidations, no pleural disease, no bullous emphysema, no interstitial lung disease. Patient was initiated on Solu-Medrol, bronchodilators, ceftriaxone and azithromycin. Ceftriaxone and azithromycin were changed to Levaquin and meropenem. 12/02/2024: Patient says she is feeling better. She says that her cough and phlegm production her 80% back to her normal. She was placed on BiPAP last night and said that the air delivery felt the same but the mask was more comfortable than her home mask. She is afebrile. Currently she is on 2.5 L nasal cannula saturations 94-95%. White blood cell count 17.1, creatinine 0.96. 12/03/24: Patient says she is feeling much better than when she was admitted and slept better last night. Overall she feels she is about 80% back to her normal. Her phlegm production has decreased. When I enter the room she was on 2 L nasal. I placed her to room air and her saturations were 93%. Her white blood cell count is 19.6, creatinine is 0.92, her procalcitonin is 0.1. Sputum Gram stain with Gram-positive cocci. Patient wore the [facility] noninvasive ventilator with BiPAP rate of 14 pressures 12/6 and 40% and said she slept well. I have obtained a download from [employer] From 07/09/2024 through 09/15/2024 and the patient is on TTV-VAPS- AE rate is auto, tidal volume 450, EPAP minimum 6, EPAP maximum 15, pressure support 4, pressure support maximum 25, speed of 3, with 2 L bleed in. Uses days 07/18/2029, usage average 3 hours and 28 minutes. Median respiratory rate 21, median tidal volume 450. Median EPAP 6, median IPAP 12.5, median minute ventilation 8.1. Median leak 12.5. I interpret this download as poor compliance, adequate pressures and low leak. 12/04/24: Patient tells me she continues to improve. Is difficult to quantitate. She says she has 50% back to her normal. She denies any phlegm production or hemoptysis. Her cough is improved. She is afebrile. When I enter the room she was on 2 L with saturation 99%. I turned her to room air and after 8 minutes her saturations were 94%. White blood cell count 16.3, creatinine 0.86. Patient wore the [facility] noninvasive ventilator with the AVAPS mode with rate of 14, tidal volume 450, EPAP 6, minimal inspiratory pressure 7, maximal inspiratory pressure 25, 28% FiO2. Patient had a overnight oximetry on these settings with recording duration of 7 hours and 2 minutes, average saturation 97%, low saturation 81%, time with saturation less than or equal to 88% was 1.0 minutes, oxygen desaturation index 1.5. Patient had ABG prior to removal of the mask with pH of 7.45/51/108. DATA: 12/01/24: EXAMINATION: CT diagnostic chest wo con INDICATION: nodule vs infection COMPARISON: X-ray chest, same date. FINDINGS: CHEST: Thoracic aorta: Borderline ectasia of the ascending aorta measuring up to 3.9 cm. Moderate atherosclerotic calcifications. Visualization of the aortic wall as can be seen with anemia. Lung parenchyma and airways: Significant biapical pleural scarring. Tree-in-bud opacities in all lung lobes. Widespread cystic and cylindrical bronchiectasis. Several areas of the cystic bronchiectasis contain fluid or aerated secretions. Thoracic inlet, axillae and chest wall: No thyroid or soft tissue mass. No axillary lymphadenopathy. Mediastinum: Dilated central pulmonary arteries as can be seen with pulmonary hypertension. Large hiatal hernia containing approximately one half of the stomach. Heart and pericardium: Mild cardiomegaly. Aortic valve and mitral calcifications Trace pericardial fluid. Coronary artery calcifications: Mild. Pleura: Fat-containing right posterior diaphragmatic hernia. Upper abdomen: No significant finding. Thoracic bones: No acute osseous finding in the chest. IMPRESSION: Diffuse tree-in-bud opacities with severe bronchiectasis, concerning for atypical infection, including but not limited to: tuberculosis, MAC, fungal infection, and bacterial bronchopneumonia. Chronic aspiration considered less likely given the distribution. Mild cardiomegaly. Trace pericardial effusion. Results reported telephonically to Debbie Mac RN by Dr. Willson at 10:29 PM on 12/01/2024. Review of Systems Constitutional: Constitutional: Reports no additional constitutional complaints Eyes: Eyes: Reports no additional eye complaints ENT: Reports system reviewed and no additional complaints, except as documented Cardiovascular: Cardiovascular: Reports no additional cardiovascular complaints Respiratory: Respiratory: Reports no additional respiratory complaints Gastrointestinal: Gastrointestinal: Reports no additional gastrointestinal complaints Musculoskeletal: Musculoskeletal: Reports no additional musculoskeletal complaints Neurologic: Reports system reviewed and no additional complaints, except as documented Psychiatric: Psychiatric: Reports no additional psychiatric complaints Endocrine: Endocrine: Reports no additional endocrine complaints Hematologic/Lymphatic: Hematologic/Lymphatic: Reports no additional hematologic/lymphatic complaints Allergic/Immunologic: Allergic/Immunologic: Reports no additional allergic/immunologic complaints Exam Narrative: Comfortable Const: General: cooperative, healthy appearing and comfortable Orientation/consciousness: oriented to person, oriented to place and oriented to time HENMT: Head: normal to inspection Ears: hearing grossly normal bilaterally Eyes: General: appearance normal, both eyes and all related structures Neck: Neck: normal visual inspection Chest: Chest palpation & inspection: normal inspection of the chest Resp: Effort & Inspection: normal respiratory effort and able to speak in complete sentences Auscultation: crackles, no rales, no rhonchi, wheezes and lung sounds not diminished Other: patient with inspiratory squeaks and crackles. No Expiratory wheezes today Cardio: Jugular venous distension: no JVD GI: Inspection: normal to inspection Skin: General skin exam: normal color Neuro: General: oriented to person, oriented to place and oriented to time Extrem: General: normal to inspection Psych: Appearance: grossly normal Objective Data Vital Signs Vital Signs: Vital Signs - 24 hr 12/03/24 10:00 12/03/24 11:49 12/03/24 12:00 Temperature 36.5 C Pulse Rate 85 82 Respiratory Rate 18 Blood Pressure 128/58 L Pulse Oximetry 92 95 Oxygen Delivery Nasal Cannula Oxygen Flow Rate 2 Fraction of Inspired Oxygen 12/03/24 12:00 12/03/24 13:40 12/03/24 13:51 Temperature Pulse Rate 94 74 75 Respiratory Rate 18 18 Blood Pressure Pulse Oximetry Oxygen Delivery Oxygen Flow Rate Fraction of Inspired Oxygen 12/03/24 14:00 12/03/24 16:00 12/03/24 16:00 Temperature Pulse Rate 102 H 86 Respiratory Rate Blood Pressure Pulse Oximetry 96 Oxygen Delivery Nasal Cannula Oxygen Flow Rate 2 Fraction of Inspired Oxygen 12/03/24 16:16 12/03/24 18:00 12/03/24 19:53 Temperature 36.8 C Pulse Rate 90 97 78 Respiratory Rate 21 H 18 Blood Pressure 118/56 L Pulse Oximetry 97 Oxygen Delivery Oxygen Flow Rate Fraction of Inspired Oxygen 12/03/24 19:54 12/03/24 20:00 12/03/24 20:00 Temperature 36.8 C Pulse Rate 79 75 Respiratory Rate 18 18 Blood Pressure 124/60 Pulse Oximetry 97 97 Oxygen Delivery Nasal Cannula Oxygen Flow Rate 2 Fraction of Inspired Oxygen 12/03/24 20:00 12/03/24 22:00 12/03/24 22:00 Temperature Pulse Rate 89 88 Respiratory Rate 25 H Blood Pressure Pulse Oximetry Oxygen Delivery Oxygen Flow Rate Fraction of Inspired Oxygen 12/03/24 22:43 12/03/24 23:45 12/04/24 00:00 Temperature 36.9 C Pulse Rate 74 Respiratory Rate 20 Blood Pressure 129/53 L Pulse Oximetry 95 98 98 Oxygen Delivery BiPAP BiPAP Oxygen Flow Rate Fraction of Inspired Oxygen 28 12/04/24 00:00 12/04/24 02:00 12/04/24 02:09 Temperature Pulse Rate 72 64 Respiratory Rate 20 Blood Pressure Pulse Oximetry Oxygen Delivery Oxygen Flow Rate Fraction of Inspired Oxygen 12/04/24 03:39 12/04/24 04:00 12/04/24 04:00 Temperature 36.8 C Pulse Rate 84 64 Respiratory Rate 18 Blood Pressure 150/62 H Pulse Oximetry 98 98 Oxygen Delivery BiPAP Oxygen Flow Rate Fraction of Inspired Oxygen 28 12/04/24 05:10 12/04/24 06:00 12/04/24 07:22 Temperature Pulse Rate 60 75 Respiratory Rate 22 H 18 Blood Pressure Pulse Oximetry Oxygen Delivery Oxygen Flow Rate Fraction of Inspired Oxygen 12/04/24 07:56 12/04/24 07:57 12/04/24 08:00 Temperature Pulse Rate 77 67 Respiratory Rate 18 18 Blood Pressure Pulse Oximetry 97 100 Oxygen Delivery Nasal Cannula Nasal Cannula Oxygen Flow Rate 2 2 Fraction of Inspired Oxygen 12/04/24 08:14 12/04/24 09:01 Temperature 36.8 C Pulse Rate 68 69 Respiratory Rate 22 H Blood Pressure 151/65 H Pulse Oximetry 100 Oxygen Delivery Oxygen Flow Rate Fraction of Inspired Oxygen Intake/Output Intake/Output: Intake & Output 12/01/24 12/02/24 12/03/24 12/04/24 23:59 23:59 23:59 23:59 Intake Total 350 1340 1790 400 Output Total 1600 1025 1000 Balance 350 -260 765 -600 Meds/Results Medications: Active Medications Generic Name Dose Route Start Last Admin Trade Name Freq PRN Reason Stop Dose Admin Acetaminophen 650 mg 12/01/24 19:41 Acetaminophen 325 Mg Tablet PO Q6H PRN Mild Pain (1-3) or Fever Albuterol/Ipratropium 3 ml 12/01/24 20:00 12/04/24 07:21 Ipratropium 0.5 Mg/Albuterol Sulfate 2.5 Mg Ampul.Neb 3 Ml INHALATION 3 ml Q6HRT [place] Administration Benzonatate 100 mg 12/01/24 19:40 Benzonatate 100 Mg Capsule PO TID PRN Cough Clopidogrel Bisulfate 75 mg 12/02/24 09:00 12/04/24 09:01 Clopidogrel Bisulfate 75 Mg Tablet PO 75 mg DAILY [place] Administration Digoxin 125 mcg 12/02/24 09:00 12/04/24 09:01 Digoxin Tab 125 Mcg Tablet PO 125 mcg DAILY [place] Administration Enoxaparin Sodium 40 mg 12/02/24 09:00 12/04/24 09:00 Enoxaparin 40 Mg/0.4 Ml Syringe SUB-Q 40 mg DAILY [place] Administration Ergocalciferol 1,250 mcg 12/12/24 09:00 Ergocalciferol (Vitamin D2) 1,250 Mcg (50,000 Units) Capsule PO [id number] [place] Guaifenesin 1,200 mg 12/02/24 21:00 12/04/24 09:00 Guaifenesin 12 Hr 600 Mg Tabcr PO 1,200 mg Q12HR [place] Administration Hydralazine HCl 50 mg 12/02/24 09:00 12/04/24 09:00 Hydralazine Hcl 50 Mg Tablet PO 50 mg DAILY [place] Administration Hydrochlorothiazide 25 mg 12/02/24 09:00 12/04/24 09:01 Hydrochlorothiazide 25 Mg Tablet PO 25 mg DAILY [place] Administration Levofloxacin/Dextrose 750 mg in 150 mls @ 100 mls/hr 12/02/24 00:00 12/03/24 23:37 Levaquin 750 Mg/D5w 150 Ml IVPB 100 mls/hr Q48H [place] Administration Meropenem 1 gm/ Sodium 100 mls @ 200 mls/hr 12/02/24 18:00 12/04/24 05:06 Chloride IVPB 200 mls/hr Q12H [place] Administration Isosorbide Mononitrate 30 mg 12/02/24 09:00 12/04/24 09:01 Isosorbide Mononitrate 30 Mg Tab.Er.24h PO 30 mg DAILY [place] Administration Methylprednisolone Sodium Succinate 20 mg 12/02/24 18:00 12/04/24 05:05 Methylprednisolone Sod Succ 40 Mg Vial IV PUSH 20 mg Q6HR [place] Administration Montelukast Sodium 10 mg 12/01/24 23:15 12/03/24 20:36 Montelukast Sodium 10 Mg Tablet PO 10 mg QHS [place] Administration Huber-24 Er 400mg 1 each 12/02/24 09:00 12/04/24 09:02 Capsule *Use Home BY MOUTH 01/01/25 08:59 1 each Supply* DAILY [place] Administration Pantoprazole Sodium 40 mg 12/02/24 09:00 12/04/24 09:01 Pantoprazole 40 Mg Tablet PO 40 mg Q12HR [place] Administration Prochlorperazine Edisylate 10 mg 12/01/24 19:41 Prochlorperazine Edisylate 10 Mg/2 Ml Vial IV PUSH Q6H PRN Nausea And Vomiting Rosuvastatin Calcium 40 mg 12/02/24 09:00 12/04/24 09:00 Rosuvastatin 20 Mg Tablet PO 40 mg DAILY [place] Administration Sodium Chloride 6 ml 12/03/24 05:00 12/04/24 09:00 Sodium Chlor 3% 15 Ml Neb (Respiratory Therapy) INHALATION 12/05/24 05:01 Not Given DAILY@0500 [facility] Radiology Results: ITS Impressions Chest X-Ray 12/01/24 18:29 IMPRESSION: Reticulonodular right lower lung opacities may represent infection, including atypical variants, overlying chronic emphysematous/interstitial changes. Possible 1.3 cm right lower lung pulmonary nodule, versus nodular appearing consolidation from infection. Recommend nonemergent but timely low-dose noncontrast CT of the chest for further evaluation. Chest CT 12/01/24 22:09 IMPRESSION: Diffuse tree-in-bud opacities with severe bronchiectasis, concerning for atypical infection, including but not limited to: tuberculosis, MAC, fungal infection, and bacterial bronchopneumonia. Chronic aspiration considered less likely given the distribution. Mild cardiomegaly. Trace pericardial effusion. Results reported telephonically to Debbie Mac RN by Dr. Willson at 10:29 PM on 12/01/2024. Labs Labs: Laboratory Results - last 24 hr 12/03/24 12/03/24 12/03/24 06:07 06:07 06:07 WBC RBC Hgb Hct MCV MCH MCHC RDW Plt Count MPV Puncture Site ABG pH ABG pCO2 ABG pO2 ABG PO2/FiO2 Ratio ABG HCO3 ABG O2 Saturation ABG O2 Content ABG Base Excess A-a Gradient Oxyhemoglobin Total Hemoglobin O2 Delivery Device O2 Liters/Min Vent Rate FiO2 Expiratory Pressure Inspiratory Pressure Sodium Potassium Chloride Carbon Dioxide Anion Gap BUN Creatinine Estim Creat Clear Calc Estimated GFR Glucose Calcium Magnesium Rdlej-5-Wrdoohdoson Cancelled Cancelled 167 Alpha-1-AT Phenotype Cancelled A.fumigatus Allerg IgE Cancelled A.fumigatus IgE Conv Cl Cancelled A. fumigatus Interp Cancelled [place] Serum Ab Cancelled [place] Serum IgG Ab Cancelled Immunocap Total IgE Cancelled Theophylline Cancelled IgG IgG1 IgG2 IgG3 IgG4 IgE Anti-Cycl Citrul Peptide EROS Scrn Qualitative EROS Flanagan Interp ANCA Screen c-ANCA Titer p-ANCA Titer Atypical p-ANCA Titer VICKY-1 Antibody Anti-Vicky-1 FEIA c/o 6.9 EJ Antibody OJ Antibody Mi-2 Antibody NXP-[address]-12 Antibody Anti-TN-2 Beta Anti-MDA5 Myos P155/140 TIF1-g Ab SS-A Antibody SS-B Antibody Sm (Gavin) Antibody TUBE HANDLER Antibody SM/TUBE HANDLER IgG Antibody Scl-70 Antibody Anti-DNA Antibody Anti-Ribosomal Ab Chromatin Antibody Anti-SRP Antibody Centromere B Antibody Saccharo. viridis Ab T. candidus Antibody T. sacchari IgG Ab T. vulgaris Antibody T. vulgaris IgG Ab Aspergillus flavus Ab Aspergill fumigatus Ab Aspergillus fum #1 Ab A. fumigatus IgG Ab Aspergillus niger Ab A. pullulans Aller IgG Micropolyspora faeni Ab M. faeni IgG Ab 12/03/24 12/03/24 12/03/24 06:07 06:07 06:07 WBC RBC Hgb Hct MCV MCH MCHC RDW Plt Count MPV Puncture Site ABG pH ABG pCO2 ABG pO2 ABG PO2/FiO2 Ratio ABG HCO3 ABG O2 Saturation ABG O2 Content ABG Base Excess A-a Gradient Oxyhemoglobin Total Hemoglobin O2 Delivery Device O2 Liters/Min Vent Rate FiO2 Expiratory Pressure Inspiratory Pressure Sodium Potassium Chloride Carbon Dioxide Anion Gap BUN Creatinine Estim Creat Clear Calc Estimated GFR Glucose Calcium Magnesium Uqvja-6-Fltlrfnbgmd Alpha-1-AT Phenotype A.fumigatus Allerg IgE A.fumigatus IgE Conv Cl A. fumigatus Interp [place] Serum Ab [place] Serum IgG Ab Immunocap Total IgE Theophylline 11.7 IgG Cancelled IgG1 Cancelled IgG2 Cancelled IgG3 Cancelled IgG4 Cancelled IgE Cancelled Anti-Cycl Citrul Peptide Cancelled EROS Scrn Qualitative Cancelled EROS [place] Interp Cancelled ANCA Screen Cancelled c-ANCA Titer Cancelled p-ANCA Titer Cancelled Atypical p-ANCA Titer Cancelled VICKY-1 Antibody Cancelled Anti-Vicky-1 FEIA c/o 6.9 Cancelled EJ Antibody Cancelled OJ Antibody Cancelled Mi-2 Antibody Cancelled NXP-[address]-12 Antibody Cancelled Anti-TN-2 Beta Cancelled Anti-MDA5 Cancelled Myos P155/140 TIF1-g Ab Cancelled SS-A Antibody Cancelled SS-B Antibody Cancelled Sm (Gavin) Antibody Cancelled TUBE HANDLER Antibody Cancelled SM/TUBE HANDLER IgG Antibody Cancelled Scl-70 Antibody Cancelled Anti-DNA Antibody Cancelled Anti-Ribosomal Ab Cancelled Chromatin Antibody Cancelled Anti-SRP Antibody Cancelled Centromere B Antibody Cancelled Saccharo. viridis Ab Cancelled T. candidus Antibody Cancelled T. sacchari IgG Ab Cancelled T. vulgaris Antibody Cancelled T. vulgaris IgG Ab Cancelled Aspergillus flavus Ab Cancelled Aspergill fumigatus Ab Cancelled Aspergillus fum #1 Ab Cancelled A. fumigatus IgG Ab Cancelled Cancelled Cancelled Aspergillus niger Ab Cancelled A. pullulans Aller IgG Cancelled Micropolyspora faeni Ab Cancelled M. faeni IgG Ab Cancelled 12/03/24 12/04/24 12/04/24 22:28 04:22 04:49 WBC 16.3 H RBC 3.75 L Hgb 10.2 L Hct 33.3 L MCV 88.8 MCH 27.2 MCHC 30.6 L RDW 15.0 H Plt Count 363 MPV 9.6 Puncture Site Right radial ABG pH 7.446 ABG pCO2 51.1 H ABG pO2 108.2 H ABG PO2/FiO2 Ratio 3.86 ABG HCO3 34.4 H ABG O2 Saturation 98.1 ABG O2 Content 15.2 L ABG Base Excess 9.0 A-a Gradient 31.1 Oxyhemoglobin 97.8 Total Hemoglobin 10.9 L O2 Delivery Device Non-invasive vent O2 Liters/Min Automatic Splicing Machine Operator Vent Rate 14 FiO2 28 Expiratory Pressure 6 Inspiratory Pressure Not Reportable Sodium 138 137 Potassium 3.4 4.0 Chloride 97 L 96 L Carbon Dioxide 34 H 35 H Anion Gap 7 6 BUN 32 H 30 H Creatinine 0.96 0.86 Estim Creat Clear Calc 35 39 Estimated GFR 57 L > 60 Glucose 169 H 139 H Calcium 9.5 9.3 Magnesium 1.9 Lyrxg-0-Zfrbqyshxtq Alpha-1-AT Phenotype A.fumigatus Allerg IgE A.fumigatus IgE Conv Cl A. fumigatus Interp [place] Serum Ab [place] Serum IgG Ab Immunocap Total IgE Theophylline IgG IgG1 IgG2 IgG3 IgG4 IgE Anti-Cycl Citrul Peptide EROS Scrn Qualitative EROS [place] Interp ANCA Screen c-ANCA Titer p-ANCA Titer Atypical p-ANCA Titer VICKY-1 Antibody Anti-Vicky-1 FEIA c/o 6.9 EJ Antibody OJ Antibody Mi-2 Antibody NXP-2 Ab [address]-12 Antibody Anti-TN-2 Beta Anti-MDA5 Myos P155/140 TIF1-g Ab SS-A Antibody SS-B Antibody Sm (Gavin) Antibody TUBE HANDLER Antibody SM/TUBE HANDLER IgG Antibody Scl-70 Antibody Anti-DNA Antibody Anti-Ribosomal Ab Chromatin Antibody Anti-SRP Antibody Centromere B Antibody Saccharo. viridis Ab T. candidus Antibody T. sacchari IgG Ab T. vulgaris Antibody T. vulgaris IgG Ab Aspergillus flavus Ab Aspergill fumigatus Ab Aspergillus fum #1 Ab A. fumigatus IgG Ab Aspergillus niger Ab A. pullulans Aller IgG Micropolyspora faeni Ab M. faeni IgG Ab
--- NOTE | 2024-12-04 09:56 | P.PNIM_ITS ---
Progress Note: A&P Assessment and Plan (1) Acute exacerbation of chronic obstructive pulmonary disease: Code(s): J44.1 - Chronic obstructive pulmonary disease with (acute) exacerbation Status: Acute (2) CAP (community acquired pneumonia): Qualifiers: Laterality: right Lung location: lower lobe of lung Qualified Code(s): J18.9 - Pneumonia, unspecified organism Code(s): J18.9 - Pneumonia, unspecified organism Status: Acute (3) Acute on chronic hypoxic respiratory failure: Code(s): J96.21 - Acute and chronic respiratory failure with hypoxia Status: Acute (4) Acute on chronic respiratory failure with hypoxia and hypercapnia: Code(s): J96.21 - Acute and chronic respiratory failure with hypoxia; J96.22 - Acute and chronic respiratory failure with hypercapnia Status: Acute (5) Hypertension: Code(s): I10 - Essential (primary) hypertension Status: Chronic Plan (1) Acute on chronic respiratory failure with hypoxia and hypercapnia: Code(s): J96.21 - Acute and chronic respiratory failure with hypoxia; J96.22 - Acute and chronic respiratory failure with hypercapnia Status: Acute Assessment and Plan: Patient presents with SOB. ABG - 7.46/48/54 on 3L CXR concerning for infection and possible pulmonary nodule CT chest without contrast showing diffuse tree-in-bud opacities with severe bronchiectasis, concerning for atypical infection, mild cardiomegaly and trace pericardial effusion. Acute on chronic respiratory failure secondary to COPD exacerbation and atypical pneumonia with underlying bronchiectasis. Started on steroids, bronchodilators and abx. Pulmonary consulted and appreciate their input. Able to come off bipap. Able to wean down on oxygen Continue bipap as needed. Wean O2 as toelrated (2) CAP (community acquired pneumonia): Qualifiers: Laterality: right Lung location: lower lobe of lung Qualified Code(s): J18.9 - Pneumonia, unspecified organism Code(s): J18.9 - Pneumonia, unspecified organism Status: Acute Assessment and Plan: Imaging as above. She did not meet SIRS criteria. She failed 2 course of Levaquin prior to admission. Started on ceftriaxone and azithromycin in the ED but changed to cefepime, azithromycin, and vancomycin then changed to Meropenem for pseudomonal coverage MRSA nasal swab negative so Vancomycin discontinued. Azithro stopped and Levaquin added for atypical coverage COVID, RSV and influenza PCR negative. Respiratory viral panel ordered. BCx NGTD Sputum culture growing gram positive cocci AFB Sputum negative to date. Mycoplasma, Legionella Ag, pneumococcal Ag ordered Aspergillus testing and testing for connective tissue disease sent WBC higher but felt related to steroids. Continue Levaquin and Meropenem. Pulmonology following, continue Levaquin and meropenem, both day 3 for bacterial infection. (3) COPD exacerbation: Code(s): J44.1 - Chronic obstructive pulmonary disease with (acute) exacerbation Status: Inactive Assessment and Plan: As above. Having some wheezing. On Huber-24 and level pending Remains on Solu-Medrol. Continue abx, nebs and steroids. Wean O2 as toelrated (4) Hypertension: Code(s): I10 - Essential (primary) hypertension Status: Chronic Assessment and Plan: Patient's blood pressure was reviewed on 12/03 Blood pressure remains well controlled. Will continue to monitor (5) Bronchiectasis: Code(s): J47.9 - Bronchiectasis, uncomplicated Status: Acute Assessment and Plan: Patient with bronchiectasis and has has asthma since childhood. RF mildly elevated at 19. IgG slightly low at 670. The remainder of the workup pending. Followup on results Subjective Date/time seen: 12/04/24 09:56 Interval history: I saw exam patient today, patient feels better today, still has cough without phlegm, patient is on room air. Patient feels generally week denies focal weakness Patient also denies chest pain abdomen pain nausea vomiting diarrhea. Exam Narrative: GENERAL: Pleasant, in no acute distress. Well-nourished. - EYES: EOMI. Anicteric. - HENT: Moist mucous membranes. - LUNGS: Coarse breath sound bilaterall y - CARDIOVASCULAR: Regular rate and rhyth m. No murmur. No JVD. - ABDOMEN: Soft, non-tender and non-dist ended. No palpable masses. - EXTREMITIES: No edema. Peripheral puls es 2+. Non-tender. - NEUROLOGIC: No focal neurological defi cits. CN II-XII grossly intact. - PSYCHIATRIC: Awake, Alert and oriented x 3. Appropriate mood and affect. - SKIN: No rashes or lesions. Warm. - LYMPH: No cervical lymphadenopathy. Objective Data Vital Signs Vital Signs: Vital Signs - 24 hr 12/03/24 10:00 12/03/24 11:49 12/03/24 12:00 Temperature 97.7 F Pulse Rate 85 82 Respiratory Rate 18 Blood Pressure 128/58 L Pulse Oximetry 92 95 Oxygen Delivery Nasal Cannula Oxygen Flow Rate 2 Fraction of Inspired Oxygen 12/03/24 12:00 12/03/24 13:40 12/03/24 13:51 Temperature Pulse Rate 94 74 75 Respiratory Rate 18 18 Blood Pressure Pulse Oximetry Oxygen Delivery Oxygen Flow Rate Fraction of Inspired Oxygen 12/03/24 14:00 12/03/24 16:00 12/03/24 16:00 Temperature Pulse Rate 102 H 86 Respiratory Rate Blood Pressure Pulse Oximetry 96 Oxygen Delivery Nasal Cannula Oxygen Flow Rate 2 Fraction of Inspired Oxygen 12/03/24 16:16 12/03/24 18:00 12/03/24 19:53 Temperature 98.2 F Pulse Rate 90 97 78 Respiratory Rate 21 H 18 Blood Pressure 118/56 L Pulse Oximetry 97 Oxygen Delivery Oxygen Flow Rate Fraction of Inspired Oxygen 12/03/24 19:54 12/03/24 20:00 12/03/24 20:00 Temperature 98.3 F Pulse Rate 79 75 Respiratory Rate 18 18 Blood Pressure 124/60 Pulse Oximetry 97 97 Oxygen Delivery Nasal Cannula Oxygen Flow Rate 2 Fraction of Inspired Oxygen 12/03/24 20:00 12/03/24 22:00 12/03/24 22:00 Temperature Pulse Rate 89 88 Respiratory Rate 25 H Blood Pressure Pulse Oximetry Oxygen Delivery Oxygen Flow Rate Fraction of Inspired Oxygen 12/03/24 22:43 12/03/24 23:45 12/04/24 00:00 Temperature 98.4 F Pulse Rate 74 Respiratory Rate 20 Blood Pressure 129/53 L Pulse Oximetry 95 98 98 Oxygen Delivery BiPAP BiPAP Oxygen Flow Rate Fraction of Inspired Oxygen 28 12/04/24 00:00 12/04/24 02:00 12/04/24 02:09 Temperature Pulse Rate 72 64 Respiratory Rate 20 Blood Pressure Pulse Oximetry Oxygen Delivery Oxygen Flow Rate Fraction of Inspired Oxygen 12/04/24 03:39 12/04/24 04:00 12/04/24 04:00 Temperature 98.3 F Pulse Rate 84 64 Respiratory Rate 18 Blood Pressure 150/62 H Pulse Oximetry 98 98 Oxygen Delivery BiPAP Oxygen Flow Rate Fraction of Inspired Oxygen 28 12/04/24 05:10 12/04/24 06:00 12/04/24 07:22 Temperature Pulse Rate 60 75 Respiratory Rate 22 H 18 Blood Pressure Pulse Oximetry Oxygen Delivery Oxygen Flow Rate Fraction of Inspired Oxygen 12/04/24 07:56 12/04/24 07:57 12/04/24 08:00 Temperature Pulse Rate 77 67 Respiratory Rate 18 18 Blood Pressure Pulse Oximetry 97 100 Oxygen Delivery Nasal Cannula Nasal Cannula Oxygen Flow Rate 2 2 Fraction of Inspired Oxygen 28 12/04/24 08:14 12/04/24 09:01 Temperature 98.2 F Pulse Rate 68 69 Respiratory Rate 22 H Blood Pressure 151/65 H Pulse Oximetry 100 Oxygen Delivery Oxygen Flow Rate Fraction of Inspired Oxygen Intake/Output Intake/Output: Intake & Output 12/01/24 12/02/24 12/03/24 12/04/24 23:59 23:59 23:59 23:59 Intake Total 350 1340 1790 400 Output Total 1600 1025 1000 Balance 350 -260 765 -600 Meds/Results Medications: Active Medications Generic Name Dose Route Start Last Admin Trade Name Freq PRN Reason Stop Dose Admin Acetaminophen 650 mg 12/01/24 19:41 Acetaminophen 325 Mg Tablet PO Q6H PRN Mild Pain (1-3) or Fever Albuterol/Ipratropium 3 ml 12/01/24 20:00 12/04/24 07:21 Ipratropium 0.5 Mg/Albuterol Sulfate 2.5 Mg Ampul.Neb 3 Ml INHALATION 3 ml Q6HRT [place] Administration Benzonatate 100 mg 12/01/24 19:40 Benzonatate 100 Mg Capsule PO TID PRN Cough Clopidogrel Bisulfate 75 mg 12/02/24 09:00 12/04/24 09:01 Clopidogrel Bisulfate 75 Mg Tablet PO 75 mg DAILY [facility] Administration Digoxin 125 mcg 12/02/24 09:00 12/04/24 09:01 Digoxin Tab 125 Mcg Tablet PO 125 mcg DAILY [facility] Administration Enoxaparin Sodium 40 mg 12/02/24 09:00 12/04/24 09:00 Enoxaparin 40 Mg/0.4 Ml Syringe SUB-Q 40 mg DAILY [facility] Administration Ergocalciferol 1,250 mcg 12/12/24 09:00 Ergocalciferol (Vitamin D2) 1,250 Mcg (50,000 Units) Capsule PO [id number] [facility] Guaifenesin 1,200 mg 12/02/24 21:00 12/04/24 09:00 Guaifenesin 12 Hr 600 Mg Tabcr PO 1,200 mg Q12HR [place] Administration Hydralazine HCl 50 mg 12/02/24 09:00 12/04/24 09:00 Hydralazine Hcl 50 Mg Tablet PO 50 mg DAILY [place] Administration Hydrochlorothiazide 25 mg 12/02/24 09:00 12/04/24 09:01 Hydrochlorothiazide 25 Mg Tablet PO 25 mg DAILY [place] Administration Levofloxacin/Dextrose 750 mg in 150 mls @ 100 mls/hr 12/02/24 00:00 12/03/24 23:37 Levaquin 750 Mg/D5w 150 Ml IVPB 100 mls/hr Q48H [place] Administration Meropenem 1 gm/ Sodium 100 mls @ 200 mls/hr 12/02/24 18:00 12/04/24 05:06 Chloride IVPB 200 mls/hr Q12H [place] Administration Isosorbide Mononitrate 30 mg 12/02/24 09:00 12/04/24 09:01 Isosorbide Mononitrate 30 Mg Tab.Er.24h PO 30 mg DAILY [place] Administration Methylprednisolone Sodium Succinate 20 mg 12/02/24 18:00 12/04/24 05:05 Methylprednisolone Sod Succ 40 Mg Vial IV PUSH 20 mg Q6HR [place] Administration Montelukast Sodium 10 mg 12/01/24 23:15 12/03/24 20:36 Montelukast Sodium 10 Mg Tablet PO 10 mg QHS [place] Administration Huber-24 Er 400mg 1 each 12/02/24 09:00 12/04/24 09:02 Capsule *Use Home BY MOUTH 01/01/25 08:59 1 each Supply* DAILY [facility] Administration Pantoprazole Sodium 40 mg 12/02/24 09:00 12/04/24 09:01 Pantoprazole 40 Mg Tablet PO 40 mg Q12HR [place] Administration Prochlorperazine Edisylate 10 mg 12/01/24 19:41 Prochlorperazine Edisylate 10 Mg/2 Ml Vial IV PUSH Q6H PRN Nausea And Vomiting Rosuvastatin Calcium 40 mg 12/02/24 09:00 12/04/24 09:00 Rosuvastatin 20 Mg Tablet PO 40 mg DAILY [place] Administration Sodium Chloride 6 ml 12/03/24 05:00 12/04/24 09:00 Sodium Chlor 3% 15 Ml Neb (Respiratory Therapy) INHALATION 12/05/24 05:01 Not Given DAILY@0500 [facility] Radiology Results: ITS Impressions Chest X-Ray 12/01/24 18:29 IMPRESSION: Reticulonodular right lower lung opacities may represent infection, including atypical variants, overlying chronic emphysematous/interstitial changes. Possible 1.3 cm right lower lung pulmonary nodule, versus nodular appearing consolidation from infection. Recommend nonemergent but timely low-dose noncontrast CT of the chest for further evaluation. Chest CT 12/01/24 22:09 IMPRESSION: Diffuse tree-in-bud opacities with severe bronchiectasis, concerning for atypical infection, including but not limited to: tuberculosis, MAC, fungal infection, and bacterial bronchopneumonia. Chronic aspiration considered less likely given the distribution. Mild cardiomegaly. Trace pericardial effusion. Results reported telephonically to Debbie Mac RN by Dr. Willson at 10:29 PM on 12/01/2024. Labs Labs: Laboratory Results - last 24 hr 12/03/24 12/03/24 12/03/24 06:07 06:07 06:07 WBC RBC Hgb Hct MCV MCH MCHC RDW Plt Count MPV Puncture Site ABG pH ABG pCO2 ABG pO2 ABG PO2/FiO2 Ratio ABG HCO3 ABG O2 Saturation ABG O2 Content ABG Base Excess A-a Gradient Oxyhemoglobin Total Hemoglobin O2 Delivery Device O2 Liters/Min Vent Rate FiO2 Expiratory Pressure Inspiratory Pressure Sodium Potassium Chloride Carbon Dioxide Anion Gap BUN Creatinine Estim Creat Clear Calc Estimated GFR Glucose Calcium Magnesium Czgqm-5-Poyadnkcyss Cancelled Cancelled 167 Alpha-1-AT Phenotype Cancelled A.fumigatus Allerg IgE Cancelled A.fumigatus IgE Conv Cl Cancelled A. fumigatus Interp Cancelled [place] Serum Ab Cancelled [place] Serum IgG Ab Cancelled Immunocap Total IgE Cancelled Theophylline Cancelled IgG IgG1 IgG2 IgG3 IgG4 IgE Anti-Cycl Citrul Peptide EROS Scrn Qualitative EROS [place] Interp ANCA Screen c-ANCA Titer p-ANCA Titer Atypical p-ANCA Titer VICKY-1 Antibody Anti-Vicky-1 FEIA c/o 6.9 EJ Antibody OJ Antibody Mi-2 Antibody NXP-2 Ab PL-[address]-12 Antibody Anti-PA-2 Beta Anti-MDA5 Myos P155/140 TIF1-g Ab SS-A Antibody SS-B Antibody Sm (Gavin) Antibody GROUND CREWMAN AIRCRAFT SUPPORT Antibody SM/GROUND CREWMAN AIRCRAFT SUPPORT IgG Antibody Scl-70 Antibody Anti-DNA Antibody Anti-Ribosomal Ab Chromatin Antibody Anti-SRP Antibody Centromere B Antibody Saccharo. viridis Ab T. candidus Antibody T. sacchari IgG Ab T. vulgaris Antibody T. vulgaris IgG Ab Aspergillus flavus Ab Aspergill fumigatus Ab Aspergillus fum #1 Ab A. fumigatus IgG Ab Aspergillus niger Ab A. pullulans Aller IgG Micropolyspora faeni Ab M. faeni IgG Ab 12/03/24 12/03/24 12/03/24 06:07 06:07 06:07 WBC RBC Hgb Hct MCV MCH MCHC RDW Plt Count MPV Puncture Site ABG pH ABG pCO2 ABG pO2 ABG PO2/FiO2 Ratio ABG HCO3 ABG O2 Saturation ABG O2 Content ABG Base Excess A-a Gradient Oxyhemoglobin Total Hemoglobin O2 Delivery Device O2 Liters/Min Vent Rate FiO2 Expiratory Pressure Inspiratory Pressure Sodium Potassium Chloride Carbon Dioxide Anion Gap BUN Creatinine Estim Creat Clear Calc Estimated GFR Glucose Calcium Magnesium Gwmrs-1-Dcpcqdoanks Alpha-1-AT Phenotype A.fumigatus Allerg IgE A.fumigatus IgE Conv Cl A. fumigatus Interp [place] Serum Ab [place] Serum IgG Ab Immunocap Total IgE Theophylline 11.7 IgG Cancelled IgG1 Cancelled IgG2 Cancelled IgG3 Cancelled IgG4 Cancelled IgE Cancelled Anti-Cycl Citrul Peptide Cancelled EROS Scrn Qualitative Cancelled EROS [place] Interp Cancelled ANCA Screen Cancelled c-ANCA Titer Cancelled p-ANCA Titer Cancelled Atypical p-ANCA Titer Cancelled VICKY-1 Antibody Cancelled Anti-Vicky-1 FEIA c/o 6.9 Cancelled EJ Antibody Cancelled OJ Antibody Cancelled Mi-2 Antibody Cancelled NXP-[address]-12 Antibody Cancelled Anti-PA-2 Beta Cancelled Anti-MDA5 Cancelled Myos P155/140 TIF1-g Ab Cancelled SS-A Antibody Cancelled SS-B Antibody Cancelled Sm (Gavin) Antibody Cancelled GROUND CREWMAN AIRCRAFT SUPPORT Antibody Cancelled SM/GROUND CREWMAN AIRCRAFT SUPPORT IgG Antibody Cancelled Scl-70 Antibody Cancelled Anti-DNA Antibody Cancelled Anti-Ribosomal Ab Cancelled Chromatin Antibody Cancelled Anti-SRP Antibody Cancelled Centromere B Antibody Cancelled Saccharo. viridis Ab Cancelled T. candidus Antibody Cancelled T. sacchari IgG Ab Cancelled T. vulgaris Antibody Cancelled T. vulgaris IgG Ab Cancelled Aspergillus flavus Ab Cancelled Aspergill fumigatus Ab Cancelled Aspergillus fum #1 Ab Cancelled A. fumigatus IgG Ab Cancelled Cancelled Cancelled Aspergillus niger Ab Cancelled A. pullulans Aller IgG Cancelled Micropolyspora faeni Ab Cancelled M. faeni IgG Ab Cancelled 12/03/24 12/04/24 12/04/24 22:28 04:22 04:49 WBC 16.3 H RBC 3.75 L Hgb 10.2 L Hct 33.3 L MCV 88.8 MCH 27.2 MCHC 30.6 L RDW 15.0 H Plt Count 363 MPV 9.6 Puncture Site Right radial ABG pH 7.446 ABG pCO2 51.1 H ABG pO2 108.2 H ABG PO2/FiO2 Ratio 3.86 ABG HCO3 34.4 H ABG O2 Saturation 98.1 ABG O2 Content 15.2 L ABG Base Excess 9.0 A-a Gradient 31.1 Oxyhemoglobin 97.8 Total Hemoglobin 10.9 L O2 Delivery Device Non-invasive vent O2 Liters/Min Rubber Mixer Vent Rate 14 FiO2 28 Expiratory Pressure 6 Inspiratory Pressure Not Reportable Sodium 138 137 Potassium 3.4 4.0 Chloride 97 L 96 L Carbon Dioxide 34 H 35 H Anion Gap 7 6 BUN 32 H 30 H Creatinine 0.96 0.86 Estim Creat Clear Calc 35 39 Estimated GFR 57 L > 60 Glucose 169 H 139 H Calcium 9.5 9.3 Magnesium 1.9 Pcrnk-3-Liusfnmjfxp Alpha-1-AT Phenotype A.fumigatus Allerg IgE A.fumigatus IgE Conv Cl A. fumigatus Interp [place] Serum Ab [place] Serum IgG Ab Immunocap Total IgE Theophylline IgG IgG1 IgG2 IgG3 IgG4 IgE Anti-Cycl Citrul Peptide EROS Scrn Qualitative EROS [place] Interp ANCA Screen c-ANCA Titer p-ANCA Titer Atypical p-ANCA Titer VICKY-1 Antibody Anti-Vicky-1 FEIA c/o 6.9 EJ Antibody OJ Antibody Mi-2 Antibody NXP-[address]-12 Antibody Anti-PA-2 Beta Anti-MDA5 Myos P155/140 TIF1-g Ab SS-A Antibody SS-B Antibody Sm (Gavin) Antibody GROUND [employer] SUPPORT Antibody SM/GROUND [employer] SUPPORT IgG Antibody Scl-70 Antibody Anti-DNA Antibody Anti-Ribosomal Ab Chromatin Antibody Anti-SRP Antibody Centromere B Antibody Saccharo. viridis Ab T. candidus Antibody T. sacchari IgG Ab T. vulgaris Antibody T. vulgaris IgG Ab Aspergillus flavus Ab Aspergill fumigatus Ab Aspergillus fum #1 Ab A. fumigatus IgG Ab Aspergillus niger Ab A. pullulans Aller IgG Micropolyspora faeni Ab M. faeni IgG Ab
[2024-12-04 11:29] LABS: NIL 0.01 IU/mL; Quantiferon TB Plus, 1T NEGATIVE (NEGATIVE); TB1-NIL 0.00 IU/mL; TB2-NIL 0.00 IU/mL
[2024-12-04 13:09] LABS: Anti-CCP Ab, IgG/IgA 7 units (0-19)
[2024-12-04 15:09] LABS: IgG, Subclass 1 336 mg/dL (248-810); IgG, Subclass 2 207 mg/dL (130-555); IgG, Subclass 3 60 mg/dL (15-102); IgG, Subclass 4 18 mg/dL (2-96); Immunoglobulin G, Qn 678 mg/dL (586-1602)
[2024-12-04 15:54] LABS: Pneumococcal Antigen Urine NOT DETECTED
--- NOTE | 2024-12-04 17:23 | PC.NURSE ---
Addendum entered by Kinsey Robles RN 12/04/24 18:19: Home medications sent with pt upon transfer. Original Note: This patient, Merle Vaca, was transferred to [facility] on 12/04/24 at 1713. Personal belongings sent with patient. Report given to FAUSTINA Madsen. Appropriate documentation sent with patient.
[2024-12-04] MEDS: MONTELUKAST SODIUM 10 MG TABLET PO (20:47)
[2024-12-05] VITALS (13 sets, daily range): BP systolic 123–135; BP diastolic 53–72; PULSE 61–100; RESP 18–20; TEMP 36.6–36.9; O2SAT 90–96
[2024-12-05 05:12] LABS: Alveolar/Arterial O2 Gradient 56.1 mmHg; Fractional Inspired Oxygen 28 %; HCO3 ABG 38.1 mEq/l (22.0-26.0); Oxygen Content ABG 15.9 %vol (16.0-22.0); Oxygen Saturation ABG 96.8 % (95.0-100.0); PCO2 ABG 50.9 mmHg (35.0-45.0); PO2 ABG 83.5 mmHg (80.0-100.0); PO2 FiO2 Ratio Arterial Blood 2.98 %
[2024-12-05 05:22] LABS: Liters per Minute 2.0 LPM; Modified Allen's Test Pass; Site Drawn RIGHT RADIAL
[2024-12-05] MEDS: SODIUM CHLOR 3% 15 ML NEB (RESPIRATORY THERAPY) 6 ML INHALATION (05:25)
[2024-12-05] MEDS: IPRATROPIUM 0.5 MG/ALBUTEROL SULFATE 2.5 MG AMPUL.NEB 3 ML INHALATION ×4 (05:25→20:28)
[2024-12-05] MEDS: MEROPENEM 1 GM in SODIUM CHLORIDE 0.9% IV 100 ML 200 ML IVPB ×2 (06:12→17:07)
[2024-12-05 07:59] LABS: NT Pro B Type Natriuretic Pept 99 pg/mL (19.9-100)
[2024-12-05] MEDS: guaiFENesin 12 HR 600 MG TABCR 1200 MG PO ×2 (08:52→20:17)
[2024-12-05] MEDS: DIGOXIN TAB 125 MCG TABLET PO (08:52)
[2024-12-05] MEDS: ROSUVASTATIN 20 MG TABLET 40 MG PO (08:52)
[2024-12-05] MEDS: ISOSORBIDE MONONITRATE 30 MG TAB.ER.24H PO (08:53)
[2024-12-05] MEDS: CLOPIDOGREL BISULFATE 75 MG TABLET PO (08:53)
[2024-12-05] MEDS: PANTOPRAZOLE 40 MG TABLET PO ×2 (08:53→20:17)
[2024-12-05] MEDS: ENOXAPARIN 40 MG/0.4 ML SYRINGE SUB-Q (08:54)
[2024-12-05] MEDS: THEOPHYLLINE 400 MG 1 EACH BY MOUTH (08:56)
--- NOTE | 2024-12-05 09:11 | P.PNPL_ITS ---
Progress Note: A&P Assessment and Plan (1) Bronchiectasis: Code(s): J47.9 - Bronchiectasis, uncomplicated Status: Acute Assessment and Plan: Regarding her bronchiectasis patient Was admitted to the hospital with what sounds like hypercarbic respiratory failure 2 years ago. She was treated with BiPAP and told she had bronchiectasis and discharged on home noninvasive ventilator. As an outpatient she saw a claims vice president at [facility] after this and was told she had bronchiectasis. She is unsure if she had a complete workup but apparently they had a case conference with multiple subspecialists there. At baseline she is on theophylline 400 today, trelegy 100, , azithromycin 500 3 times a week, vest therapy twice a day, Dupixent injection every 2 weeks. 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 Patient's last prednisone use was 18 months ago. At baseline the patient says she can walk around her house but then has respiratory limitations. She uses no oxygen at rest, 2 L with activity and 2 L bleed in at night. She is a never smoker and never exposed to secondhand smoke. Her father of respiratory issues at age 45 and thinks he had the same condition as her. currently the patient has 4 week continued respiratory deterioration with increased cough, increased phlegm production and change in phlegm production with no fever or hemoptysis. She presents with a leukocytosis and a CT scan with bronchiectasis and tree-in-bud infiltrates throughout. COVID influenza and RSV RT PCR negative, MRSA negative. She has no hypercarbic respiratory failure. Etiology of current clinical deterioration includes: Flare of bronchiectasis, pneumonia, bronchitis, Asthma exacerbation. plan: Improved with antibiotics, bronchodilators and steroids. Will continue Levaquin and meropenem day 1 of both, she received 1 day of ceftriaxone and azithromycin on 12/01, so day 2 total antibiotics. Sputum for bacterial culture is pending. I will send a respiratory pathogen panel. I will send serologies looking for an autoimmune disease process, immunodeficiency as an etiology to the patient's bronchiectasis. I will send total IgG, IgM, IgA, IgE, IgG subclass, Aspergillus IgG, Aspergillus IgE, EROS screen and rheumatoid factor. I will check an alpha 1 anti trypsin. I will send sputum for AFB q.a.m. x3 looking for atypical mycobacterium. I am not concerned about mycobacterium tuberculosis and from my perspective can discontinue respiratory isolation. QuantiFERON gold is pending. I will decrease her Solu-Medrol to 20 mg IV q.6 hours. Continue DuoNebs q.6 hours, increase guaifenesin to 1200 mg p.o. b.i.d., I will continue her theophylline 400 mg q.day and will give her her home dose. 12/03/24: Patient says she is feeling much better than when she was admitted and slept better last night. Overall she feels she is about 80% back to her normal. Her phlegm production has decreased. When I enter the room she was on 2 L nasal. I placed her to room air and her saturations were 93%. Her white blood cell count is 19.6, creatinine is 0.92, her procalcitonin is 0.1. Sputum Gram stain with Gram-positive cocci. Serologies: QuantiFERON gold negative. Rheumatoid factor 19.4. IgA level 108, IgM level 86. IgG total 678, IgG class 05/31/2035, IgG class 06/30/2006, IgG class 360, IgG class 418. Anti CCP 7. Anca screen negative, All others pending. Plan: patient with wheezes today. I will continue Solu-Medrol 20 IV q.6, I will continue Levaquin and meropenem, both day 2 for bacterial infection. I will continue DuoNebs q.6, guaifenesin 1200 p.o. b.i.d., vest therapy, Cornet flutter valve treatment to help sputum expectoration. Will continue theophylline 400, theophylline level drawn today.. sputum with Gram- positive cocci with many white blood cells. Sputum for AFB x3 pending. Legionella urine antigen, pneumococcal urine antigen, mycoplasma IgM and respiratory pathogen panel pending. 12/04/24: Patient tells me she continues to improve. Is difficult to quantitate. She says she has 50% back to her normal. She denies any phlegm production or hemoptysis. Her cough is improved. She is afebrile. When I enter the room she was on 2 L with saturation 99%. I turned her to room air and after 8 minutes her saturations were 94%. White blood cell count 16.3, creatinine 0.86. Plan: Overall the patient is proving. She has less wheezing today. I will change her Solu-Medrol 20 mg IV q.6 hours to prednisone 40 q.day. I will continue Levaquin and meropenem, both day 3 for bacterial infection. I will continue DuoNebs q.6, guaifenesin 1200 p.o. b.i.d., vest therapy, Cornet flutter valve treatment to help sputum expectoration. Will continue theophylline 400, theophylline level 11.7, good. sputum with Gram-positive cocci with many white blood cells. Sputum for AFB x2 in lab and pending. Legionella urine antigen, pneumococcal urine antigen, mycoplasma IgM and respiratory pathogen panel pending. 12/05/2024: Patient tells me she continues to improve. She is 55-60% back to her baseline. She denies cough and has 0 phlegm. She denies fever, chills, rigors. She is afebrile. When I enter the room she was on 2 L nasal cannula saturations 99%. I changed her to room air her saturations were 91%. Plan: Overall the patient is improving. Continue prednisone 40 q.day (day 5 steroids). I will continue Levaquin and meropenem, both day 4 for bacterial infection. I will continue DuoNebs q.6, guaifenesin 1200 p.o. b.i.d., vest therapy, Cornet flutter valve treatment to help sputum expectoration. Will continue theophylline 400, theophylline level 11.7, good. sputum with pseudomonas aeruginosa. Sputum for AFB x2 in lab and pending. Legionella urine antigen, pneumococcal urine antigen negative, mycoplasma IgM and respiratory pathogen panel pending. Will follow with you. (2) Acute on chronic respiratory failure with hypoxia and hypercapnia: Code(s): J96.21 - Acute and chronic respiratory failure with hypoxia; J96.22 - Acute and chronic respiratory failure with hypercapnia Status: Acute Assessment and Plan: Patient tells me she has a history of hypercarbic respiratory failure and requires BiPAP through [facility] with 2 L bleed in at night. Patient tells me she wore hospital BiPAP rate of 14 pressures 12/6, rise of 1, inspiratory time 1.0, 32% FiO2 and that the air delivery felt fine but the mask was more uncomfortable. Plan: I will continue her current hospital settings as above with 2 L bleed in. I will obtain a download from [employer]. I recommended the patient bring in her home machine with an over the mouth under the nose mask that is more comfortable for her. 12/03/24: Patient wore the hospital noninvasive ventilator with BiPAP rate of 14 pressures 12/6 and 40% and said she slept well. I have obtained a download from [employer] From 07/09/2024 through 09/15/2024 and the patient is on TTV-VAPS- AE rate is auto, tidal volume 450, EPAP minimum 6, EPAP maximum 15, pressure support 4, pressure support maximum 25, speed of 3, with 2 L bleed in. Uses days 07/18/2029, usage average 3 hours and 28 minutes. Median respiratory rate 21, median tidal volume 450. Median EPAP 6, median IPAP 12.5, median minute ventilation 8.1. Median leak 12.5. I interpret this download as poor compliance, adequate pressures and low leak. Plan: to better match her home settings I have placed the patient on AVAPS rate of 14, tidal volume 450, EPAP 6, minimal inspiratory pressure 7, maximal inspiratory pressure 25, inspiratory time 1.0, rise of 5 which is are slowest and 28% FiO2. I will obtain an overnight oximetry and an ABG prior to removal on these settings. I recommended the patient bring in her home machine so that we can use this while she is in the hospital. 12/04/24; Patient wore the hospital noninvasive ventilator with the AVAPS mode with rate of 14, tidal volume 450, EPAP 6, minimal inspiratory pressure 7, maximal inspiratory pressure 25, 28% FiO2. Patient had a overnight oximetry on these settings with recording duration of 7 hours and 2 minutes, average saturation 97%, low saturation 81%, time with saturation less than or equal to 88% was 1.0 minutes, oxygen desaturation index 1.5. Patient had ABG prior to removal of the mask with pH of 7.45/51/108. Patient states her home machine is more comfortable. Plan: current hospital AVAPS setting provide adequate oxygenation and ventilation. I told the patient to bring her home machine in as it is more comfortable. 12/05/24: Patient wore her home machine with 2 L bleed in and said she slept well. Patient an overnight oximetry with recording duration 7 hours and 59 minutes. Average saturation 92%. Low saturation 54%. Time with saturation less than or equal to 88% was 66 minutes. Oxygen desaturation index 9.0. Patient had ABG prior to removal with pH of 7.49/51/84. Plan: Home AVAPS settings provide adequate ventilation. I will increase her bleed in to 3 L and repeat an overnight oximetry on 3 L tonight. Subjective Date/time seen: 12/05/24 09:11 Interval history: 12/02/2024: This is a new pulmonary consult for COPD 74-year-old with a history of asthma, bronchiectasis with chronic hypoxemic and hypercarbic respiratory failure on supplemental oxygen and noninvasive ventilation at night. regarding patient's asthma she was diagnosed as a young child and remembers having asthma all her life. She has been on inhaled medicines all her life. she has been on Dupixent for about 1 and half years and does not know if this is for her asthma. Regarding her bronchiectasis patient Patient was diagnosed at least [address] scan. She was admitted to the hospital with what sounds like hypercarbic respiratory failure 2 years ago. She was treated with BiPAP and told she had bronchiectasis and discharged on home noninvasive ventilator. As an outpatient she saw a claims vice president at [facility] after this and was told she had bronchiectasis. She is unsure if she had a complete workup but apparently they had a case conference with multiple subspecialists there. The patient tells me she is chronically colonized with Pseudomonas. She is not familiar with the term Aspergillus or ABPA. At baseline she is on theophylline 400 today, trelegy 100, , azithromycin 500 3 times a week, vest therapy twice a day, Dupixent injection every 2 weeks. Patient's last prednisone use was 18 months ago. At baseline the patient says she can walk around her house but then has respiratory limitations. She uses no oxygen at rest, 2 L with activity and 2 L bleed in at night. She is a never smoker and never exposed to secondhand smoke. Her father of respiratory issues at age 45 and thinks he had the same condition as her. she has 11 siblings none of them have this respiratory condition. She has 2 children, and one is a 60 YO daughter and she has the same breathing condition but is not sure if she has bronchiectasis. this daughter has 2 healthy children. Approximately 1 month ago the patient was fatigued, had worsening shortness of breath and increased phlegm and was given a course of Levaquin and Solu-Medrol by her PCP. Patient showed no improvement and about 2 weeks ago was prescribed another dose of Medrol and Levaquin. Patient states for the last month she has been run down taking care of her who has had a stroke. For 1 month she has had worsening cough, increased phlegm production the phlegm has changed and is times as pudding consistency and very slimy. It is yellow in color with no blood. She denies fever, chills, rigors. She denies chronic weight loss. Patient was seen at urgent care on 12/01/24 and then in the emergency department with a blood pressure of 153/90, heart rate 78, respiratory is 20, on 3 L nasal cannula saturation 98%. She was labored, had decreased breath sounds and wheezes. Her white blood cell count was 18.7 with 0.2% eosinophils, creatinine 1.17, BNP 424, COVID, influenza, RSV RT PCR assay negative, MRSA swab negative, ABG on 3 L nasal cannula 7.47/48/54. CT scan of the chest showed diffuse panlobular cylindrical bronchiectasis with bilateral diffuse tree-in-bud infiltrates. There were no consolidations, no pleural disease, no bullous emphysema, no interstitial lung disease. Patient was initiated on Solu-Medrol, bronchodilators, ceftriaxone and azithromycin. Ceftriaxone and azithromycin were changed to Levaquin and meropenem. 12/02/2024: Patient says she is feeling better. She says that her cough and phlegm production her 80% back to her normal. She was placed on BiPAP last night and said that the air delivery felt the same but the mask was more comfortable than her home mask. She is afebrile. Currently she is on 2.5 L nasal cannula saturations 94-95%. White blood cell count 17.1, creatinine 0.96. 12/03/24: Patient says she is feeling much better than when she was admitted and slept better last night. Overall she feels she is about 80% back to her normal. Her phlegm production has decreased. When I enter the room she was on 2 L nasal. I placed her to room air and her saturations were 93%. Her white blood cell count is 19.6, creatinine is 0.92, her procalcitonin is 0.1. Sputum Gram stain with Gram-positive cocci. Patient wore the [facility] noninvasive ventilator with BiPAP rate of 14 pressures 12/6 and 40% and said she slept well. I have obtained a download from [facility] From 07/09/2024 through 09/15/2024 and the patient is on TTV-VAPS- AE rate is auto, tidal volume 450, EPAP minimum 6, EPAP maximum 15, pressure support 4, pressure support maximum 25, speed of 3, with 2 L bleed in. Uses days 07/18/2029, usage average 3 hours and 28 minutes. Median respiratory rate 21, median tidal volume 450. Median EPAP 6, median IPAP 12.5, median minute ventilation 8.1. Median leak 12.5. I interpret this download as poor compliance, adequate pressures and low leak. 12/04/24: Patient tells me she continues to improve. Is difficult to quantitate. She says she has 50% back to her normal. She denies any phlegm production or hemoptysis. Her cough is improved. She is afebrile. When I enter the room she was on 2 L with saturation 99%. I turned her to room air and after 8 minutes her saturations were 94%. White blood cell count 16.3, creatinine 0.86. Patient wore the [facility] noninvasive ventilator with the AVAPS mode with rate of 14, tidal volume 450, EPAP 6, minimal inspiratory pressure 7, maximal inspiratory pressure 25, 28% FiO2. Patient had a overnight oximetry on these settings with recording duration of 7 hours and 2 minutes, average saturation 97%, low saturation 81%, time with saturation less than or equal to 88% was 1.0 minutes, oxygen desaturation index 1.5. Patient had ABG prior to removal of the mask with pH of 7.45/51/108. 12/05/2024: Patient tells me she continues to improve. She is 55-60% back to her baseline. She denies cough and has 0 phlegm. She denies fever, chills, rigors. She is afebrile. When I enter the room she was on 2 L nasal cannula saturations 99%. I changed her to room air her saturations were 91%. Patient wore her home machine with 2 L bleed in and said she slept well. Patient an overnight oximetry with recording duration 7 hours and 59 minutes. Average saturation 92%. Low saturation 54%. Time with saturation less than or equal to 88% was 66 minutes. Oxygen desaturation index 9.0. Patient had ABG prior to removal with pH of 7.49/51/84. DATA: 12/01/24: EXAMINATION: CT diagnostic chest wo con INDICATION: nodule vs infection COMPARISON: X-ray chest, same date. FINDINGS: CHEST: Thoracic aorta: Borderline ectasia of the ascending aorta measuring up to 3.9 cm. Moderate atherosclerotic calcifications. Visualization of the aortic wall as can be seen with anemia. Lung parenchyma and airways: Significant biapical pleural scarring. Tree-in-bud opacities in all lung lobes. Widespread cystic and cylindrical bronchiectasis. Several areas of the cystic bronchiectasis contain fluid or aerated secretions. Thoracic inlet, axillae and chest wall: No thyroid or soft tissue mass. No axillary lymphadenopathy. Mediastinum: Dilated central pulmonary arteries as can be seen with pulmonary hypertension. Large hiatal hernia containing approximately one half of the stomach. Heart and pericardium: Mild cardiomegaly. Aortic valve and mitral calcifications Trace pericardial fluid. Coronary artery calcifications: Mild. Pleura: Fat-containing right posterior diaphragmatic hernia. Upper abdomen: No significant finding. Thoracic bones: No acute osseous finding in the chest. IMPRESSION: Diffuse tree-in-bud opacities with severe bronchiectasis, concerning for atypical infection, including but not limited to: tuberculosis, MAC, fungal infection, and bacterial bronchopneumonia. Chronic aspiration considered less likely given the distribution. Mild cardiomegaly. Trace pericardial effusion. Results reported telephonically to Debbie Mac RN by Dr. Willson at 10:29 PM on 12/01/2024. Review of Systems Constitutional: Constitutional: Reports no additional constitutional complaints Eyes: Eyes: Reports no additional eye complaints ENT: Reports system reviewed and no additional complaints, except as documented Cardiovascular: Cardiovascular: Reports no additional cardiovascular complaints Respiratory: Respiratory: Reports no additional respiratory complaints Gastrointestinal: Gastrointestinal: Reports no additional gastrointestinal complaints Musculoskeletal: Musculoskeletal: Reports no additional musculoskeletal complaints Neurologic: Reports system reviewed and no additional complaints, except as documented Psychiatric: Psychiatric: Reports no additional psychiatric complaints Endocrine: Endocrine: Reports no additional endocrine complaints Hematologic/Lymphatic: Hematologic/Lymphatic: Reports no additional hematologic/lymphatic complaints Allergic/Immunologic: Allergic/Immunologic: Reports no additional allergic/immunologic complaints Exam Narrative: Comfortable Const: General: cooperative, healthy appearing and comfortable Orientation/consciousness: oriented to person, oriented to place and oriented to time HENMT: Head: normal to inspection Ears: hearing grossly normal bilaterally Eyes: General: appearance normal, both eyes and all related structures Neck: Neck: normal visual inspection Chest: Chest palpation & inspection: normal inspection of the chest Resp: Effort & Inspection: normal respiratory effort and able to speak in complete sentences Auscultation: crackles, no rales, no rhonchi, wheezes and lung sounds not diminished Other: End Expiratory wheezes today Cardio: Jugular venous distension: no JVD GI: Inspection: normal to inspection Skin: General skin exam: normal color Neuro: General: oriented to person, oriented to place and oriented to time Extrem: General: normal to inspection Psych: Appearance: grossly normal Objective Data Vital Signs Vital Signs: Vital Signs - 24 hr 12/04/24 10:00 12/04/24 10:30 12/04/24 13:27 Temperature Pulse Rate 70 77 Respiratory Rate 18 Blood Pressure Pulse Oximetry Oxygen Delivery Room Air Oxygen Flow Rate Fraction of Inspired Oxygen 12/04/24 13:39 12/04/24 16:32 12/04/24 20:00 Temperature 36.9 C Pulse Rate 77 68 Respiratory Rate 18 20 Blood Pressure 131/57 L Pulse Oximetry 94 94 Oxygen Delivery Nasal Cannula Oxygen Flow Rate 2 Fraction of Inspired Oxygen 12/04/24 20:58 12/04/24 20:59 12/04/24 21:02 Temperature Pulse Rate 71 71 78 Respiratory Rate 20 20 Blood Pressure Pulse Oximetry 99 100 Oxygen Delivery Nasal Cannula BiPAP Oxygen Flow Rate 1 Fraction of Inspired Oxygen 24 12/05/24 00:00 12/05/24 03:21 12/05/24 06:51 Temperature 36.9 C 36.7 C Pulse Rate 75 61 Respiratory Rate 18 18 Blood Pressure 130/69 135/72 Pulse Oximetry 96 92 Oxygen Delivery BiPAP Oxygen Flow Rate Fraction of Inspired Oxygen 12/05/24 08:22 12/05/24 08:22 12/05/24 08:36 Temperature Pulse Rate 62 62 70 Respiratory Rate 20 20 20 Blood Pressure Pulse Oximetry 92 Oxygen Delivery Room Air Oxygen Flow Rate Fraction of Inspired Oxygen 12/05/24 08:52 Temperature Pulse Rate 70 Respiratory Rate Blood Pressure Pulse Oximetry Oxygen Delivery Oxygen Flow Rate Fraction of Inspired Oxygen Intake/Output Intake/Output: Intake & Output 12/02/24 12/03/24 12/04/24 12/05/24 23:59 23:59 23:59 23:59 Intake Total 1340 1790 1820 250 Output Total 1600 1025 1000 Balance -260 765 820 250 Meds/Results Medications: Active Medications Generic Name Dose Route Start Last Admin Trade Name Freq PRN Reason Stop Dose Admin Acetaminophen 650 mg 12/01/24 19:41 Acetaminophen 325 Mg Tablet PO Q6H PRN Mild Pain (1-3) or Fever Albuterol/Ipratropium 3 ml 12/01/24 20:00 12/05/24 08:21 Ipratropium 0.5 Mg/Albuterol Sulfate 2.5 Mg Ampul.Neb 3 Ml INHALATION 3 ml Q6HRT [place] Administration Benzonatate 100 mg 12/01/24 19:40 Benzonatate 100 Mg Capsule PO TID PRN Cough Clopidogrel Bisulfate 75 mg 12/02/24 09:00 12/05/24 08:53 Clopidogrel Bisulfate 75 Mg Tablet PO 75 mg DAILY [place] Administration Digoxin 125 mcg 12/02/24 09:00 12/05/24 08:52 Digoxin Tab 125 Mcg Tablet PO 125 mcg DAILY [place] Administration Enoxaparin Sodium 40 mg 12/02/24 09:00 12/05/24 08:54 Enoxaparin 40 Mg/0.4 Ml Syringe SUB-Q 40 mg DAILY [place] Administration Ergocalciferol 1,250 mcg 12/12/24 09:00 Ergocalciferol (Vitamin D2) 1,250 Mcg (50,000 Units) Capsule PO [id number] CHIAN Guaifenesin 1,200 mg 12/02/24 21:00 12/05/24 08:52 Guaifenesin 12 Hr 600 Mg Tabcr PO 1,200 mg Q12HR [place] Administration Hydralazine HCl 50 mg 12/02/24 09:00 12/05/24 08:53 Hydralazine Hcl 50 Mg Tablet PO 50 mg DAILY [place] Administration Hydrochlorothiazide 25 mg 12/02/24 09:00 12/05/24 08:53 Hydrochlorothiazide 25 Mg Tablet PO 25 mg DAILY [place] Administration Levofloxacin/Dextrose 750 mg in 150 mls @ 100 mls/hr 12/02/24 00:00 12/05/24 01:07 Levaquin 750 Mg/D5w 150 Ml IVPB Infused Q48H [place] Infusion Meropenem 1 gm/ Sodium 100 mls @ 200 mls/hr 12/02/24 18:00 12/05/24 06:42 Chloride IVPB Infused Q12H [place] Infusion Isosorbide Mononitrate 30 mg 12/02/24 09:00 12/05/24 08:53 Isosorbide Mononitrate 30 Mg Tab.Er.24h PO 30 mg DAILY [place] Administration Montelukast Sodium 10 mg 12/01/24 23:15 12/04/24 20:47 Montelukast Sodium 10 Mg Tablet PO 10 mg QHS [place] Administration Huber-24 Er 400mg 1 each 12/02/24 09:00 12/05/24 08:56 Capsule *Use Home BY MOUTH 01/01/25 08:59 1 each Supply* DAILY [place] Administration Pantoprazole Sodium 40 mg 12/02/24 09:00 12/05/24 08:53 Pantoprazole 40 Mg Tablet PO 40 mg Q12HR [place] Administration Prednisone 40 mg 12/05/24 08:00 12/05/24 08:51 Prednisone 20 Mg Tablet PO 40 mg DAILY@0800 [place] Administration Prochlorperazine Edisylate 10 mg 12/01/24 19:41 Prochlorperazine Edisylate 10 Mg/2 Ml Vial IV PUSH Q6H PRN Nausea And Vomiting Rosuvastatin Calcium 40 mg 12/02/24 09:00 12/05/24 08:52 Rosuvastatin 20 Mg Tablet PO 40 mg DAILY [place] Administration Radiology Results: ITS Impressions Chest CT 12/01/24 22:09 IMPRESSION: Diffuse tree-in-bud opacities with severe bronchiectasis, concerning for atypical infection, including but not limited to: tuberculosis, MAC, fungal infection, and bacterial bronchopneumonia. Chronic aspiration considered less l ikely given the distribution. Mild cardiomegaly. Trace pericardial effusion. Results reported telephonically to Debbie Mac RN by Dr. Willson at 10:29 PM on 12/01/2024. Chest X-Ray 12/05/24 07:42 Impression: COPD or other chronic interstitial change. Possible mild haziness right lung base. Correlate for pneumonia or minimal pulmonary edema. Stable cardiomegaly. Labs Labs: Laboratory Results - last 24 hr 12/02/24 12/02/24 12/03/24 06:55 08:46 06:07 Puncture Site ABG pH ABG pCO2 ABG pO2 ABG PO2/FiO2 Ratio ABG HCO3 ABG O2 Saturation ABG O2 Content ABG Base Excess A-a Gradient Oxyhemoglobin Total Hemoglobin O2 Delivery Device O2 Liters/Min FiO2 Expiratory Pressure Inspiratory Pressure NT-Pro-B Natriuret Pep A. niger Allergen % Cancelled A. niger Dunlap Class Cancelled Vancomycin Trough IgG 678 IgG Subclass 1 336 IgG Subclass 2 207 IgG Subclass 3 60 IgG Subclass 4 18 CCP IgG/IgA Ab 7 c-ANCA Antibody <1:20 Atypical p-ANCA <1:20 p-ANCA Antibody <1:20 Urine Pneumococcal Ag Not detected TB Test (QFT) Gold Plus Negative TB Test (QFT) Nil 0.01 TB Test Mitogen - Nil 1.03 TB Test Ag - Nil 1 0.00 TB Test Ag - Nil 2 0.00 Miscellaneous Test Cancelled 12/04/24 12/05/24 12/05/24 19:56 04:51 07:33 Puncture Site Right radial ABG pH 7.492 H ABG pCO2 50.9 H ABG pO2 83.5 ABG PO2/FiO2 Ratio 2.98 ABG HCO3 38.1 H ABG O2 Saturation 96.8 ABG O2 Content 15.9 L ABG Base Excess 13.0 A-a Gradient 56.1 Oxyhemoglobin 96.1 Total Hemoglobin 11.7 L O2 Delivery Device Bipap O2 Liters/Min 2.0 FiO2 28 Expiratory Pressure Not Reportable Inspiratory Pressure Not Reportable NT-Pro-B Natriuret Pep 99 A. niger Allergen % A. niger [place] Class Vancomycin Trough < 5.0 L IgG IgG Subclass 1 IgG Subclass 2 IgG Subclass 3 IgG Subclass 4 CCP IgG/IgA Ab c-ANCA Antibody Atypical p-ANCA p-ANCA Antibody Urine Pneumococcal Ag TB Test (QFT) Gold Plus TB Test (QFT) Nil TB Test Mitogen - Nil TB Test Ag - Nil 1 TB Test Ag - Nil 2 Miscellaneous Test
[2024-12-05 09:54] LABS: Procalcitonin 0.1 ng/mL
--- NOTE | 2024-12-05 10:09 | P.PNIM_ITS ---
Progress Note: A&P Assessment and Plan (1) Acute exacerbation of chronic obstructive pulmonary disease: Code(s): J44.1 - Chronic obstructive pulmonary disease with (acute) exacerbation Status: Acute (2) CAP (community acquired pneumonia): Qualifiers: Laterality: right Lung location: lower lobe of lung Qualified Code(s): J18.9 - Pneumonia, unspecified organism Code(s): J18.9 - Pneumonia, unspecified organism Status: Acute (3) Acute on chronic hypoxic respiratory failure: Code(s): J96.21 - Acute and chronic respiratory failure with hypoxia Status: Acute (4) Acute on chronic respiratory failure with hypoxia and hypercapnia: Code(s): J96.21 - Acute and chronic respiratory failure with hypoxia; J96.22 - Acute and chronic respiratory failure with hypercapnia Status: Acute (5) Hypertension: Code(s): I10 - Essential (primary) hypertension Status: Chronic Plan (1) Acute on chronic respiratory failure with hypoxia and hypercapnia: Code(s): J96.21 - Acute and chronic respiratory failure with hypoxia; J96.22 - Acute and chronic respiratory failure with hypercapnia Status: Acute Assessment and Plan: Patient presents with SOB. ABG - 7.46/48/54 on 3L CXR concerning for infection and possible pulmonary nodule CT chest without contrast showing diffuse tree-in-bud opacities with severe bronchiectasis, concerning for atypical infection, mild cardiomegaly and trace pericardial effusion. Acute on chronic respiratory failure secondary to COPD exacerbation and atypical pneumonia with underlying bronchiectasis. Started on steroids, bronchodilators and abx. Pulmonary consulted and appreciate their input. Able to come off bipap. Able to wean down on oxygen Continue bipap as needed in the night, Patient is on room air daytime (2) CAP (community acquired pneumonia): Qualifiers: Laterality: right Lung location: lower lobe of lung Qualified Code(s): J18.9 - Pneumonia, unspecified organism Code(s): J18.9 - Pneumonia, unspecified organism Status: Acute Assessment and Plan: Imaging as above. She did not meet SIRS criteria. She failed 2 course of Levaquin prior to admission. Started on ceftriaxone and azithromycin in the ED but changed to cefepime, azithromycin, and vancomycin then changed to Meropenem for pseudomonal coverage MRSA nasal swab negative so Vancomycin discontinued. Azithro stopped and Levaquin added for atypical coverage COVID, RSV and influenza PCR negative. Respiratory viral panel ordered. BCx NGTD Sputum culture growing gram positive cocci AFB Sputum negative to date. Mycoplasma, Legionella Ag, pneumococcal Ag ordered Aspergillus testing and testing for connective tissue disease sent WBC higher but felt related to steroids. Continue Levaquin and Meropenem. Pulmonology following, continue Levaquin and meropenem, both day 3 for bacterial infection. (3) COPD exacerbation: Code(s): J44.1 - Chronic obstructive pulmonary disease with (acute) exacerbation Status: Inactive Assessment and Plan: As above. Having some wheezing. On Huber-24 and level pending received Solu-Medrol. Continue prednisone 40 q.day (day 5 steroids). Continue abx, nebs and steroids. Wean O2 as toelrated (4) Hypertension: Code(s): I10 - Essential (primary) hypertension Status: Chronic Assessment and Plan: Patient's blood pressure was reviewed on 12/03 Blood pressure remains well controlled. Will continue to monitor (5) Bronchiectasis: Code(s): J47.9 - Bronchiectasis, uncomplicated Status: Acute Assessment and Plan: Patient with bronchiectasis and has has asthma since childhood. RF mildly elevated at 19. IgG slightly low at 670. The remainder of the workup pending. Followup on results Subjective Date/time seen: 12/05/24 10:09 Interval history: I saw exam patient today, patient continue to improve. Patient still has cough with scant phlegm. Denies chest pain abdomen pain nausea vomiting diarrhea Objective Data Vital Signs Vital Signs: Vital Signs - 24 hr 12/04/24 10:30 12/04/24 13:27 12/04/24 13:39 Temperature Pulse Rate 77 77 Respiratory Rate 18 18 Blood Pressure Pulse Oximetry Oxygen Delivery Room Air Oxygen Flow Rate Fraction of Inspired Oxygen 12/04/24 16:32 12/04/24 20:00 12/04/24 20:58 Temperature 98.5 F Pulse Rate 68 71 Respiratory Rate 20 20 Blood Pressure 131/57 L Pulse Oximetry 94 94 99 Oxygen Delivery Nasal Cannula Nasal Cannula Oxygen Flow Rate 2 1 Fraction of Inspired Oxygen 24 12/04/24 20:59 12/04/24 21:02 12/05/24 00:00 Temperature 98.5 F Pulse Rate 71 78 75 Respiratory Rate 20 18 Blood Pressure 130/69 Pulse Oximetry 100 96 Oxygen Delivery BiPAP Oxygen Flow Rate Fraction of Inspired Oxygen 12/05/24 03:21 12/05/24 06:51 12/05/24 08:22 Temperature 98.0 F Pulse Rate 61 62 Respiratory Rate 18 20 Blood Pressure 135/72 Pulse Oximetry 92 92 Oxygen Delivery BiPAP Room Air Oxygen Flow Rate Fraction of Inspired Oxygen 12/05/24 08:22 12/05/24 08:36 12/05/24 08:52 Temperature Pulse Rate 62 70 70 Respiratory Rate 20 20 Blood Pressure Pulse Oximetry Oxygen Delivery Oxygen Flow Rate Fraction of Inspired Oxygen Intake/Output Intake/Output: Intake & Output 12/02/24 12/03/24 12/04/24 12/05/24 23:59 23:59 23:59 23:59 Intake Total 1340 1790 1820 370 Output Total 1600 1025 1000 Balance -260 765 820 370 Meds/Results Medications: Active Medications Generic Name Dose Route Start Last Admin Trade Name Freq PRN Reason Stop Dose Admin Acetaminophen 650 mg 12/01/24 19:41 Acetaminophen 325 Mg Tablet PO Q6H PRN Mild Pain (1-3) or Fever Albuterol/Ipratropium 3 ml 12/01/24 20:00 12/05/24 08:21 Ipratropium 0.5 Mg/Albuterol Sulfate 2.5 Mg Ampul.Neb 3 Ml INHALATION 3 ml Q6HRT [place] Administration Benzonatate 100 mg 12/01/24 19:40 Benzonatate 100 Mg Capsule PO TID PRN Cough Clopidogrel Bisulfate 75 mg 12/02/24 09:00 12/05/24 08:53 Clopidogrel Bisulfate 75 Mg Tablet PO 75 mg DAILY [place] Administration Digoxin 125 mcg 12/02/24 09:00 12/05/24 08:52 Digoxin Tab 125 Mcg Tablet PO 125 mcg DAILY [place] Administration Enoxaparin Sodium 40 mg 12/02/24 09:00 12/05/24 08:54 Enoxaparin 40 Mg/0.4 Ml Syringe SUB-Q 40 mg DAILY [place] Administration Ergocalciferol 1,250 mcg 12/12/24 09:00 Ergocalciferol (Vitamin D2) 1,250 Mcg (50,000 Units) Capsule PO [id number] [place] Guaifenesin 1,200 mg 12/02/24 21:00 12/05/24 08:52 Guaifenesin 12 Hr 600 Mg Tabcr PO 1,200 mg Q12HR [place] Administration Hydralazine HCl 50 mg 12/02/24 09:00 12/05/24 08:53 Hydralazine Hcl 50 Mg Tablet PO 50 mg DAILY [place] Administration Hydrochlorothiazide 25 mg 12/02/24 09:00 12/05/24 08:53 Hydrochlorothiazide 25 Mg Tablet PO 25 mg DAILY [place] Administration Levofloxacin/Dextrose 750 mg in 150 mls @ 100 mls/hr 12/02/24 00:00 12/05/24 01:07 Levaquin 750 Mg/D5w 150 Ml IVPB Infused Q48H [place] Infusion Meropenem 1 gm/ Sodium 100 mls @ 200 mls/hr 12/02/24 18:00 12/05/24 06:42 Chloride IVPB Infused Q12H [place] Infusion Isosorbide Mononitrate 30 mg 12/02/24 09:00 12/05/24 08:53 Isosorbide Mononitrate 30 Mg Tab.Er.24h PO 30 mg DAILY [place] Administration Montelukast Sodium 10 mg 12/01/24 23:15 12/04/24 20:47 Montelukast Sodium 10 Mg Tablet PO 10 mg QHS [place] Administration Huber-24 Er 400mg 1 each 12/02/24 09:00 12/05/24 08:56 Capsule *Use Home BY MOUTH 01/01/25 08:59 1 each Supply* DAILY [place] Administration Pantoprazole Sodium 40 mg 12/02/24 09:00 12/05/24 08:53 Pantoprazole 40 Mg Tablet PO 40 mg Q12HR [place] Administration Prednisone 40 mg 12/05/24 08:00 12/05/24 08:51 Prednisone 20 Mg Tablet PO 40 mg DAILY@0800 [place] Administration Prochlorperazine Edisylate 10 mg 12/01/24 19:41 Prochlorperazine Edisylate 10 Mg/2 Ml Vial IV PUSH Q6H PRN Nausea And Vomiting Rosuvastatin Calcium 40 mg 12/02/24 09:00 12/05/24 08:52 Rosuvastatin 20 Mg Tablet PO 40 mg DAILY [place] Administration Radiology Results: ITS Impressions Chest CT 12/01/24 22:09 IMPRESSION: Diffuse tree-in-bud opacities with severe bronchiectasis, concerning for atypical infection, including but not limited to: tuberculosis, MAC, fungal infection, and bacterial bronchopneumonia. Chronic aspiration considered less likely given the distribution. Mild cardiomegaly. Trace pericardial effusion. Results reported telephonically to Debbie Mac RN by Dr. Willson at 10:29 PM on 12/01/2024. Chest X-Ray 12/05/24 07:42 Impression: COPD or other chronic interstitial change. Possible mild haziness right lung base. Correlate for pneumonia or minimal pulmonary edema. Stable cardiomegaly. Labs Labs: Laboratory Results - last 24 hr 12/02/24 12/02/24 12/03/24 06:55 08:46 06:07 Puncture Site ABG pH ABG pCO2 ABG pO2 ABG PO2/FiO2 Ratio ABG HCO3 ABG O2 Saturation ABG O2 Content ABG Base Excess A-a Gradient Oxyhemoglobin Total Hemoglobin O2 Delivery Device O2 Liters/Min FiO2 Expiratory Pressure Inspiratory Pressure NT-Pro-B Natriuret Pep Procalcitonin A. niger Allergen % Cancelled A. niger [place] Class Cancelled Vancomycin Trough IgG 678 IgG Subclass 1 336 IgG Subclass 2 207 IgG Subclass 3 60 IgG Subclass 4 18 CCP IgG/IgA Ab 7 c-ANCA Antibody <1:20 Atypical p-ANCA <1:20 p-ANCA Antibody <1:20 Urine Pneumococcal Ag Not detected TB Test (QFT) Gold Plus Negative TB Test (QFT) Nil 0.01 TB Test Mitogen - Nil 1.03 TB Test Ag - Nil 1 0.00 TB Test Ag - Nil 2 0.00 Miscellaneous Test Cancelled 12/04/24 12/05/24 12/05/24 19:56 04:51 07:33 Puncture Site Right radial ABG pH 7.492 H ABG pCO2 50.9 H ABG pO2 83.5 ABG PO2/FiO2 Ratio 2.98 ABG HCO3 38.1 H ABG O2 Saturation 96.8 ABG O2 Content 15.9 L ABG Base Excess 13.0 A-a Gradient 56.1 Oxyhemoglobin 96.1 Total Hemoglobin 11.7 L O2 Delivery Device Bipap O2 Liters/Min 2.0 FiO2 28 Expiratory Pressure Not Reportable Inspiratory Pressure Not Reportable NT-Pro-B Natriuret Pep 99 Procalcitonin 0.1 A. niger Allergen % A. niger [place] Class Vancomycin Trough < 5.0 L IgG IgG Subclass 1 IgG Subclass 2 IgG Subclass 3 IgG Subclass 4 CCP IgG/IgA Ab c-ANCA Antibody Atypical p-ANCA p-ANCA Antibody Urine Pneumococcal Ag TB Test (QFT) Gold Plus TB Test (QFT) Nil TB Test Mitogen - Nil TB Test Ag - Nil 1 TB Test Ag - Nil 2 Miscellaneous Test
[2024-12-05 10:17] LABS: Hematocrit 37.6 % (37.0-47.0); Hemoglobin 11.4 g/dL (12.0-15.0); Immature Granulocyte Percent A 1.0 % (0-0.5); Lymphocytes Absolute Auto 0.97 K/mm3 (0.9-3.2); Mean Corpuscular HGB Conc 30.3 g/dl (32-36); Mean Corpuscular Hemoglobin 26.9 pg (26-34); Mean Corpuscular Volume 88.7 fl (80-100); Nucleated Red Blood Cells Absolute Auto 0.000 K/mm3 (0.0-0.012); Nucleated Red Blood Cells Perc 0.0 % (0.0-0.2); Platelet Count Result 401 k/mm3 (150-375); Red Blood Count 4.24 M/mm3 (4.2-5.4); White Blood Count 13.7 K/mm3 (4.5-10.0)
[2024-12-05 10:30] LABS: Anion Gap 4 mmol/L (4-12); Blood Urea Nitrogen 28 mg/dL (7-17); Calcium 9.9 mg/dL (8.4-10.2); Carbon Dioxide 39 mmol/L (22-30); Chloride 93 mmol/L (98-107); Estimated CRCL calculation 35 ml/min; Estimated Glomerular Filt Rate 58; Glucose 133 mg/dL (65-110); Potassium 4.1 mmol/L (3.4-5.0); Sodium 136 mmol/L (137-145)
[2024-12-05 16:13] LABS: Human Parainfluenza Virus 1 Not Detected (Not Detected); Human Parainfluenza Virus 2 Not Detected (Not Detected); Human Parainfluenza Virus 3 Not Detected (Not Detected); Human Parainfluenza Virus 4 Not Detected (Not Detected); Human RSV B Not Detected (Not Detected)
[2024-12-05 18:39] LABS: Mycoplasma IgM Antibody Titer. 105 U/mL
[2024-12-05] MEDS: MONTELUKAST SODIUM 10 MG TABLET PO (20:17)
[2024-12-05] MEDS: levoFLOXacin 750 MG/D5W 150 ML 750 MG/150 ML BAG 100 MG IVPB (23:07)
[2024-12-06] VITALS (15 sets, daily range): BP systolic 116–140; BP diastolic 58–70; PULSE 59–85; RESP 14–20; TEMP 36.3–36.8; O2SAT 85–99
--- NOTE | 2024-12-06 04:00 | PCRCNOTE ---
0200 neb tx was omitted due to oximetry study
[2024-12-06] MEDS: MEROPENEM 1 GM in SODIUM CHLORIDE 0.9% IV 100 ML 200 ML IVPB ×2 (05:06→17:07)
--- NOTE | 2024-12-06 08:18 | PM.IMPN ---
Progress Note: A&P Assessment and Plan (1) Acute exacerbation of chronic obstructive pulmonary disease: Code(s): J44.1 - Chronic obstructive pulmonary disease with (acute) exacerbation Status: Acute (2) CAP (community acquired pneumonia): Qualifiers: Laterality: right Lung location: lower lobe of lung Qualified Code(s): J18.9 - Pneumonia, unspecified organism Code(s): J18.9 - Pneumonia, unspecified organism Status: Acute (3) Acute on chronic hypoxic respiratory failure: Code(s): J96.21 - Acute and chronic respiratory failure with hypoxia Status: Acute (4) Acute on chronic respiratory failure with hypoxia and hypercapnia: Code(s): J96.21 - Acute and chronic respiratory failure with hypoxia; J96.22 - Acute and chronic respiratory failure with hypercapnia Status: Acute (5) Hypertension: Code(s): I10 - Essential (primary) hypertension Status: Chronic Plan (1) Acute on chronic respiratory failure with hypoxia and hypercapnia: Code(s): J96.21 - Acute and chronic respiratory failure with hypoxia; J96.22 - Acute and chronic respiratory failure with hypercapnia Status: Acute Assessment and Plan: Patient presents with SOB. ABG - 7.46/48/54 on 3L CXR concerning for infection and possible pulmonary nodule CT chest without contrast showing diffuse tree-in-bud opacities with severe bronchiectasis, concerning for atypical infection, mild cardiomegaly and trace pericardial effusion. Acute on chronic respiratory failure secondary to COPD exacerbation and atypical pneumonia with underlying bronchiectasis. Started on steroids, bronchodilators and abx. Pulmonary consulted and appreciate their input. Able to come off bipap. Able to wean down on oxygen Continue bipap as needed in the night, Patient is on room air daytime (2) CAP (community acquired pneumonia): Qualifiers: Laterality: right Lung location: lower lobe of lung Qualified Code(s): J18.9 - Pneumonia, unspecified organism Code(s): J18.9 - Pneumonia, unspecified organism Status: Acute Assessment and Plan: Imaging as above. She did not meet SIRS criteria. She failed 2 course of Levaquin prior to admission. Started on ceftriaxone and azithromycin in the ED but changed to cefepime, azithromycin, and vancomycin then changed to Meropenem for pseudomonal coverage MRSA nasal swab negative so Vancomycin discontinued. Azithro stopped and Levaquin added for atypical coverage COVID, RSV and influenza PCR negative. Respiratory viral panel ordered. BCx NGTD Sputum culture growing gram positive cocci AFB Sputum negative to date. Mycoplasma, Legionella Ag, pneumococcal Ag ordered Aspergillus testing and testing for connective tissue disease sent WBC higher but felt related to steroids. Continue Levaquin and Meropenem. Patient is found have rhinovirus infection, completed steroid and Levaquin (3) COPD exacerbation: Code(s): J44.1 - Chronic obstructive pulmonary disease with (acute) exacerbation Status: Inactive Assessment and Plan: As above. Having some wheezing. On Huber-24 and level pending received Solu-Medrol. Continue prednisone 40 q.day (day 5 steroids). Continue abx, nebs and steroids. Wean O2 as toelrated (4) Hypertension: Code(s): I10 - Essential (primary) hypertension Status: Chronic Assessment and Plan: Patient's blood pressure was reviewed on 12/03 Blood pressure remains well controlled. Will continue to monitor (5) Bronchiectasis: Code(s): J47.9 - Bronchiectasis, uncomplicated Status: Acute Assessment and Plan: Patient with bronchiectasis and has has asthma since childhood. RF mildly elevated at 19. IgG slightly low at 670. The remainder of the workup pending. Followup on results Subjective Date/time seen: 12/06/24 08:18 Interval history: I saw exam patient today, patient continue to improve. Denies chest pain abdomen pain nausea vomiting diarrhea Exam Narrative: GENERAL: Pleasant, in no acute distress. Well-nourished. - EYES: EOMI. Anicteric. - HENT: Moist mucous membranes. - LUNGS: Coarse breath sound bilaterally - CARDIOVASCULAR: Regular rate and rhythm. No murmur. No JVD. - ABDOMEN: Soft, non-tender and non-distended. No palpable masses. - EXTREMITIES: No edema. Peripheral pulses 2+. Non-tender. - NEUROLOGIC: No focal neurological deficits. CN II-XII grossly intact. - PSYCHIATRIC: Awake, Alert and oriented x 3. Appropriate mood and affect. - SKIN: No rashes or lesions. Warm. - LYMPH: No cervical lymphadenopathy. Objective Data Vital Signs Vital Signs: Vital Signs - 24 hr 12/05/24 08:22 12/05/24 08:22 12/05/24 08:36 Temperature Pulse Rate 62 62 70 Respiratory Rate 20 20 20 Blood Pressure Pulse Oximetry 92 Oxygen Delivery Room Air Oxygen Flow Rate 12/05/24 08:52 12/05/24 14:00 12/05/24 14:42 Temperature 98.1 F Pulse Rate 70 98 100 Respiratory Rate 18 20 Blood Pressure 131/53 L Pulse Oximetry 92 92 Oxygen Delivery Room Air Oxygen Flow Rate 12/05/24 14:42 12/05/24 14:53 12/05/24 20:00 Temperature Pulse Rate 100 75 Respiratory Rate 20 20 Blood Pressure Pulse Oximetry Oxygen Delivery Room Air Oxygen Flow Rate 12/05/24 20:31 12/05/24 20:32 12/05/24 20:42 Temperature Pulse Rate 81 86 Respiratory Rate 20 20 Blood Pressure Pulse Oximetry 90 Oxygen Delivery Room Air Oxygen Flow Rate 12/05/24 20:55 12/05/24 22:40 12/05/24 22:40 Temperature 97.8 F Pulse Rate 82 80 Respiratory Rate 20 Blood Pressure 123/71 Pulse Oximetry 95 90 90 Oxygen Delivery CPAP CPAP Oxygen Flow Rate 3 12/06/24 04:50 12/06/24 05:00 Temperature 97.4 F L Pulse Rate 77 59 L Respiratory Rate 20 Blood Pressure 140/64 Pulse Oximetry 91 99 Oxygen Delivery CPAP Oxygen Flow Rate Intake/Output Intake/Output: Intake & Output 12/03/24 12/04/24 12/05/24 12/06/24 23:59 23:59 23:59 23:59 Intake Total 1790 1820 1443 100 Output Total 1025 1000 Balance 349 419 0779 100 Meds/Results Medications: Active Medications Generic Name Dose Route Start Last Admin Trade Name Freq PRN Reason Stop Dose Admin Acetaminophen 650 mg 12/01/24 19:41 Acetaminophen 325 Mg Tablet PO Q6H PRN Mild Pain (1-3) or Fever Albuterol/Ipratropium 3 ml 12/01/24 20:00 12/06/24 03:59 Ipratropium 0.5 Mg/Albuterol Sulfate 2.5 Mg Ampul.Neb 3 Ml INHALATION Not Given Q6HRT [place] Benzonatate 100 mg 12/01/24 19:40 Benzonatate 100 Mg Capsule PO TID PRN Cough Clopidogrel Bisulfate 75 mg 12/02/24 09:00 12/05/24 08:53 Clopidogrel Bisulfate 75 Mg Tablet PO 75 mg DAILY [facility] Administration Digoxin 125 mcg 12/02/24 09:00 12/05/24 08:52 Digoxin Tab 125 Mcg Tablet PO 125 mcg DAILY [place] Administration Enoxaparin Sodium 40 mg 12/02/24 09:00 12/05/24 08:54 Enoxaparin 40 Mg/0.4 Ml Syringe SUB-Q 40 mg DAILY [place] Administration Ergocalciferol 1,250 mcg 12/12/24 09:00 Ergocalciferol (Vitamin D2) 1,250 Mcg (50,000 Units) Capsule PO [id number] [place] Guaifenesin 1,200 mg 12/02/24 21:00 12/05/24 20:17 Guaifenesin 12 Hr 600 Mg Tabcr PO 1,200 mg Q12HR [place] Administration Hydralazine HCl 50 mg 12/02/24 09:00 12/05/24 08:53 Hydralazine Hcl 50 Mg Tablet PO 50 mg DAILY [place] Administration Hydrochlorothiazide 25 mg 12/02/24 09:00 12/05/24 08:53 Hydrochlorothiazide 25 Mg Tablet PO 25 mg DAILY [place] Administration Levofloxacin/Dextrose 750 mg in 150 mls @ 100 mls/hr 12/02/24 00:00 12/05/24 23:07 Levaquin 750 Mg/D5w 150 Ml IVPB 100 mls/hr Q48H [place] Administration Meropenem 1 gm/ Sodium 100 mls @ 200 mls/hr 12/02/24 18:00 12/06/24 05:36 Chloride IVPB Infused Q12H [place] Infusion Isosorbide Mononitrate 30 mg 12/02/24 09:00 12/05/24 08:53 Isosorbide Mononitrate 30 Mg Tab.Er.24h PO 30 mg DAILY [place] Administration Montelukast Sodium 10 mg 12/01/24 23:15 12/05/24 20:17 Montelukast Sodium 10 Mg Tablet PO 10 mg QHS [place] Administration Huber-24 Er 400mg 1 each 12/02/24 09:00 12/05/24 08:56 Capsule *Use Home BY MOUTH 01/01/25 08:59 1 each Supply* DAILY [place] Administration Pantoprazole Sodium 40 mg 12/02/24 09:00 12/05/24 20:17 Pantoprazole 40 Mg Tablet PO 40 mg Q12HR [place] Administration Prednisone 40 mg 12/05/24 08:00 12/05/24 08:51 Prednisone 20 Mg Tablet PO 40 mg DAILY@0800 [place] Administration Prochlorperazine Edisylate 10 mg 12/01/24 19:41 Prochlorperazine Edisylate 10 Mg/2 Ml Vial IV PUSH Q6H PRN Nausea And Vomiting Rosuvastatin Calcium 40 mg 12/02/24 09:00 12/05/24 08:52 Rosuvastatin 20 Mg Tablet PO 40 mg DAILY [place] Administration Radiology Results: ITS Impressions Chest CT 12/01/24 22:09 IMPRESSION: Diffuse tree-in-bud opacities with severe bronchiectasis, concerning for atypical infection, including but not limited to: tuberculosis, MAC, fungal infection, and bacterial bronchopneumonia. Chronic aspiration considered less likely given the distribution. Mild cardiomegaly. Trace pericardial effusion. Results reported telephonically to Debbie Mac RN by Dr. Willson at 10:29 PM on 12/01/2024. Chest X-Ray 12/05/24 07:42 Impression: COPD or other chronic interstitial change. Possible mild haziness right lung base. Correlate for pneumonia or minimal pulmonary edema. Stable cardiomegaly. Labs Labs: Laboratory Results - last 24 hr 12/01/24 12/02/24 12/05/24 20:37 14:46 07:31 WBC RBC Hgb Hct MCV MCH MCHC RDW Plt Count MPV Immature Gran % (Auto) Neut % (Auto) Lymph % (Auto) [place] % (Auto) Eos % (Auto) Baso % (Auto) Lymph # (Auto) [place] # (Auto) Eos # (Auto) Baso # (Auto) Abs Immat Gran (auto) Absolute Neuts (auto) Absolute Nucleated RBC Nucleated RBC % Sodium 136 L Potassium 4.1 Chloride 93 L Carbon Dioxide 39 H Anion Gap 4 BUN 28 H Creatinine 0.94 Estim Creat Clear Calc 35 Estimated GFR 58 L Glucose 133 H Calcium 9.9 Procalcitonin Nasal RSV Type A (PCR) Not detected Nasal RSV Type B (PCR) Not detected Chlamy pneumoniae PCR Not detected Adenovirus DNA Not detected Human Bocavirus (CAMREN) Not detected Coronavirus Type OC43 Not detected Coronavirus Type HKU1 Not detected Coronavirus Type 229E Not detected Coronavirus Type NL63 Not detected Human Metapneumovir PCR Not detected Influenza A (PCR) Not detected Influenza A (H1) RNA Not detected Influenza A (H3) PCR Not detected Mycoplasma pneumon IgM 105 M. pneumoniae DNA Not detected Parainfluenza PCR Not detected Parainfluenza 2 (PCR) Not detected Parainfluenza 3 RNA (PCR) Not detected Parainfluenza 4 (PCR) Not detected Rhino/Enterovirus (CARMEN) Detected A SARS-CoV-2 RNA (RT-PCR) Not detected Influenza Type B (PCR) Not detected Misc Test Comment see note 12/05/24 12/05/24 07:32 07:33 WBC 13.7 H RBC 4.24 Hgb 11.4 L Hct 37.6 MCV 88.7 MCH 26.9 MCHC 30.3 L RDW 15.0 H Plt Count 401 H MPV 9.9 Immature Gran % (Auto) 1.0 H Neut % (Auto) 85.7 H Lymph % (Auto) 7.1 L [place] % (Auto) 6.1 Eos % (Auto) 0.0 Baso % (Auto) 0.1 L Lymph # (Auto) 0.97 [place] # (Auto) 0.8 H Eos # (Auto) 0.0 Baso # (Auto) 0.0 Abs Immat Gran (auto) 0.13 H Absolute Neuts (auto) 11.7 H Absolute Nucleated RBC 0.000 Nucleated RBC % 0.0 Sodium Potassium Chloride Carbon Dioxide Anion Gap BUN Creatinine Estim Creat Clear Calc Estimated GFR Glucose Calcium Procalcitonin 0.1 Nasal RSV Type A (PCR) Nasal RSV Type B (PCR) Chlamy pneumoniae PCR Adenovirus DNA Human Bocavirus (CARMEN) Coronavirus Type OC43 Coronavirus Type HKU1 Coronavirus Type 229E Coronavirus Type NL63 Human Metapneumovir PCR Influenza A (PCR) Influenza A (H1) RNA Influenza A (H3) PCR Mycoplasma pneumon IgM M. pneumoniae DNA Parainfluenza PCR Parainfluenza 2 (PCR) Parainfluenza 3 RNA (PCR) Parainfluenza 4 (PCR) Rhino/Enterovirus (CARMEN) SARS-CoV-2 RNA (RT-PCR) Influenza Type B (PCR) Misc Test Comment
--- NOTE | 2024-12-06 08:23 | P.PNPL_ITS ---
Progress Note: A&P Assessment and Plan (1) Rhinovirus infection: Code(s): B34.8 - Other viral infections of unspecified site Status: Acute Assessment and Plan: 12/06/24: Overall patient tells me she is about the same as yesterday. 55-60% back to her baseline. She was able to walk to the bathroom with no oxygen and says her dyspnea on exertion is worse than usual but slowly improving. Her cough is normal. Her phlegm production is normal. She has no hemoptysis. She is afebrile. Patient just finished walking back from the bathroom on room air and her saturations were 90%. Her weight today is 60.0. Respiratory pathogen panel returned positive for rhinovirus. Suspect rhinovirus infection in this patient with bronchiectasis resulted in patient has clinical deterioration. Plan: Treatment for rhinovirus is supportive. I will discontinue her prednisone as she has received 5 days and she has no wheezing today. Patient should talk with her pulmonary team regarding next Dupixent injection. In my opinion patient should be completely recovered for least 2 weeks prior to receiving additional biologics. If patient remains clinically stable on 12/07/2024 patient can be discharged on these pulmonary medicines: Air supra 90-80 mcg 2 inhalations q.4 hours p.r.n. shortness of breath or wheezing Theophylline ER 400 p.o. q.day Montelukast 10 q.day Dupixent injection on hold until clearance from her primary pulmonary team. Oxygen at rest and with activity per formal home O2 assessment which I have ordered today. When she naps or sleeps: Home TTV-VAPS- AE through [facility]: rate is auto, tidal volume 450, EPAP minimum 6, EPAP maximum 15, pressure support 4, pressure support maximum 25, speed of 3, with 2 L bleed in. Follow-up per [facility] pulmonary. Patient has already notified them that she is in the hospital, and she will call the clinic for an appropriate follow-up appointment. Pulmonary in-patient consultative services will resume on 12/09/2024. Call with questions. Discussed with Dr. Siegel (2) Bronchiectasis: Code(s): J47.9 - Bronchiectasis, uncomplicated Status: Acute Assessment and Plan: Regarding her bronchiectasis patient Was admitted to the hospital with what sounds like hypercarbic respiratory failure 2 years ago. She was treated with BiPAP and told she had bronchiectasis and discharged on home noninvasive ventilator. As an outpatient she saw a sammying machine operator at [facility] after this and was told she had bronchiectasis. She is unsure if she had a complete workup but apparently they had a case conference with multiple subspecialists there. At baseline she is on theophylline 400 today, trelegy 100, , azithromycin 500 3 times a week, vest therapy twice a day, Dupixent injection every 2 weeks. the patient tells me she is chronically colonized with Pseud omonas. Patient's last prednisone use was 18 months ago. At baseline the patient says she can walk around her house but then has respiratory limitations. She uses no oxygen at rest, 2 L with activity and 2 L bleed in at night. She is a never smoker and never exposed to secondhand smoke. Her father of respiratory issues at age 45 and thinks he had the same condition as her. currently the patient has 4 week continued respiratory deterioration with increased cough, increased phlegm production and change in phlegm production with no fever or hemoptysis. She presents with a leukocytosis and a CT scan with bronchiectasis and tree-in-bud infiltrates throughout. COVID influenza and RSV RT PCR negative, MRSA negative. She has no hypercarbic respiratory failure. Etiology of current clinical deterioration includes: Flare of bronchiectasis, pneumonia, bronchitis, Asthma exacerbation. plan: Improved with antibiotics, bronchodilators and steroids. Will continue Levaquin and meropenem day 1 of both, she received 1 day of ceftriaxone and azithromycin on 12/01, so day 2 total antibiotics. Sputum for bacterial culture is pending. I will send a respiratory pathogen panel. I will send serologies looking for an autoimmune disease process, immunodeficiency as an etiology to the patient's bronchiectasis. I will send total IgG, IgM, IgA, IgE, IgG subclass, Aspergillus IgG, Aspergillus IgE, EROS screen and rheumatoid factor. I will check an alpha 1 anti trypsin. I will send sputum for AFB q.a.m. x3 looking for atypical mycobacterium. I am not concerned about mycobacterium tuberculosis and from my perspective can discontinue respiratory isolation. QuantiFERON gold is pending. I will decrease her Solu-Medrol to 20 mg IV q.6 hours. Continue DuoNebs q.6 hours, increase guaifenesin to 1200 mg p.o. b.i.d., I will continue her theophylline 400 mg q.day and will give her her home dose. 12/03/24: Patient says she is feeling much better than when she was admitted and slept better last night. Overall she feels she is about 80% back to her normal. Her phlegm production has decreased. When I enter the room she was on 2 L nasal. I placed her to room air and her saturations were 93%. Her white blood cell count is 19.6, creatinine is 0.92, her procalcitonin is 0.1. Sputum Gram stain with Gram-positive cocci. Serologies: QuantiFERON gold negative. Rheumatoid factor 19.4. IgA level 108, IgM level 86. IgG total 678, IgG class 05/31/2035, IgG class 06/30/2006, IgG class 360, IgG class 418. Anti CCP 7. Anca screen negative, All others pending. Plan: patient with wheezes today. I will continue Solu-Medrol 20 IV q.6, I will continue Levaquin and meropenem, both day 2 for bacterial infection. I will continue DuoNebs q.6, guaifenesin 1200 p.o. b.i.d., vest therapy, Cornet flutter valve treatment to help sputum expectoration. Will continue theophylline 400, theophylline level drawn today.. sputum with Gram- positive cocci with many white blood cells. Sputum for AFB x3 pending. Legionella urine antigen, pneumococcal urine antigen, mycoplasma IgM and respiratory pathogen panel pending. 12/04/24: Patient tells me she continues to improve. Is difficult to quantitate. She says she has 50% back to her normal. She denies any phlegm production or hemoptysis. Her cough is improved. She is afebrile. When I enter the room she was on 2 L with saturation 99%. I turned her to room air and after 8 minutes her saturations were 94%. White blood cell count 16.3, creatinine 0.86. Plan: Overall the patient is proving. She has less wheezing today. I will change her Solu-Medrol 20 mg IV q.6 hours to prednisone 40 q.day. I will continue Levaquin and meropenem, both day 3 for bacterial infection. I will continue DuoNebs q.6, guaifenesin 1200 p.o. b.i.d., vest therapy, Cornet flutter valve treatment to help sputum expectoration. Will continue theophylline 400, theophylline level 11.7, good. sputum with Gram-positive cocci with many white blood cells. Sputum for AFB x2 in lab and pending. Legionella urine antigen, pneumococcal urine antigen, mycoplasma IgM and respiratory pathogen panel pending. 12/05/2024: Patient tells me she continues to improve. She is 55-60% back to her baseline. She denies cough and has 0 phlegm. She denies fever, chills, rigors. She is afebrile. When I enter the room she was on 2 L nasal cannula saturations 99%. I changed her to room air her saturations were 91%. Plan: Overall the patient is improving. Continue prednisone 40 q.day (day 5 steroids). I will continue Levaquin and meropenem, both day 4 for bacterial infection. I will continue DuoNebs q.6, guaifenesin 1200 p.o. b.i.d., vest therapy, Cornet flutter valve treatment to help sputum expectoration. Will continue theophylline 400, theophylline level 11.7, good. sputum with pseudomonas aeruginosa. Sputum for AFB x2 in lab and pending. Legionella urine antigen, pneumococcal urine antigen negative, mycoplasma IgM and respiratory pathogen panel pending. 12/06/2024: Slowly improving. Patient states her cough and phlegm production her back to her baseline. Pseudomonas has returned resistant to ciprofloxacin and Levaquin, sensitive to amikacin, ceftazidime, cefepime, imipenem, meropenem and Zosyn. Is difficult to tell if rhinovirus explains all of the patient's clinical deterioration or if there is a concurrent bacterial-pseudomonal infection. Plan: patient has received Levaquin and meropenem, both day 5. Will discontinue Levaquin today. Plan for a total of 7 days meropenem if she remains in the hospital. If she is discharged before that, will discharge on no p.o. antibiotics. Her sputum is greatly improved at this time and she has no difficulty expectorating. Continue her home theophylline 400 q.day, montelukast 10 q.day, vest treatment twice a day. Continue Cornet flutter valve. she has no difficulty expectorating and I will change the guaifenesin to 1200 mg p.o. b.i.d. p.r.n.. She is only on p.r.n. inhalers at home and I will change her DuoNebs to p.r.n.. (3) Acute on chronic respiratory failure with hypoxia and hypercapnia: Code(s): J96.21 - Acute and chronic respiratory failure with hypoxia; J96.22 - Acute and chronic respiratory failure with hypercapnia Status: Acute Assessment and Plan: Patient tells me she has a history of hypercarbic respiratory failure and requires BiPAP through [facility] with 2 L bleed in at night. Patient tells me she wore hospital BiPAP rate of 14 pressures 12/6, rise of 1, inspiratory time 1.0, 32% FiO2 and that the air delivery felt fine but the mask was more uncomfortable. Plan: I will continue her current hospital settings as above with 2 L bleed in. I will obtain a download from [employer]. I recommended the patient bring in her home machine with an over the mouth under the nose mask that is more comfortable for her. 12/03/24: Patient wore the hospital noninvasive ventilator with BiPAP rate of 14 pressures 12/6 and 40% and said she slept well. I have obtained a download from [employer] From 07/09/2024 through 09/15/2024 and the patient is on TTV-VAPS- AE rate is auto, tidal volume 450, EPAP minimum 6, EPAP maximum 15, pressure support 4, pressure support maximum 25, speed of 3, with 2 L bleed in. Uses days 07/18/2029, usage average 3 hours and 28 minutes. Median respiratory rate 21, median tidal volume 450. Median EPAP 6, median IPAP 12.5, median minute ventilation 8.1. Median leak 12.5. I interpret this download as poor compliance, adequate pressures and low leak. Plan: to better match her home settings I have placed the patient on AVAPS rate of 14, tidal volume 450, EPAP 6, minimal inspiratory pressure 7, maximal inspiratory pressure 25, inspiratory time 1.0, rise of 5 which is are slowest and 28% FiO2. I will obtain an overnight oximetry and an ABG prior to removal on these settings. I recommended the patient bring in her home machine so that we can use this while she is in the hospital. 12/04/24; Patient wore the hospital noninvasive ventilator with the AVAPS mode with rate of 14, tidal volume 450, EPAP 6, minimal inspiratory pressure 7, maximal inspiratory pressure 25, 28% FiO2. Patient had a overnight oximetry on these settings with recording duration of 7 hours and 2 minutes, average saturation 97%, low saturation 81%, time with saturation less than or equal to 88% was 1.0 minutes, oxygen desaturation index 1.5. Patient had ABG prior to removal of the mask with pH of 7.45/51/108. Patient states her home machine is more comfortable. Plan: current hospital AVAPS setting provide adequate oxygenation and ventilation. I told the patient to bring her home machine in as it is more comfortable. 12/05/24: Patient wore her home machine with 2 L bleed in and said she slept well. Patient an overnight oximetry with recording duration 7 hours and 59 minutes. Average saturation 92%. Low saturation 54%. Time with saturation les s than or equal to 88% was 66 minutes. Oxygen desaturation index 9.0. Patient had ABG prior to removal with pH of 7.49/51/84. Plan: Home AVAPS settings provide adequate ventilation. I will increase her bleed in to 3 L and repeat an overnight oximetry on 3 L tonight. 12/06/24: Patient wore home noninvasive ventilator with 3 L bleed in last night. She said she slept poorly because the oxygen dry her mouth out and could not sleep. Overnight oximetry with recording duration 6 hours and 9 minutes. Average saturation 96%. Low saturation 64%. Time with saturation less than or equal to 88% was 13 minutes. Oxygen desaturation index 5.4. All the desaturations were associated with sharp spikes. Plan: patient cannot tolerate 3 L bleed in. Will discharge on home AVAPS settings with 2 L bleed in. Subjective Date/time seen: 12/06/24 08:23 Interval history: 12/02/2024: This is a new pulmonary consult for COPD 74-year-old with a history of asthma, bronchiectasis with chronic hypoxemic and hypercarbic respiratory failure on supplemental oxygen and noninvasive ventilation at night. regarding patient's asthma she was diagnosed as a young child and remembers having asthma all her life. She has been on inhaled medicines all her life. she has been on Dupixent for about 1 and half years and does not know if this is for her asthma. Regarding her bronchiectasis patient Patient was diagnosed at least 5 [address] scan. She was admitted to the hospital with what sounds like hypercarbic respiratory failure 2 years ago. She was treated with BiPAP and told she had bronchiectasis and discharged on home noninvasive ventilator. As an outpatient she saw a sammying machine operator at [facility] after this and was told she had bronchiectasis. She is unsure if she had a complete workup but apparently they had a case conference with multiple subspecialists there. The patient tells me she is chronically colonized with Pseudomonas. She is not familiar with the term Aspergillus or ABPA. At baseline she is on theophylline 400 today, trelegy 100, , azithromycin 500 3 times a week, vest therapy twice a day, Dupixent injection every 2 weeks. Patient's last prednisone use was 18 months ago. At baseline the patient says she can walk around her house but then has respiratory limitations. She uses no oxygen at rest, 2 L with activity and 2 L bleed in at night. She is a never smoker and never exposed to secondhand smoke. Her father of respiratory issues at age 45 and thinks he had the same condition as her. she has 11 siblings none of them have this respiratory condition. She has 2 children, and one is a 60 YO daughter and she has the same breathing condition but is not sure if she has bronchiectasis. this daughter has 2 healthy children. Approximately 1 month ago the patient was fatigued, had worsening shortness of breath and increased phlegm and was given a course of Levaquin and Solu-Medrol by her PCP. Patient showed no improvement and about 2 weeks ago was prescribed another dose of Medrol and Levaquin. Patient states for the last month she has been run down taking care of her who has had a stroke. For 1 month she has had worsening cough, increased phlegm production the phlegm has changed and is times as pudding consistency and very slimy. It is yellow in color with no blood. She denies fever, chills, rigors. She denies chronic weight loss. Patient was seen at urgent care on 12/01/24 and then in the emergency department with a blood pressure of 153/90, heart rate 78, respiratory is 20, on 3 L nasal cannula saturation 98%. She was labored, had decreased breath sounds and wheeze s. Her white blood cell count was 18.7 with 0.2% eosinophils, creatinine 1.17, BNP 424, COVID, influenza, RSV RT PCR assay negative, MRSA swab negative, ABG on 3 L nasal cannula 7.47/48/54. CT scan of the chest showed diffuse panlobular cylindrical bronchiectasis with bilateral diffuse tree-in-bud infiltrates. There were no consolidations, no pleural disease, no bullous emphysema, no interstitial lung disease. Patient was initiated on Solu-Medrol, bronchodilators, ceftriaxone and azithromycin. Ceftriaxone and azithromycin were changed to Levaquin and meropenem. 12/02/2024: Patient says she is feeling better. She says that her cough and phlegm production her 80% back to her normal. She was placed on BiPAP last night and said that the air delivery felt the same but the mask was more comfortable than her home mask. She is afebrile. Currently she is on 2.5 L nasal cannula saturations 94-95%. White blood cell count 17.1, creatinine 0.96. 12/03/24: Patient says she is feeling much better than when she was admitted and slept better last night. Overall she feels she is about 80% back to her normal. Her phlegm production has decreased. When I enter the room she was on 2 L nasal. I placed her to room air and her saturations were 93%. Her white blood cell count is 19.6, creatinine is 0.92, her procalcitonin is 0.1. Sputum Gram stain with Gram-positive cocci. Patient wore the hospital noninvasive ventilator with BiPAP rate of 14 pressures 12/6 and 40% and said she slept well. I have obtained a download from [employer] From 07/09/2024 through 09/15/2024 and the patient is on TTV-VAPS- AE rate is auto, tidal volume 450, EPAP minimum 6, EPAP maximum 15, pressure support 4, pressure support maximum 25, speed of 3, with 2 L bleed in. Uses days 07/18/2029, usage average 3 hours and 28 minutes. Median respiratory rate 21, median tidal volume 450. Median EPAP 6, median IPAP 12.5, median minute ventilation 8.1. Median leak 12.5. I interpret this download as poor compliance, adequate pressures and low leak. 12/04/24: Patient tells me she continues to improve. Is difficult to quantitate. She says she has 50% back to her normal. She denies any phlegm production or hemoptysis. Her cough is improved. She is afebrile. When I enter the room she was on 2 L with saturation 99%. I turned her to room air and after 8 minutes her saturations were 94%. White blood cell count 16.3, creatinine 0.86. Patient wore the [facility] noninvasive ventilator with the AVAPS mode with rate of 14, tidal volume 450, EPAP 6, minimal inspiratory pressure 7, maximal inspiratory pressure 25, 28% FiO2. Patient had a overnight oximetry on these settings with recording duration of 7 hours and 2 minutes, average saturation 97%, low saturation 81%, time with saturation less than or equal to 88% was 1.0 minutes, oxygen desaturation index 1.5. Patient had ABG prior to removal of the mask with pH of 7.45/51/108. 12/05/2024: Patient tells me she continues to improve. She is 55-60% back to her baseline. She denies cough and has 0 phlegm. She denies fever, chills, rigors. She is afebrile. When I enter the room she was on 2 L nasal cannula saturations 99%. I changed her to room air her saturations were 91%. Patient wore her home machine with 2 L bleed in and said she slept well. Patient an overnight oximetry with recording duration 7 hours and 59 minutes. Average saturation 92%. Low saturation 54%. Time with saturation less than or equal to 88% was 66 minutes. Oxygen desaturation index 9.0. Patient had ABG prior to removal with pH of 7.49/51/84. 12/06/24: Overall patient tells me she is about the same as yesterday. 55-60% back to her baseline. She was able to walk to the bathroom with no oxygen and says her dyspnea on exertion is worse than usual but slowly improving. Her cough is normal. Her phlegm production is normal. She has no hemoptysis. She is afebrile. Patient just finished walking back from the bathroom on room air and her saturations were 90%. Her weight today is 60.0. Respiratory pathogen panel returned positive for rhinovirus. Patient wore home noninvasive ventilator with 3 L bleed in last night. She said she slept poorly because the oxygen dry her mouth out and could not sleep. Overnight oximetry with recording duration 6 hours and 9 minutes. Average saturation 96%. Low saturation 64%. Time with saturation less than or equal to 88% was 13 minutes. Oxygen desaturation index 5.4. All the desaturations were associated with sharp spikes. DATA: 12/01/24: EXAMINATION: CT diagnostic chest wo con INDICATION: nodule vs infection COMPARISON: X-ray chest, same date. FINDINGS: CHEST: Thoracic aorta: Borderline ectasia of the ascending aorta measuring up to 3.9 cm. Moderate atherosclerotic calcifications. Visualization of the aortic wall as can be seen with anemia. Lung parenchyma and airways: Significant biapical pleural scarring. Tree-in-bud opacities in all lung lobes. Widespread cystic and cylindrical bronchiectasis. Several areas of the cystic bronchiectasis contain fluid or aerated secretions. Thoracic inlet, axillae and chest wall: No thyroid or soft tissue mass. No axillary lymphadenopathy. Mediastinum: Dilated central pulmonary arteries as can be seen with pulmonary hypertension. Large hiatal hernia containing approximately one half of the stomach. Heart and pericardium: Mild cardiomegaly. Aortic valve and mitral calcifications Trace pericardial fluid. Coronary artery calcifications: Mild. Pleura: Fat-containing right posterior diaphragmatic hernia. Upper abdomen: No significant finding. Thoracic bones: No acute osseous finding in the chest. IMPRESSION: Diffuse tree-in-bud opacities with severe bronchiectasis, concerning for atypical infection, including but not limited to: tuberculosis, MAC, fungal infection, and bacterial bronchopneumonia. Chronic aspiration considered less likely given the distribution. Mild cardiomegaly. Trace pericardial effusion. Results reported telephonically to Debbie Mac RN by Dr. Willson at 10:29 PM on 12/01/2024. Review of Systems Constitutional: Constitutional: Reports no additional constitutional complaints Eyes: Eyes: Reports no additional eye complaints ENT: Reports system reviewed and no additional complaints, except as documented Cardiovascular: Cardiovascular: Reports no additional cardiovascular complaints Respiratory: Respiratory: Reports no additional respiratory complaints Gastrointestinal: Gastrointestinal: Reports no additional gastrointestinal complaints Musculoskeletal: Musculoskeletal: Reports no additional musculoskeletal complaints Neurologic: Reports system reviewed and no additional complaints, except as documented Psychiatric: Psychiatric: Reports no additional psychiatric complaints Endocrine: Endocrine: Reports no additional endocrine complaints Hematologic/Lymphatic: Hematologic/Lymphatic: Reports no additional hematologic/lymphatic complaints Allergic/Immunologic: Allergic/Immunologic: Reports no additional allergic/immunologic complaints Exam Narrative: Comfortable Const: General: cooperative, healthy appearing and comfortable Orientation/consciousness: oriented to person, oriented to place and oriented to time HENMT: Head: normal to inspection Ears: hearing grossly normal bilaterally Eyes: General: appearance normal, both eyes and all related structures Neck: Neck: normal visual inspection Chest: Chest palpation & inspection: normal inspection of the chest Resp: Effort & Inspection: normal respiratory effort and able to speak in complete sentences Auscultation: crackles, no rales, no rhonchi, no wheezes and lung sounds not diminished Other: Few squeaks no wheezes. Cardio: Jugular venous distension: no JVD GI: Inspection: normal to inspection Skin: General skin exam: normal color Neuro: General: oriented to person, oriented to place and oriented to time Extrem: General: normal to inspection Psych: Appearance: grossly normal Objective Data Vital Signs Vital Signs: Vital Signs - 24 hr 12/05/24 08:36 12/05/24 08:52 12/05/24 14:00 Temperature 36.7 C Pulse Rate 70 70 98 Respiratory Rate 20 18 Blood Pressure 131/53 L Pulse Oximetry 92 Oxygen Delivery Oxygen Flow Rate 12/05/24 14:42 12/05/24 14:42 12/05/24 14:53 Temperature Pulse Rate 100 100 75 Respiratory Rate 20 20 20 Blood Pressure Pulse Oximetry 92 Oxygen Delivery Room Air Oxygen Flow Rate 12/05/24 20:00 12/05/24 20:31 12/05/24 20:32 Temperature Pulse Rate 81 Respiratory Rate 20 Blood Pressure Pulse Oximetry 90 Oxygen Delivery Room Air Room Air Oxygen Flow Rate 12/05/24 20:42 12/05/24 20:55 12/05/24 22:40 Temperature 36.6 C Pulse Rate 86 82 Respiratory Rate 20 20 Blood Pressure 123/71 Pulse Oximetry 95 90 Oxygen Delivery CPAP Oxygen Flow Rate 3 12/05/24 22:40 12/06/24 04:50 12/06/24 05:00 Temperature 36.3 C L Pulse Rate 80 77 59 L Respiratory Rate 20 Blood Pressure 140/64 Pulse Oximetry 90 91 99 Oxygen Delivery CPAP CPAP Oxygen Flow Rate Intake/Output Intake/Output: Intake & Output 12/03/24 12/04/24 12/05/24 12/06/24 23:59 23:59 23:59 23:59 Intake Total 1790 1820 1443 100 Output Total 1025 1000 Balance 137 257 6314 100 Meds/Results Medications: Active Medications Generic Name Dose Route Start Last Admin Trade Name Freq PRN Reason Stop Dose Admin Acetaminophen 650 mg 12/01/24 19:41 Acetaminophen 325 Mg Tablet PO Q6H PRN Mild Pain (1-3) or Fever Albuterol/Ipratropium 3 ml 12/01/24 20:00 12/06/24 03:59 Ipratropium 0.5 Mg/Albuterol Sulfate 2.5 Mg Ampul.Neb 3 Ml INHALATION Not Given Q6HRT [place] Benzonatate 100 mg 12/01/24 19:40 Benzonatate 100 Mg Capsule PO TID PRN Cough Clopidogrel Bisulfate 75 mg 12/02/24 09:00 12/05/24 08:53 Clopidogrel Bisulfate 75 Mg Tablet PO 75 mg DAILY [place] Administration Digoxin 125 mcg 12/02/24 09:00 12/05/24 08:52 Digoxin Tab 125 Mcg Tablet PO 125 mcg DAILY [place] Administration Enoxaparin Sodium 40 mg 12/02/24 09:00 12/05/24 08:54 Enoxaparin 40 Mg/0.4 Ml Syringe SUB-Q 40 mg DAILY [place] Administration Ergocalciferol 1,250 mcg 12/12/24 09:00 Ergocalciferol (Vitamin D2) 1,250 Mcg (50,000 Units) Capsule PO [id number] [place] Guaifenesin 1,200 mg 12/02/24 21:00 12/05/24 20:17 Guaifenesin 12 Hr 600 Mg Tabcr PO 1,200 mg Q12HR [place] Administration Hydralazine HCl 50 mg 12/02/24 09:00 12/05/24 08:53 Hydralazine Hcl 50 Mg Tablet PO 50 mg DAILY [place] Administration Hydrochlorothiazide 25 mg 12/02/24 09:00 12/05/24 08:53 Hydrochlorothiazide 25 Mg Tablet PO 25 mg DAILY [place] Administration Levofloxacin/Dextrose 750 mg in 150 mls @ 100 mls/hr 12/02/24 00:00 12/05/24 23:07 Levaquin 750 Mg/D5w 150 Ml IVPB 100 mls/hr Q48H [place] Administration Meropenem 1 gm/ Sodium 100 mls @ 200 mls/hr 12/02/24 18:00 12/06/24 05:36 Chloride IVPB Infused Q12H [place] Infusion Isosorbide Mononitrate 30 mg 12/02/24 09:00 12/05/24 08:53 Isosorbide Mononitrate 30 Mg Tab.Er.24h PO 30 mg DAILY [place] Administration Montelukast Sodium 10 mg 12/01/24 23:15 12/05/24 20:17 Montelukast Sodium 10 Mg Tablet PO 10 mg QHS [place] Administration Huber-24 Er 400mg 1 each 12/02/24 09:00 12/05/24 08:56 Capsule *Use Home BY MOUTH 01/01/25 08:59 1 each Supply* DAILY [place] Administration Pantoprazole Sodium 40 mg 12/02/24 09:00 12/05/24 20:17 Pantoprazole 40 Mg Tablet PO 40 mg Q12HR [place] Administration Prednisone 40 mg 12/05/24 08:00 12/05/24 08:51 Prednisone 20 Mg Tablet PO 40 mg DAILY@0800 [place] Administration Prochlorperazine Edisylate 10 mg 12/01/24 19:41 Prochlorperazine Edisylate 10 Mg/2 Ml Vial IV PUSH Q6H PRN Nausea And Vomiting Rosuvastatin Calcium 40 mg 12/02/24 09:00 12/05/24 08:52 Rosuvastatin 20 Mg Tablet PO 40 mg DAILY [place] Administration Radiology Results: ITS Impressions Chest CT 12/01/24 22:09 IMPRESSION: Diffuse tree-in-bud opacities with severe bronchiectasis, concerning for atypical infection, including but not limited to: tuberculosis, MAC, fungal infection, and bacterial bronchopneumonia. Chronic aspiration considered less likely given the distribution. Mild cardiomegaly. Trace pericardial effusion. Results reported telephonically to Debbie Mac RN by Dr. Willson at 10:29 PM on 12/01/2024. Chest X-Ray 12/05/24 07:42 Impression: COPD or other chronic interstitial change. Possible mild haziness right lung base. Correlate for pneumonia or minimal pulmonary edema. Stable cardiomegaly. Labs Labs: Laboratory Results - last 24 hr 12/01/24 12/02/24 12/05/24 20:37 14:46 07:31 WBC RBC Hgb Hct MCV MCH MCHC RDW Plt Count MPV Immature Gran % (Auto) Neut % (Auto) Lymph % (Auto) [place] % (Auto) Eos % (Auto) Baso % (Auto) Lymph # (Auto) [place] # (Auto) Eos # (Auto) Baso # (Auto) Abs Immat Gran (auto) Absolute Neuts (auto) Absolute Nucleated RBC Nucleated RBC % Sodium 136 L Potassium 4.1 Chloride 93 L Carbon Dioxide 39 H Anion Gap 4 BUN 28 H Creatinine 0.94 Estim Creat Clear Calc 35 Estimated GFR 58 L Glucose 133 H Calcium 9.9 Procalcitonin Nasal RSV Type A (PCR) Not detected Nasal RSV Type B (PCR) Not detected Chlamy pneumoniae PCR Not detected Adenovirus DNA Not detected Human Bocavirus (CARMEN) Not detected Coronavirus Type OC43 Not detected Coronavirus Type HKU1 Not detected Coronavirus Type 229E Not detected Coronavirus Type NL63 Not detected Human Metapneumovir PCR Not detected Influenza A (PCR) Not detected Influenza A (H1) RNA Not detected Influenza A (H3) PCR Not detected Mycoplasma pneumon IgM 105 M. pneumoniae DNA Not detected Parainfluenza PCR Not detected Parainfluenza 2 (PCR) Not detected Parainfluenza 3 RNA (PCR) Not detected Parainfluenza 4 (PCR) Not detected Rhino/Enterovirus (CARMEN) Detected A SARS-CoV-2 RNA (RT-PCR) Not detected Influenza Type B (PCR) Not detected Misc Test Comment see note 12/05/24 12/05/24 07:32 07:33 WBC 13.7 H RBC 4.24 Hgb 11.4 L Hct 37.6 MCV 88.7 MCH 26.9 MCHC 30.3 L RDW 15.0 H Plt Count 401 H MPV 9.9 Immature Gran % (Auto) 1.0 H Neut % (Auto) 85.7 H Lymph % (Auto) 7.1 L [place] % (Auto) 6.1 Eos % (Auto) 0.0 Baso % (Auto) 0.1 L Lymph # (Auto) 0.97 [place] # (Auto) 0.8 H Eos # (Auto) 0.0 Baso # (Auto) 0.0 Abs Immat Gran (auto) 0.13 H Absolute Neuts (auto) 11.7 H Absolute Nucleated RBC 0.000 Nucleated RBC % 0.0 Sodium Potassium Chloride Carbon Dioxide Anion Gap BUN Creatinine Estim Creat Clear Calc Estimated GFR Glucose Calcium Procalcitonin 0.1 Nasal RSV Type A (PCR) Nasal RSV Type B (PCR) Chlamy pneumoniae PCR Adenovirus DNA Human Bocavirus (CARMEN) Coronavirus Type OC43 Coronavirus Type HKU1 Coronavirus Type 229E Coronavirus Type NL63 Human Metapneumovir PCR Influenza A (PCR) Influenza A (H1) RNA Influenza A (H3) PCR Mycoplasma pneumon IgM M. pneumoniae DNA Parainfluenza PCR Parainfluenza 2 (PCR) Parainfluenza 3 RNA (PCR) Parainfluenza 4 (PCR) Rhino/Enterovirus (CARMEN) SARS-CoV-2 RNA (RT-PCR) Influenza Type B (PCR) Misc Test Comment
[2024-12-06] MEDS: IPRATROPIUM 0.5 MG/ALBUTEROL SULFATE 2.5 MG AMPUL.NEB 3 ML INHALATION (08:33)
[2024-12-06] MEDS: PANTOPRAZOLE 40 MG TABLET PO ×2 (09:01→20:15)
[2024-12-06] MEDS: DIGOXIN TAB 125 MCG TABLET PO (09:01)
[2024-12-06] MEDS: ROSUVASTATIN 20 MG TABLET 40 MG PO (09:01)
[2024-12-06] MEDS: ENOXAPARIN 40 MG/0.4 ML SYRINGE SUB-Q (09:01)
[2024-12-06] MEDS: guaiFENesin 12 HR 600 MG TABCR 1200 MG PO (09:01)
[2024-12-06] MEDS: ISOSORBIDE MONONITRATE 30 MG TAB.ER.24H PO (09:02)
[2024-12-06] MEDS: THEOPHYLLINE 400 MG 1 EACH BY MOUTH (09:02)
[2024-12-06] MEDS: CLOPIDOGREL BISULFATE 75 MG TABLET PO (09:02)
[2024-12-06 09:25] LABS: Hematocrit 39.1 % (37.0-47.0); Hemoglobin 12.0 g/dL (12.0-15.0); Immature Granulocyte Percent A 1.5 % (0-0.5); Lymphocytes Absolute Auto 3.23 K/mm3 (0.9-3.2); Mean Corpuscular HGB Conc 30.7 g/dl (32-36); Mean Corpuscular Hemoglobin 26.8 pg (26-34); Mean Corpuscular Volume 87.5 fl (80-100); Nucleated Red Blood Cells Absolute Auto 0.000 K/mm3 (0.0-0.012); Nucleated Red Blood Cells Perc 0.0 % (0.0-0.2); Platelet Count Result 349 k/mm3 (150-375); Red Blood Count 4.47 M/mm3 (4.2-5.4); White Blood Count 15.6 K/mm3 (4.5-10.0)
[2024-12-06 09:45] LABS: Blood Urea Nitrogen 32 mg/dL (7-17); Calcium 10.2 mg/dL (8.4-10.2); Carbon Dioxide > 40 mmol/L (22-30); Chloride 91 mmol/L (98-107); Estimated CRCL calculation 33 ml/min; Estimated Glomerular Filt Rate 54; Glucose 136 mg/dL (65-110); Potassium 3.6 mmol/L (3.4-5.0); Sodium 137 mmol/L (137-145)
[2024-12-06 10:08] LABS: ANA by IFA Rfx Titer/Pattern Negative (.)
--- NOTE | 2024-12-06 11:32 | PCRCNOTE ---
hOME o2 EVAL DONE, PT NEEDS 2 L WITH ACTIVITY, ROOM AIR AT REST. PT HAS HER OWN POC FOR TRANSPORT HOME IN ROOM. FABIO RWIGHT.
[2024-12-06] MEDS: MONTELUKAST SODIUM 10 MG TABLET PO (20:15)
[2024-12-07] VITALS (9 sets, daily range): BP systolic 103–130; BP diastolic 61–72; PULSE 68–96; RESP 20; TEMP 36.4–36.6; O2SAT 92–96
[2024-12-07] MEDS: MEROPENEM 1 GM in SODIUM CHLORIDE 0.9% IV 100 ML 200 ML IVPB ×2 (05:05→17:11)
[2024-12-07] MEDS: ROSUVASTATIN 20 MG TABLET 40 MG PO (08:48)
[2024-12-07] MEDS: ISOSORBIDE MONONITRATE 30 MG TAB.ER.24H PO (08:49)
[2024-12-07] MEDS: DIGOXIN TAB 125 MCG TABLET PO (08:49)
[2024-12-07] MEDS: CLOPIDOGREL BISULFATE 75 MG TABLET PO (08:49)
[2024-12-07] MEDS: PANTOPRAZOLE 40 MG TABLET PO ×2 (08:49→21:04)
[2024-12-07] MEDS: THEOPHYLLINE 400 MG 1 EACH BY MOUTH (08:50)
[2024-12-07] MEDS: ENOXAPARIN 40 MG/0.4 ML SYRINGE SUB-Q (08:50)
[2024-12-07 08:54] LABS: Hematocrit 41.0 % (37.0-47.0); Hemoglobin 12.3 g/dL (12.0-15.0); Immature Granulocyte Percent A 0.9 % (0-0.5); Lymphocytes Absolute Auto 3.92 K/mm3 (0.9-3.2); Mean Corpuscular HGB Conc 30.0 g/dl (32-36); Mean Corpuscular Hemoglobin 26.5 pg (26-34); Mean Corpuscular Volume 88.2 fl (80-100); Nucleated Red Blood Cells Absolute Auto 0.000 K/mm3 (0.0-0.012); Nucleated Red Blood Cells Perc 0.0 % (0.0-0.2); Platelet Count Result 388 k/mm3 (150-375); Red Blood Count 4.65 M/mm3 (4.2-5.4); White Blood Count 16.5 K/mm3 (4.5-10.0)
--- NOTE | 2024-12-07 09:08 | P.PNIM_ITS ---
Progress Note: A&P Assessment and Plan (1) Acute exacerbation of chronic obstructive pulmonary disease: Code(s): J44.1 - Chronic obstructive pulmonary disease with (acute) exacerbation Status: Acute (2) CAP (community acquired pneumonia): Qualifiers: Laterality: right Lung location: lower lobe of lung Qualified Code(s): J18.9 - Pneumonia, unspecified organism Code(s): J18.9 - Pneumonia, unspecified organism Status: Acute (3) Acute on chronic hypoxic respiratory failure: Code(s): J96.21 - Acute and chronic respiratory failure with hypoxia Status: Acute (4) Acute on chronic respiratory failure with hypoxia and hypercapnia: Code(s): J96.21 - Acute and chronic respiratory failure with hypoxia; J96.22 - Acute and chronic respiratory failure with hypercapnia Status: Acute (5) Hypertension: Code(s): I10 - Essential (primary) hypertension Status: Chronic Plan (1) Acute on chronic respiratory failure with hypoxia and hypercapnia: Code(s): J96.21 - Acute and chronic respiratory failure with hypoxia; J96.22 - Acute and chronic respiratory failure with hypercapnia Status: Acute Assessment and Plan: Patient presents with SOB. ABG - 7.46/48/54 on 3L CXR concerning for infection and possible pulmonary nodule CT chest without contrast showing diffuse tree-in-bud opacities with severe bronchiectasis, concerning for atypical infection, mild cardiomegaly and trace pericardial effusion. Acute on chronic respiratory failure secondary to COPD exacerbation and atypical pneumonia with underlying bronchiectasis. Started on steroids, bronchodilators and abx. Pulmonary consulted and appreciate their input. Able to come off bipap. Able to wean down on oxygen Continue bipap as needed in the night, Patient is on room air daytime (2) CAP (community acquired pneumonia): Qualifiers: Laterality: right Lung location: lower lobe of lung Qualified Code(s): J18.9 - Pneumonia, unspecified organism Code(s): J18.9 - Pneumonia, unspecified organism Status: Acute Assessment and Plan: Imaging as above. She did not meet SIRS criteria. She failed 2 course of Levaquin prior to admission. Started on ceftriaxone and azithromycin in the ED but changed to cefepime, azithromycin, and vancomycin then changed to Meropenem for pseudomonal coverage MRSA nasal swab negative so Vancomycin discontinued. Azithro stopped and Levaquin added for atypical coverage COVID, RSV and influenza PCR negative. Respiratory viral panel ordered. BCx NGTD Sputum culture growing gram positive cocci AFB Sputum negative to date. Mycoplasma, Legionella Ag, pneumococcal Ag ordered Aspergillus testing and testing for connective tissue disease sent WBC higher but felt related to steroids. Continue Levaquin and Meropenem. Patient is found have rhinovirus infection, completed steroid and Levaquin Continue her home theophylline 400 q.day, montelukast 10 q.day, vest treatment twice a day. Continue Cornet flutter valve. guaifenesin to 1200 mg p.o. b.i.d. p.r.n.. She is only on p.r.n. inhalers at home and change her DuoNebs to p.r.n.. 7 days meropenem till 13. (3) COPD exacerbation: Code(s): J44.1 - Chronic obstructive pulmonary disease with (acute) exacerbation Status: Inactive Assessment and Plan: As above. Having some wheezing. On Huber-24 and level pending received Solu-Medrol. Continue prednisone 40 q.day (day 5 steroids). Continue abx, nebs and steroids. Wean O2 as toelrated (4) Hypertension: Code(s): I10 - Essential (primary) hypertension Status: Chronic Assessment and Plan: Patient's blood pressure was reviewed on 12/03 Blood pressure remains well controlled. Will continue to monitor (5) Bronchiectasis: Code(s): J47.9 - Bronchiectasis, uncomplicated Status: Acute Assessment and Plan: Patient with bronchiectasis and has has asthma since childhood. RF mildly elevated at 19. IgG slightly low at 670. The remainder of the workup pending. Followup on results Subjective Date/time seen: 12/07/24 09:08 Interval history: I saw exam patient today, patient continue to improve. Denies chest pain abdomen pain nausea vomiting diarrhea Dyspnea is improving Exam Narrative: GENERAL: Pleasant, in no acute distress. Well-nourished. - EYES: EOMI. Anicteric. - HENT: Moist mucous membranes. - LUNGS: Coarse breath sound bilaterall y - CARDIOVASCULAR: Regular rate and rhyth m. No murmur. No JVD. - ABDOMEN: Soft, non-tender and non-dist ended. No palpable masses. - EXTREMITIES: No edema. Peripheral puls es 2+. Non-tender. - NEUROLOGIC: No focal neurological defi cits. CN II-XII grossly intact. - PSYCHIATRIC: Awake, Alert and oriented x 3. Appropriate mood and affect. - SKIN: No rashes or lesions. Warm. - LYMPH: No cervical lymphadenopathy. Objective Data Vital Signs Vital Signs: Vital Signs - 24 hr 12/06/24 11:15 12/06/24 11:20 12/06/24 11:21 Temperature Pulse Rate Respiratory Rate Blood Pressure Pulse Oximetry 96 85 L 87 L Oxygen Delivery Room Air Room Air Nasal Cannula Oxygen Flow Rate 1 12/06/24 11:22 12/06/24 11:25 12/06/24 14:00 Temperature 98.2 F Pulse Rate 85 Respiratory Rate 14 Blood Pressure 116/58 L Pulse Oximetry 95 96 97 Oxygen Delivery Nasal Cannula Room Air Oxygen Flow Rate 2 12/06/24 20:00 12/06/24 20:15 12/06/24 20:22 Temperature 97.4 F L Pulse Rate 82 Respiratory Rate 20 Blood Pressure 119/69 Pulse Oximetry 96 96 Oxygen Delivery Room Air Room Air Oxygen Flow Rate 12/06/24 20:45 12/06/24 23:46 12/07/24 01:50 Temperature 97.4 F L Pulse Rate 82 76 73 Respiratory Rate 20 Blood Pressure 118/70 Pulse Oximetry 96 98 96 Oxygen Delivery CPAP CPAP Oxygen Flow Rate 12/07/24 04:56 12/07/24 08:00 12/07/24 08:49 Temperature 97.5 F L Pulse Rate 78 68 68 Respiratory Rate 20 Blood Pressure 123/72 130/61 Pulse Oximetry 94 Oxygen Delivery Oxygen Flow Rate Intake/Output Intake/Output: Intake & Output 12/04/24 12/05/24 12/06/24 12/07/24 23:59 23:59 23:59 23:59 Intake Total 1820 1443 1058 200 Output Total 1000 Balance 820 1443 1058 200 Meds/Results Medications: Active Medications Generic Name Dose Route Start Last Admin Trade Name Freq PRN Reason Stop Dose Admin Acetaminophen 650 mg 12/01/24 19:41 Acetaminophen 325 Mg Tablet PO Q6H PRN Mild Pain (1-3) or Fever Albuterol/Ipratropium 3 ml 12/06/24 09:06 Ipratropium 0.5 Mg/Albuterol Sulfate 2.5 Mg Ampul.Neb 3 Ml INHALATION Q6HRT PRN Wheezing Benzonatate 100 mg 12/01/24 19:40 Benzonatate 100 Mg Capsule PO TID PRN Cough Clopidogrel Bisulfate 75 mg 12/02/24 09:00 12/07/24 08:49 Clopidogrel Bisulfate 75 Mg Tablet PO 75 mg DAILY [place] Administration Digoxin 125 mcg 12/02/24 09:00 12/07/24 08:49 Digoxin Tab 125 Mcg Tablet PO 125 mcg DAILY [place] Administration Enoxaparin Sodium 40 mg 12/02/24 09:00 12/07/24 08:50 Enoxaparin 40 Mg/0.4 Ml Syringe SUB-Q 40 mg DAILY [place] Administration Ergocalciferol 1,250 mcg 12/12/24 09:00 Ergocalciferol (Vitamin D2) 1,250 Mcg (50,000 Units) Capsule PO [id number] [place] Guaifenesin 1,200 mg 12/06/24 09:06 Guaifenesin 12 Hr 600 Mg Tabcr PO Q12HR PRN Congestion Hydralazine HCl 50 mg 12/02/24 09:00 12/07/24 08:49 Hydralazine Hcl 50 Mg Tablet PO 50 mg DAILY [place] Administration Hydrochlorothiazide 25 mg 12/02/24 09:00 12/07/24 08:49 Hydrochlorothiazide 25 Mg Tablet PO 25 mg DAILY [place] Administration Meropenem 1 gm/ Sodium 100 mls @ 200 mls/hr 12/02/24 18:00 12/07/24 05:05 Chloride IVPB 12/08/24 18:29 200 mls/hr Q12H [place] Administration Isosorbide Mononitrate 30 mg 12/02/24 09:00 12/07/24 08:49 Isosorbide Mononitrate 30 Mg Tab.Er.24h PO 30 mg DAILY [place] Administration Montelukast Sodium 10 mg 12/01/24 23:15 12/06/24 20:15 Montelukast Sodium 10 Mg Tablet PO 10 mg QHS [place] Administration Huber-24 Er 400mg 1 each 12/02/24 09:00 12/07/24 08:50 Capsule *Use Home BY MOUTH 01/01/25 08:59 1 each Supply* DAILY [place] Administration Pantoprazole Sodium 40 mg 12/02/24 09:00 12/07/24 08:49 Pantoprazole 40 Mg Tablet PO 40 mg Q12HR [place] Administration Prochlorperazine Edisylate 10 mg 12/01/24 19:41 Prochlorperazine Edisylate 10 Mg/2 Ml Vial IV PUSH Q6H PRN Nausea And Vomiting Rosuvastatin Calcium 40 mg 12/02/24 09:00 12/07/24 08:48 Rosuvastatin 20 Mg Tablet PO 40 mg DAILY [place] Administration Radiology Results: ITS Impressions Chest CT 12/01/24 22:09 IMPRESSION: Diffuse tree-in-bud opacities with severe bronchiectasis, concerning for atypical infection, including but not limited to: tuberculosis, MAC, fungal infection, and bacterial bronchopneumonia. Chronic aspiration considered less likely given the distribution. Mild cardiomegaly. Trace pericardial effusion. Results reported telephonically to Debbie Mac RN by Dr. Willson at 10:29 PM on 12/01/2024. Chest X-Ray 12/05/24 07:42 Impression: COPD or other chronic interstitial change. Possible mild haziness right lung base. Correlate for pneumonia or minimal pulmonary edema. Stable cardiomegaly. Labs Labs: Laboratory Results - last 24 hr 12/03/24 12/06/24 12/07/24 06:07 09:16 08:47 WBC 15.6 H 16.5 H RBC 4.47 4.65 Hgb 12.0 12.3 Hct 39.1 41.0 MCV 87.5 88.2 MCH 26.8 26.5 MCHC 30.7 L 30.0 L RDW 14.7 H 14.9 H Plt Count 349 388 H MPV 9.2 9.4 Immature Gran % (Auto) 1.5 H 0.9 H Neut % (Auto) 68.1 60.9 Lymph % (Auto) 20.7 23.8 [place] % (Auto) 8.0 9.3 H Eos % (Auto) 1.5 4.9 H Baso % (Auto) 0.2 0.2 Lymph # (Auto) 3.23 H 3.92 H [place] # (Auto) 1.3 H 1.5 H Eos # (Auto) 0.2 0.8 H Baso # (Auto) 0.0 0.0 Abs Immat Gran (auto) 0.23 H 0.15 H Absolute Neuts (auto) 10.6 H 10.0 H Absolute Nucleated RBC 0.000 0.000 Nucleated RBC % 0.0 0.0 Sodium 137 Potassium 3.6 Chloride 91 L Carbon Dioxide > 40 H Anion Gap BUN 32 H Creatinine 1.00 Estim Creat Clear Calc 33 Estimated GFR 54 L Glucose 136 H Calcium 10.2 IgE 2 L EROS Screen Negative A. fumigatus IgG Ab 62.8 H
[2024-12-07 09:16] LABS: Blood Urea Nitrogen 31 mg/dL (7-17); Calcium 9.9 mg/dL (8.4-10.2); Chloride 91 mmol/L (98-107); Estimated CRCL calculation 39 ml/min; Estimated Glomerular Filt Rate > 60; Glucose 100 mg/dL (65-110); Potassium 4.3 mmol/L (3.4-5.0); Sodium 137 mmol/L (137-145)
[2024-12-07 09:18] LABS: Carbon Dioxide > 40 mmol/L (22-30)
[2024-12-07] MEDS: SENNA/DOCUSATE SODIUM TABLET 1 TAB PO ×2 (11:15→17:11)
[2024-12-07] MEDS: SALINE 0.65% NAS SOLN 44 ML BTL 1 SPRAY NASAL (11:15)
[2024-12-07] MEDS: MONTELUKAST SODIUM 10 MG TABLET PO (21:04)
[2024-12-08] VITALS (7 sets, daily range): BP systolic 106–120; BP diastolic 56–66; PULSE 68–85; RESP 18–20; TEMP 36.5–36.6; O2SAT 91–96
[2024-12-08] MEDS: MEROPENEM 1 GM in SODIUM CHLORIDE 0.9% IV 100 ML 200 ML IVPB ×2 (05:26→14:18)
[2024-12-08 05:56] LABS: Estimated CRCL calculation 34 ml/min; Estimated Glomerular Filt Rate 55
--- NOTE | 2024-12-08 08:21 | P.PNIM_ITS ---
Progress Note: A&P Assessment and Plan (1) Acute exacerbation of chronic obstructive pulmonary disease: Code(s): J44.1 - Chronic obstructive pulmonary disease with (acute) exacerbation Status: Acute (2) CAP (community acquired pneumonia): Qualifiers: Laterality: right Lung location: lower lobe of lung Qualified Code(s): J18.9 - Pneumonia, unspecified organism Code(s): J18.9 - Pneumonia, unspecified organism Status: Acute (3) Acute on chronic hypoxic respiratory failure: Code(s): J96.21 - Acute and chronic respiratory failure with hypoxia Status: Acute (4) Acute on chronic respiratory failure with hypoxia and hypercapnia: Code(s): J96.21 - Acute and chronic respiratory failure with hypoxia; J96.22 - Acute and chronic respiratory failure with hypercapnia Status: Acute (5) Hypertension: Code(s): I10 - Essential (primary) hypertension Status: Chronic Plan (1) Acute on chronic respiratory failure with hypoxia and hypercapnia: Code(s): J96.21 - Acute and chronic respiratory failure with hypoxia; J96.22 - Acute and chronic respiratory failure with hypercapnia Status: Acute Assessment and Plan: Patient presents with SOB. ABG - 7.46/48/54 on 3L CXR concerning for infection and possible pulmonary nodule CT chest without contrast showing diffuse tree-in-bud opacities with severe bronchiectasis, concerning for atypical infection, mild cardiomegaly and trace pericardial effusion. Acute on chronic respiratory failure secondary to COPD exacerbation and atypical pneumonia with underlying bronchiectasis. received steroids, bronchodilators and abx. Pulmonary consulted and appreciate their input. Continue bipap as needed in the night, Patient is on room air daytime (2) CAP (community acquired pneumonia): Qualifiers: Laterality: right Lung location: lower lobe of lung Qualified Code(s): J18.9 - Pneumonia, unspecified organism Code(s): J18.9 - Pneumonia, unspecified organism Status: Acute Assessment and Plan: Imaging as above. She did not meet SIRS criteria. She failed 2 course of Levaquin prior to admission. Started on ceftriaxone and azithromycin in the ED but changed to cefepime, azithromycin, and vancomycin then changed to Meropenem for pseudomonal coverage MRSA nasal swab negative so Vancomycin discontinued. Azithro stopped and Levaquin added for atypical coverage COVID, RSV and influenza PCR negative. Respiratory viral panel ordered. x NGTD Sputum culture growing gram positive cocci AFB Sputum negative to date. Mycoplasma, Legionella Ag, pneumococcal Ag ordered Aspergillus testing and testing for connective tissue disease sent WBC higher but felt related to steroids. Continue Levaquin and Meropenem. Patient is found have rhinovirus infection, completed steroid and Levaquin 7 days meropenem till 13. (3) COPD exacerbation: Code(s): J44.1 - Chronic obstructive pulmonary disease with (acute) exacerbation Status: Inactive Assessment and Plan: As above. Having some wheezing. On Huber-24 and level pending received Solu-Medrol. Finished prednisone 40 q.day (day 5 steroids). Continue her home theophylline 400 q.day, montelukast 10 q.day, vest treatment twice a day. Continue Cornet flutter valve. guaifenesin to 1200 mg p.o. b.i.d. p.r.n.. She is only on p.r.n. inhalers at home and change her DuoNebs to p.r.n.. (4) Hypertension: Code(s): I10 - Essential (primary) hypertension Status: Chronic Assessment and Plan: Patient's blood pressure was reviewed on 12/03 Blood pressure remains well controlled. Will continue to monitor (5) Bronchiectasis: Code(s): J47.9 - Bronchiectasis, uncomplicated Status: Acute Assessment and Plan: Patient with bronchiectasis and has has asthma since childhood. RF mildly elevated at 19. IgG slightly low at 670. The remainder of the workup pending. Followup on results Plans discharge patient today after receiving antibiotics if no complications Subjective Date/time seen: 12/08/24 08:21 Interval history: I saw exam patient today, patient continue to improve. Denies chest pain abdomen pain nausea vomiting diarrhea Dyspnea is improving Patient is afebrile, on room air Exam Narrative: GENERAL: Pleasant, in no acute distress. Well-nourished. - EYES: EOMI. Anicteric. - HENT: Moist mucous membranes. - LUNGS: Coarse breath sound bilaterall y - CARDIOVASCULAR: Regular rate and rhyth m. No murmur. No JVD. - ABDOMEN: Soft, non-tender and non-dist ended. No palpable masses. - EXTREMITIES: No edema. Peripheral puls es 2+. Non-tender. - NEUROLOGIC: No focal neurological defi cits. CN II-XII grossly intact. - PSYCHIATRIC: Awake, Alert and oriented x 3. Appropriate mood and affect. - SKIN: No rashes or lesions. Warm. - LYMPH: No cervical lymphadenopathy. Objective Data Vital Signs Vital Signs: Vital Signs - 24 hr 12/07/24 08:35 12/07/24 08:49 12/07/24 08:50 Temperature Pulse Rate 68 Respiratory Rate Blood Pressure Pulse Oximetry 94 94 Oxygen Delivery Room Air Nasal Cannula Oxygen Flow Rate 2 Fraction of Inspired Oxygen 12/07/24 16:05 12/07/24 20:00 12/07/24 20:54 Temperature 97.9 F Pulse Rate 96 89 89 Respiratory Rate 20 20 Blood Pressure 103/66 Pulse Oximetry 96 92 92 Oxygen Delivery CPAP CPAP Oxygen Flow Rate Fraction of Inspired Oxygen 21 12/07/24 20:54 12/08/24 00:00 12/08/24 01:45 Temperature 97.8 F Pulse Rate 85 84 Respiratory Rate 18 Blood Pressure 120/60 Pulse Oximetry 92 96 95 Oxygen Delivery CPAP Oxygen Flow Rate Fraction of Inspired Oxygen 12/08/24 06:26 Temperature 97.7 F Pulse Rate 71 Respiratory Rate 18 Blood Pressure 106/66 Pulse Oximetry 91 Oxygen Delivery Oxygen Flow Rate Fraction of Inspired Oxygen Intake/Output Intake/Output: Intake & Output 12/05/24 12/06/24 12/07/24 12/08/24 23:59 23:59 23:59 23:59 Intake Total 1443 1058 1150 100 Balance 1443 1058 1150 100 Meds/Results Medications: Active Medications Generic Name Dose Route Start Last Admin Trade Name Freq PRN Reason Stop Dose Admin Acetaminophen 650 mg 12/01/24 19:41 Acetaminophen 325 Mg Tablet PO Q6H PRN Mild Pain (1-3) or Fever Albuterol/Ipratropium 3 ml 12/06/24 09:06 Ipratropium 0.5 Mg/Albuterol Sulfate 2.5 Mg Ampul.Neb 3 Ml INHALATION Q6HRT PRN Wheezing Benzonatate 100 mg 12/01/24 19:40 Benzonatate 100 Mg Capsule PO TID PRN Cough Clopidogrel Bisulfate 75 mg 12/02/24 09:00 12/07/24 08:49 Clopidogrel Bisulfate 75 Mg Tablet PO 75 mg DAILY [place] Administration Digoxin 125 mcg 12/02/24 09:00 12/07/24 08:49 Digoxin Tab 125 Mcg Tablet PO 125 mcg DAILY [place] Administration Enoxaparin Sodium 40 mg 12/02/24 09:00 12/07/24 08:50 Enoxaparin 40 Mg/0.4 Ml Syringe SUB-Q 40 mg DAILY [place] Administration Ergocalciferol 1,250 mcg 12/12/24 09:00 Ergocalciferol (Vitamin D2) 1,250 Mcg (50,000 Units) Capsule PO [id number] [place] Guaifenesin 1,200 mg 12/06/24 09:06 Guaifenesin 12 Hr 600 Mg Tabcr PO Q12HR PRN Congestion Hydralazine HCl 50 mg 12/02/24 09:00 12/07/24 08:49 Hydralazine Hcl 50 Mg Tablet PO 50 mg DAILY [place] Administration Hydrochlorothiazide 25 mg 12/02/24 09:00 12/07/24 08:49 Hydrochlorothiazide 25 Mg Tablet PO 25 mg DAILY [place] Administration Meropenem 1 gm/ Sodium 100 mls @ 200 mls/hr 12/02/24 18:00 12/08/24 06:22 Chloride IVPB 12/08/24 18:29 Infused Q12H [facility] Infusion Isosorbide Mononitrate 30 mg 12/02/24 09:00 12/07/24 08:49 Isosorbide Mononitrate 30 Mg Tab.Er.24h PO 30 mg DAILY [place] Administration Montelukast Sodium 10 mg 12/01/24 23:15 12/07/24 21:04 Montelukast Sodium 10 Mg Tablet PO 10 mg QHS [facility] Administration Huber-24 Er 400mg 1 each 12/02/24 09:00 12/07/24 08:50 Capsule *Use Home BY MOUTH 01/01/25 08:59 1 each Supply* DAILY [facility] Administration Pantoprazole Sodium 40 mg 12/02/24 09:00 12/07/24 21:04 Pantoprazole 40 Mg Tablet PO 40 mg Q12HR [place] Administration Prochlorperazine Edisylate 10 mg 12/01/24 19:41 Prochlorperazine Edisylate 10 Mg/2 Ml Vial IV PUSH Q6H PRN Nausea And Vomiting Rosuvastatin Calcium 40 mg 12/02/24 09:00 12/07/24 08:48 Rosuvastatin 20 Mg Tablet PO 40 mg DAILY [place] Administration Senna/Docusate Sodium 1 tab 12/07/24 09:35 12/07/24 17:11 Senna/Docusate Sodium Tablet PO 1 tab BID [place] Administration Sodium Chloride 1 spray 12/07/24 10:46 12/07/24 11:15 Saline 0.65% Garfield Soln 44 Ml Btl NASAL 1 spray Q6HR PRN Administration Congestion Radiology Results: ITS Impressions Chest CT 12/01/24 22:09 IMPRESSION: Diffuse tree-in-bud opacities with severe bronchiectasis, concerning for atypical infection, including but not limited to: tuberculosis, MAC, fungal infection, and bacterial bronchopneumonia. Chronic aspiration considered less likely given the distribution. Mild cardiomegaly. Trace pericardial effusion. Results reported telephonically to Debbie Mac RN by Dr. Willson at 10:29 PM on 12/01/2024. Chest X-Ray 12/05/24 07:42 Impression: COPD or other chronic interstitial change. Possible mild haziness right lung base. Correlate for pneumonia or minimal pulmonary edema. Stable cardiomegaly. Labs Labs: Laboratory Results - last 24 hr 12/03/24 12/03/24 12/07/24 05:58 06:07 08:47 WBC 16.5 H RBC 4.65 Hgb 12.3 Hct 41.0 MCV 88.2 MCH 26.5 MCHC 30.0 L RDW 14.9 H Plt Count 388 H MPV 9.4 Immature Gran % (Auto) 0.9 H Neut % (Auto) 60.9 Lymph % (Auto) 23.8 [place] % (Auto) 9.3 H Eos % (Auto) 4.9 H Baso % (Auto) 0.2 Lymph # (Auto) 3.92 H [place] # (Auto) 1.5 H Eos # (Auto) 0.8 H Baso # (Auto) 0.0 Abs Immat Gran (auto) 0.15 H Absolute Neuts (auto) 10.0 H Absolute Nucleated RBC 0.000 Nucleated RBC % 0.0 Sodium 137 Potassium 4.3 Chloride 91 L Carbon Dioxide > 40 H Anion Gap BUN 31 H Creatinine 0.85 Estim Creat Clear Calc 39 Estimated GFR > 60 Glucose 100 Calcium 9.9 Aspergillus flavus Ab Negative Aspergill fumigatus Ab Negative Aspergillus niger Ab Negative Miscellaneous Test Comment 12/08/24 05:05 WBC RBC Hgb Hct MCV MCH MCHC RDW Plt Count MPV Immature Gran % (Auto) Neut % (Auto) Lymph % (Auto) [place] % (Auto) Eos % (Auto) Baso % (Auto) Lymph # (Auto) [place] # (Auto) Eos # (Auto) Baso # (Auto) Abs Immat Gran (auto) Absolute Neuts (auto) Absolute Nucleated RBC Nucleated RBC % Sodium Potassium Chloride Carbon Dioxide Anion Gap BUN Creatinine 0.98 Estim Creat Clear Calc 34 Estimated GFR 55 L Glucose Calcium Aspergillus flavus Ab Aspergill fumigatus Ab Aspergillus niger Ab Miscellaneous Test
[2024-12-08] MEDS: IPRATROPIUM 0.5 MG/ALBUTEROL SULFATE 2.5 MG AMPUL.NEB 3 ML INHALATION (08:23)
--- NOTE | 2024-12-08 08:24 | P.DS_ITS ---
DS: Admitting Diagnosis Discharge Date 12/08/24 Admitting Diagnosis Acute exacerbation of chronic obstructive pulmonary disease: Code(s): J44.1 - Chronic obstructive pulmonary disease with (acute) exacerbation Status: Acute (2) CAP (community acquired pneumonia): Qualifiers: Laterality: right Lung location: lower lobe of lung Qualified Code(s): J18.9 - Pneumonia, unspecified organism Code(s): J18.9 - Pneumonia, unspecified organism Status: Acute (3) Acute on chronic hypoxic respiratory failure: Code(s): J96.21 - Acute and chronic respiratory failure with hypoxia Status: Acute (4) Acute on chronic respiratory failure with hypoxia and hypercapnia: Code(s): J96.21 - Acute and chronic respiratory failure with hypoxia; J96.22 - Acute and chronic respiratory failure with hypercapnia Status: Acute (5) Hypertension: Code(s): I10 - Essential (primary) hypertension Status: Chronic DS: Discharge Diagnosis Discharge Diagnosis (1) Acute exacerbation of chronic obstructive pulmonary disease: Code(s): J44.1 - Chronic obstructive pulmonary disease with (acute) exacerbation Status: Acute (2) CAP (community acquired pneumonia): Qualifiers: Laterality: right Lung location: lower lobe of lung Qualified Code(s): J18.9 - Pneumonia, unspecified organism Code(s): J18.9 - Pneumonia, unspecified organism Status: Acute (3) Acute on chronic hypoxic respiratory failure: Code(s): J96.21 - Acute and chronic respiratory failure with hypoxia Status: Acute (4) Acute on chronic respiratory failure with hypoxia and hypercapnia: Code(s): J96.21 - Acute and chronic respiratory failure with hypoxia; J96.22 - Acute and chronic respiratory failure with hypercapnia Status: Acute (5) Hypertension: Code(s): I10 - Essential (primary) hypertension Status: Chronic DS: Summary Hospital Course Hospital Course: 74 y/o F with PMH of asthma, COPD, chronic hypoxic respiratory failure on supplemental O2 at baseline presents here with shortness of breath. The patient presents here from a local urgent care for further evaluation of worsening shortness of breath. The patient reports the shortness of breath has been ongoing for the past 3 weeks. She was initially treated with steroids and Levaquin. Symptoms did not resolved and she was treated with a 2nd course of Levaquin at a higher strength - still has two doses left. Despite 2nd round of antibiotics, she reports she has continued worsened.The patient also reports she has been using her nebulizer 3 times a day without improvement. Shortness of breath is accompanied by a productive cough (yellow sputum). She denies fever, chills, body aches, nausea, vomiting diarrhea, chest pain, palpitations. She follows with a glass calibrator, Virgil CUEVA at [facility]. She wears 2L NC at baseline, she noted at home on her home pulse ox that her O2 was dropping into the 70s. She then titrated herself to 3L NC which she reports gave her little relief. 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 Initial VS at presentation: 98? F, HR 78, RR 20, 153/90, and 98% on 3L NC. ED workup showed: WBC 18.7, hemoglobin 11.8, coags within normal limits, D- dimer are within normal limits when age adjusted, ABG showed a pH 7.459/CO2 47.12/253/O2 saturation 89.3% on 3L nasal cannula, creatinine 1.17 and GFR 45 (no previous available for comparison), BNP within normal limits when adjusted for age, initial troponin negative, viral PCR negative. CXR showed reticular nodular right lower lung opacities may represent infection, including atypical variance, overlying chronic emphysematous/interstitial changes, possible 1.3 cm right lower lung pulmonary nodule versus nodular appearing consolidation from infection. The following med issues have been addressed during hospitalization (1) Acute on chronic respiratory failure with hypoxia and hypercapnia: Code(s): J96.21 - Acute and chronic respiratory failure with hypoxia; J96.22 - Acute and chronic respiratory failure with hypercapnia Status: Acute Assessment and Plan: Patient presents with SOB. ABG - 7.46/48/54 on 3L CXR concerning for infection and possible pulmonary nodule CT chest without contrast showing diffuse tree-in-bud opacities with severe bronchiectasis, concerning for atypical infection, mild cardiomegaly and trace pericardial effusion. Acute on chronic respiratory failure secondary to COPD exacerbation and atypical pneumonia with underlying bronchiectasis. received steroids, bronchodilators and abx. Pulmonary consulted and appreciate their input. Continue bipap as needed in the night, Patient is on room air daytime (2) CAP (community acquired pneumonia): Qualifiers: Laterality: right Lung location: lower lobe of lung Qualified Code(s): J18.9 - Pneumonia, unspecified organism Code(s): J18.9 - Pneumonia, unspecified organism Status: Acute Assessment and Plan: Imaging as above. She did not meet SIRS criteria. She failed 2 course of Levaquin prior to admission. Started on ceftriaxone and azithromycin in the ED but changed to cefepime, azithromycin, and vancomycin then changed to Meropenem for pseudomonal coverage MRSA nasal swab negative so Vancomycin discontinued. Azithro stopped and Levaquin added for atypical coverage COVID, RSV and influenza PCR negative. Respiratory viral panel ordered. BCx NGTD Sputum culture growing gram positive cocci AFB Sputum negative to date. Mycoplasma, Legionella Ag, pneumococcal Ag ordered Aspergillus testing and testing for connective tissue disease sent WBC higher but felt related to steroids. Continue Levaquin and Meropenem. Patient is found have rhinovirus infection, completed steroid and Levaquin 7 days meropenem till 13. (3) COPD exacerbation: Code(s): J44.1 - Chronic obstructive pulmonary disease with (acute) exacerbation Status: Inactive Assessment and Plan: As above. Having some wheezing. On Huber-24 and level pending received Solu-Medrol. Finished prednisone 40 q.day (day 5 steroids). Continue her home theophylline 400 q.day, montelukast 10 q.day, vest treatment twice a day. Continue Cornet flutter valve. guaifenesin to 1200 mg p.o. b.i.d. p.r.n.. She is only on p.r.n. inhalers at home and change her DuoNebs to p.r.n.. (4) Hypertension: Code(s): I10 - Essential (primary) hypertension Status: Chronic Assessment and Plan: Patient's blood pressure was reviewed on 12/03 Blood pressure remains well controlled. Will continue to monitor (5) Bronchiectasis: Code(s): J47.9 - Bronchiectasis, uncomplicated Status: Acute Assessment and Plan: Patient with bronchiectasis and has has asthma since childhood. RF mildly elevated at 19. IgG slightly low at 670. The remainder of the workup pending. Followup on results Plans discharge patient today after receiving antibiotics if no complications Time Spent with Patient Time attestation: Total time spent providing and/or coordinating discharge services: Exam Narrative: GENERAL: Pleasant, in no acute distress. Well-nourished. - EYES: EOMI. Anicteric. - HENT: Moist mucous membranes. - LUNGS: Coarse breath sound bilaterall y - CARDIOVASCULAR: Regular rate and rhyth m. No murmur. No JVD. - ABDOMEN: Soft, non-tender and non-dist ended. No palpable masses. - EXTREMITIES: No edema. Peripheral puls es 2+. Non-tender. - NEUROLOGIC: No focal neurological defi cits. CN II-XII grossly intact. - PSYCHIATRIC: Awake, Alert and oriented x 3. Appropriate mood and affect. - SKIN: No rashes or lesions. Warm. - LYMPH: No cervical lymphadenopathy. DS: Data Data Completed and Pending Labs on day of discharge: Labs from last 24 hours 12/08/24 12/07/24 12/03/24 05:05 08:47 06:07 WBC 16.5 H RBC 4.65 Hgb 12.3 Hct 41.0 MCV 88.2 MCH 26.5 MCHC 30.0 L RDW 14.9 H Plt Count 388 H MPV 9.4 Immature Gran % (Auto) 0.9 H Neut % (Auto) 60.9 Lymph % (Auto) 23.8 [place] % (Auto) 9.3 H Eos % (Auto) 4.9 H Baso % (Auto) 0.2 Lymph # (Auto) 3.92 H [place] # (Auto) 1.5 H Eos # (Auto) 0.8 H Baso # (Auto) 0.0 Abs Immat Gran (auto) 0.15 H Absolute Neuts (auto) 10.0 H Absolute Nucleated RBC 0.000 Nucleated RBC % 0.0 Sodium 137 Potassium 4.3 Chloride 91 L Carbon Dioxide > 40 H Anion Gap BUN 31 H Creatinine 0.98 0.85 Estim Creat Clear Calc 34 39 Estimated GFR 55 L > 60 Glucose 100 Calcium 9.9 Aspergillus flavus Ab Negative Aspergill fumigatus Ab Negative Aspergillus niger Ab Negative Miscellaneous Test 12/03/24 05:58 WBC RBC Hgb Hct MCV MCH MCHC RDW Plt Count MPV Immature Gran % (Auto) Neut % (Auto) Lymph % (Auto) [place] % (Auto) Eos % (Auto) Baso % (Auto) Lymph # (Auto) [place] # (Auto) Eos # (Auto) Baso # (Auto) Abs Immat Gran (auto) Absolute Neuts (auto) Absolute Nucleated RBC Nucleated RBC % Sodium Potassium Chloride Carbon Dioxide Anion Gap BUN Creatinine Estim Creat Clear Calc Estimated GFR Glucose Calcium Aspergillus flavus Ab Aspergill fumigatus Ab Aspergillus niger Ab Miscellaneous Test Comment Preliminary micro results at discharge 12/04/24 04:24 Acid Fast Bacilli Culture - Preliminary Sputum 12/05/24 10:43 Acid Fast Bacilli Culture - Preliminary Sputum 12/04/24 04:23 Fungal Culture - Preliminary Sputum 12/03/24 06:45 Acid Fast Bacilli Culture - Preliminary Sputum Discharge Plan Discharge Attending physician on discharge: Alan Siegel Consulting providers: Monty Victor Discharging Clinician: Alan Siegel Anticipated Discharge Date/Time: 12/08/24 14:25 Patient Disposition: Home Activity: as tolerated Diet: as tolerated and heart healthy Patient Instructions: Antibiotic Form, Chronic Lung Disease and Infection Prevention (GEN), Energy Conservation Techniques (GEN), Blood Thinners (DC), Suicide Prevention (DC) Patient Language: Belgian Stand Alone Forms: General Discharge Information Follow-up/Referrals: C[place],MD LAN [Primary Care Provider] - (Patient needs to see primary care doctor in 1 week) Monty Victor MD [Physician] - (Patient needs to call pulmonology to schedule appointment for follow-up) Discharge Medications: New ipratropium-albuterol 0.5 mg-3 mg(2.5 mg base)/3 mL Solution For Nebulization 3 ml inhalation Q6HRT PRN (Reason: Wheezing) Qty: 60 1RF guaifenesin [Mucus Relief ER] 600 mg Tablet Extended Release 12hr 1,200 mg PO Q12HR PRN (Reason: Congestion) Qty: 60 0RF Continued isosorbide mononitrate 30 mg tablet extended release 24 hr 30 mg PO DAILY clopidogrel 75 mg tablet 75 mg PO DAILY omeprazole 40 mg capsule,delayed release(DR/EC) 40 mg PO QPM montelukast 10 mg tablet 10 mg PO QPM hydralazine 50 mg tablet 50 mg PO DAILY hydrochlorothiazide 25 mg tablet 25 mg PO DAILY digoxin 125 mcg (0.125 mg) tablet 0.125 mg PO DAILY ergocalciferol (vitamin D2) 1,250 mcg (50,000 unit) capsule 1,250 mcg PO .ONE EVERY TWO WEEKS levofloxacin 750 mg tablet 750 mg PO DAILY rosuvastatin 40 mg tablet 40 mg PO DAILY Dupixent Syringe 300 mg/2 mL syringe 300 mg SUBCUT .EVERY 2 WEEKS Huber-24 400 mg capsule,extended release 24hr 400 mg PO DAILY Qty: 30 1RF Airsupra 90-80 mcg/actuation HFA aerosol inhaler 2 inh inhalation ONCE PRN (Reason: shortness of breath) 30 Days Qty: 10.7 1RF Rx Instructions: as a single dose; may repeat up to 6 doses per day (12 inhalations) Discontinued prednisone 10 mg tablet 10 mg PO DAILY azithromycin 500 mg tablet 500 mg PO WEEKLY Date of admission: 12/02/24 09:17 Primary Care Provider: C[place]ANDLAN Admitting Provider: Doug Malhotra Attending physician on admission: Doug Malhotra Condition: Stable
[2024-12-08] MEDS: ROSUVASTATIN 20 MG TABLET 40 MG PO (08:32)
[2024-12-08] MEDS: DIGOXIN TAB 125 MCG TABLET PO (08:33)
[2024-12-08] MEDS: ISOSORBIDE MONONITRATE 30 MG TAB.ER.24H PO (08:33)
[2024-12-08] MEDS: SENNA/DOCUSATE SODIUM TABLET 1 TAB PO (08:33)
[2024-12-08] MEDS: PANTOPRAZOLE 40 MG TABLET PO (08:33)
[2024-12-08] MEDS: CLOPIDOGREL BISULFATE 75 MG TABLET PO (08:33)
[2024-12-08] MEDS: ENOXAPARIN 40 MG/0.4 ML SYRINGE SUB-Q (08:34)
[2024-12-08] MEDS: THEOPHYLLINE 400 MG 1 EACH BY MOUTH (08:37)
== END 2024-12-08 15:45 | disposition home or self-care (01) | DRG 189 ==
LOC: ANHED 18:56 → ANHIMU 20:09 → ANHICU 12-02 00:13 → ANHIMU 12-02 17:27 → ANH2MED 12-04 17:09
PROVIDERS: Emergency Medicine; Internal Medicine Pulmonary Disease; Student in an Organized Health Care Education/Training Program; Admitting Provider Internal Medicine; Emergency Provider Physician Assistant; PCP Family Medicine; Visit Provider Hospitalist
DX: J96.21 Acute and chronic respiratory failure with hypoxia (principal); J18.9 Pneumonia, unspecified organism; J44.0 Chronic obstructive pulmonary disease with (acute) lower respiratory infection; J44.1 Chronic obstructive pulmonary disease with (acute) exacerbation; J47.0 Bronchiectasis with acute lower respiratory infection; J96.22 Acute and chronic respiratory failure with hypercapnia; I10 Essential (primary) hypertension; F32.A Depression, unspecified; F41.9 Anxiety disorder, unspecified; K21.9 Gastro-esophageal reflux disease without esophagitis; E78.5 Hyperlipidemia, unspecified; Z22.39 Carrier of other specified bacterial diseases; Z99.81 Dependence on supplemental oxygen; Z85.41 Personal history of malignant neoplasm of cervix uteri; Z90.49 Acquired absence of other specified parts of digestive tract; Z90.710 Acquired absence of both cervix and uterus
CPT/HCPCS: 36415; 36600; 71045; 71250; 80048; 80053; 80069; 80198; 80202; 82103; 82104; 82565; 82784; 82785; 82787; 82805; 83605; 83735; 83880; 84145; 84182; 84484; 85018; 85025; 85027; 85380; 85610; 85730; 86001; 86003; 86036; 86037; 86038; 86200; 86331; 86430; 86480; 86606; 86609; 86671; 86738; 87015; 87040; 87070; 87102; 87116; 87186; 87205; 87206; 87449; 87633; 87637; 87641; 87899; 93005; 94002; 94003; 94618; 94640; 94667; 94668; 94669; 94762; 96365; 96367; 96375; 97161; 97530; 99212; 99285; A9270; G0378; G0463; J0456; J0692; J0696; J1650; J1956; J2185; J2919; J3373; J3475; J7120; J7512

== ENCOUNTER 2024-12-13 12:09 | Outpatient (CLI) | payer MEDICARE, OTHER, SELFPAY ==
--- NOTE | ~2024-12-13 | XR_ITS ---
Clinical Indication: COPD, pneumonia PA and lateral views of the chest: Comparison: 12/05/2024 Findings: Persistent hazy right basilar airspace disease, compatible with pneumonia. Underlying COPD present. Cardiomediastinal silhouette is within normal limits. Osseous structures are intact. Modera te hiatal hernia present. Impression: Stable right basilar pneumonia. COPD. Moderate hiatal hernia. Reviewed, dictated and finalized at location . Impression: Stable right basilar pneumonia. COPD. Moderate hiatal hernia.
--- OUTSIDE RECORDS SUMMARY | 2024-12-13 12:23 | XMS_ITS | Continuity of Care Document ---
Author Organization [email or web address] [place] [address] [place] [address] Phone Care Team Providers Care Medical Driver Name Role Phone Olivier Ram MD Unavailable [...] thigh or abdomen 60 MG - Active albuterol sulfate 4 mg tablet take 1 tablet by oral route 3 times every day 4 MG - Active Huber-24 400 mg capsule,extended release take 1 capsule by oral route every day 400 MG - Active Procedures Procedure Date No [...] Copied on Encounter Office/outpa tient Visit, [facility], [id number] [place] [address] [address], [place], [place], [id number], [place] tel:[phone] SEC [place] VAHID Professional YAG evaluation (chief complaint) Presence of intraocular lensOther secondary cataract, right eyeNevus of irises of both eyesPunctate keratitis, bilateralEnd othelial corneal dystrophyMei bomian gland dysfunction (MGD) of both eyes 9 Yo Aguayo. [address] [facility], [facility] A, [place], [place], [id number], [place]. tel:[phone] Referring Provider: Roya Meehan, [facility] [address], [facility]. tel:[phone] [facility], [address] [place] [address] [address], [place], [place], [id number], [place] [phone] SEC Clyde REDDING Professional No Information 9 Yo Aguayo. [address] [facility], [address], [place], [place], [address], [place]. tel:[phone] [facility], [address] [place] [address] [address], [place], [place], [address], [place] [phone] [facility] No Information 4 Katina Ramirez. [address], [address], [place], [address], [place]. tel:[phone] [facility], [address] [place] [address] [address], [place], [place], [address], [place] [phone] SEC Reagan Long No Information 4 Katina Ramirez. [address], [address], [place], [address], [place]. tel:[phone] [facility], [address], [place], [place], [address], [phone] [facility] [place] No Information 0 7 4 Katina Ramirez. [address] [facility], [address], [place], [place], [facility], . tel:[phone] [facility], [address], [place], [place], [address], [phone] SEC Reagan Longyumiko No Information 201 4 Katina Ramirez. [address] [facility], [address], [place], [place], [facility], . tel:[phone] [facility], [address], [place], [place], [address], [phone] [place] Professional Psychophysic al visual disturbances SENILE NUCLEAR CATARACTPSEU DOEXFOL LENS CAPSULE Mar-2 4 Katina Ramirez. [address], [place], [place], [facility], . tel:[phone] Referring Provider: Nima Lisa OD F, [address] [facility] [place], [address]. tel:[phone] Family History Family Member Type Diagnosis Age At Onset No Information Payers Payer name Insurance type Covered democrat ID Authoriza tion(s) [place] [id number] Employers And Operating Loc 520 CI [id number] Social History Type Description Quantity Date Captured [...]
--- OUTSIDE RECORDS SUMMARY | 2024-12-13 12:23 | XMS_ITS | Encounter Summary ---
Author Organization [facility] Address [address] [place] [address] Phone Care Team Providers Care Marketing Underwriter Name Role Phone Marie Lawrence MD Primary Care Provider [phone] Khloe Herman APRN, PLACEMENT SECRETARY Unavailable Encounter Details Date Type Department Care Team (Late st Contact Info) Description 11/20/2024 Results Follow-Up [facility] - Pulmonology & [facility] Medicine [facility] [address] [place] [phone] Khloe Herman APRN, PLACEMENT SECRETARY #2 [facility] [address] [place] [address] CMP (COMPREHENSIVE METABOLIC PANEL) Social History Tobacco Use Types Packs/Day Years Used Date Smoking Tobacco: Never Smokeless Tobacco: Never Alcohol Use Standard Drinks/Week Comments Never 0 (1 standard drink = 0.6 oz pur e alcohol) Sexually Active Control Partners Comments Never Comments Unknown Sex and Gender Information Value Date Recorded Sex Assigned at Not on file 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 Gender Identity Not on file Sexual Orientation Not on file documented as of this encounter Plan of Treatment Upcoming Encounters Date Type Department Care Team (Late st Contact Info) Description 12/25/2024 2:30 PM CDT Office Visit [facility] PULMON[facility]Y [facility] [address] [facility] [address] [place] [phone] Khloe Herman APRN, MIGUELITO [address] [address] documented as of this encounter Visit Diagnoses Not on filedocumented in this encounter Care Teams Marketing Underwriter Relationship Specialty Start Date End Date Marie Lawrence MD [address] [place] [address] PCP - General 01/03/23 Khloe Herman APRN, CNP #2 [facility] [address] [place] [address] Nurse Practitioner Advanced Practice Nurse 01/03/23 documented as of this encounter
--- OUTSIDE RECORDS SUMMARY | 2024-12-13 12:23 | XMS_ITS | Clinical Summary ---
Author Organization [email or web address] Address [address] [place] [address] Care Team Providers Care Cad Programmer Name Role Phone Marie Drake MD Primary Care Provider + Source Comments [email or web address],non-owned Affiliates and Associated Physician Practices is amultiple site organization consisting of ambulatory clinics and hospital sitesin [place], [place], [place] and [place]. This disclosure is being madepursuant to the Care Everywhere program and may not contain all information available regarding this patient. Last updated 18.[email or web address] Allergies Active Allergy Reactions Criticality Noted Date [...] complete this topic Insurance MEDICARE Care Teams Cad Programmer Relationship Specialty Start Date End Date Marie Drake MD [address] [place] [phone] PCP - General Family Medicine 01/05/24
--- OUTSIDE RECORDS SUMMARY | 2024-12-13 12:23 | XMS_ITS | Clinical Summary ---
Author Organization [facility] Address [address], [address] [address] Phone Care Team Providers Care Medical Record Assistant Name Role Phone Marie Lawrence MD Primary Care Provider [phone] Khloe Herman APRN, CHAIN MORTISER OPERATOR Unavailable Allergies Active Allergy Reactions Criticality Noted Date Comments Amoxicillin Other (see Comments) 12/06/2023 Aspirin Unknown 09/25/2024 Diphenhydramine Anaphylaxis High 01/11/2023 Codeine Unknown 09/25/2024 Penicillins Unknown 09/25/2024 Medications montelukast (SINGULAIR) 10 MG Tablet Take 10 mg by mouth every evening. Active hydroCHLOROthia zide 25 MG Tablet Take 25 mg by mouth daily. Active ergocalciferol (VITAMIN D) 82795 UNIT Capsule Take 50,000 Units by mouth. [...] Encounters Date Type Department Care Team Description 12/06/2024 [facility] [address] [place] [address] Khloe Herman APRN, CHAIN MORTISER OPERATOR 12/05/2024 [facility] [address] [place] [address] Khloe Herman APRN, CHAIN MORTISER OPERATOR 11/25/2024 Refill [facility] PULMONOLOGY [facility] [address] [place] [address] Khloe Herman APRN, MIGUELITO Medication Refill 11/20/2024 Results [facility] [address] [place] [address] Khloe Herman APRN, CHAIN MORTISER OPERATOR CMP (COMPREHENSIVE METABOLIC PANEL) 11/19/2024 [facility] [address] [place] [address] Khloe Herman APRN, CHAIN MORTISER OPERATOR 11/18/2024 [facility]phone [facility] [address] [place] [address] Khloe Herman APRN, MIGUELITO 11/15/2024 2:00 PM CDT Office [facility] [address] [place] [address] Khloe Herman APRN, MIGUELITO Bronchiectasis with acute exacerbation (HCC) (Primary Dx); Chronic respiratory failure with hypoxia (HCC); Eosinophilic asthma Discharge Disposition: Discharged to home or Selfcare 11/15/2024 Travel 10/18/[facility] [address] [place] [address] Khloe Herman APRN, CNP Medication Refill 10/07/2024 Telephone [facility] Pul[facility] Sleep Medicine [facility] [address] [place] [address] Khloe Herman APRN, CNP 09/25/2024 1:00 PM CDT Office Visit [facility] PULMONOLOGY [facility] [address] [place] [address] Khloe Herman APRN, CNP Eosinophilic asthma (Primary Dx); Bronchiectasis without acute exacerbation (HCC); Chronic respiratory failure with hypoxia (HCC) Discharge Disposition: Discharged to home or Selfcare 09/25/2024 Travel 09/23/2024 Refill [facility] PULMONOLOGY [facility] [address] [place] [address] Khloe Herman APRN, CNP Medication Refill from [...] on file 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 Gender Identity Not on file Sexual Orientation [...] Description 12/25/2024 2:30 PM CDT Office Visit [facility] - [place] [address] [facility] [address] [place] [address] Khloe Herman, RIB SAWYER, CHAIN MORTISER OPERATOR #2 [facility] [address] [place] [address] Health Maintenance Due Date Last Done Comments [...] Region Laterality Modality Chest N/A Other 10/01/2024 us Khloe Herman APRN, CNP IMG CT ORDERABLES Fin al Result from Last 3 Months Insurance MEDICARE [employer] GENERIC Care Teams Medical Record Assistant Relationship Specialty Start Date End Date Marie Lawrence MD [address] [place] [address] PCP - General 01/03/23 Khloe Herman APRN, CNP #[address] [address] Nurse Practitioner Advanced Practice Nurse 01/03/23
[2024-12-13 13:46] LABS: Hematocrit 33.8 % (37.0-47.0); Hemoglobin 10.4 g/dL (12.0-15.0); Immature Granulocyte Percent A 0.5 % (0-0.5); Lymphocytes Absolute Auto 2.13 K/mm3 (0.9-3.2); Mean Corpuscular HGB Conc 30.8 g/dl (32-36); Mean Corpuscular Hemoglobin 27.2 pg (26-34); Mean Corpuscular Volume 88.3 fl (80-100); Nucleated Red Blood Cells Absolute Auto 0.000 K/mm3 (0.0-0.012); Nucleated Red Blood Cells Perc 0.0 % (0.0-0.2); Platelet Count Result 268 k/mm3 (150-375); Red Blood Count 3.83 M/mm3 (4.2-5.4); White Blood Count 15.2 K/mm3 (4.5-10.0)
== END 2024-12-13 12:10 | disposition home or self-care (01) ==
PROVIDERS: PCP Family Medicine
DX: J18.1 Lobar pneumonia, unspecified organism (principal); J44.9 Chronic obstructive pulmonary disease, unspecified; K44.9 Diaphragmatic hernia without obstruction or gangrene
CPT/HCPCS: 36415; 71046; 85025

== ENCOUNTER 2024-12-31 08:16 | Outpatient (CLI) | payer MEDICARE, OTHER, SELFPAY ==
--- NOTE | ~2024-12-31 | CT_ITS ---
Clinical Indication: COPD exacerbation CT Scan of the Chest with Contrast: Technique: Contiguous sections were acquired throughout the chest after intravenous administration of 75 cc of Omnipaque 350. Dose reduction technique was used on this scan by utilizing automated exposu re control and iterative reconstruction technique. The dose-length product (DLP) was 137.29 mGy-cm. COMPARISON: 12/01/2024 Findings: There is no evidence of any significant mediastinal, hilar or axillary lymphadenopathy. There is no f illing defect in the pulmonary arterial tree to suggest pulmonary embolus. There is no evidence of ao rtic dissection or aneurysm. There is no evidence of pleural or pericardial effusion. Areas of biapical consolidation are unchanged, left worse than right. Innumerable subcentimeter pulmo nary nodules and multiple areas of cystic bronchiectasis, especially in the lower lobes, right middle lobe, and inferior upper lobes, are also similar to prior exam. Images through the upper abdomen reveal moderate to large hiatal hernia. Impression: Essentially stable extensive pulmonary abnormalities, as above, most compatible with acute on chronic small airways infectious process. Reviewed, dictated and finalized at [facility]. Impression: Essentially stable extensive pulmonary abnormalities, as above, most compatible with acute on chronic small airways infectious process.
--- OUTSIDE RECORDS SUMMARY | 2024-12-31 08:22 | XMS_ITS | Clinical Summary ---
Author Organization [facility] Address [address] [facility] [address] [place] [address] Phone Care Team Providers Care Full Time Paramedic Name Role Phone Marie Lawrence MD Primary Care Provider [phone] Khloe Herman APRN, CARPET YARN WINDER OPERATOR Unavailable Allergies Active Allergy Reactions Criticality Noted Date Comments Amoxicillin Other (see Comments) 12/06/2023 Aspirin Unknown 09/25/2024 Diphenhydramine Anaphylaxis High 01/11/2023 Codeine Unknown 09/25/2024 Penicillins Unknown 09/25/2024 Medications montelukast (SINGULAIR) 10 MG Tablet Take 10 mg by mouth every evening. Active hydroCHLOROthiaz cynthia 25 MG Tablet Take 25 mg by mouth daily. Active ergocalciferol (VITAMIN D) 69517 UNIT Capsule Take 50,000 Units by mouth. [...] as directed Active fluconazole (DIFLUCAN) 200 MG TabletIndication s:Oral thrush Take 1 Tablet by mouth daily. 1 Tablet 02/09/20 23 Active acetaminophen (TYLENOL) 325 MG Tablet Take 325 mg by mouth every 4 hours as needed. Active amiodarone (CORDARONE) 200 MG Tablet Take 200 mg by mouth daily. Active guaiFENesin (MUCINEX) 600 MG TABLET SR 12 HR Take 600 mg by mouth 2 times daily. Active hydrALAZINE 50 MG Tablet Take 50 mg by mouth 4 times daily. Active ipratropium-albu terol (DUO-NEB) 0.5-2.5 (3) MG/3ML SolutionIndicati ons:Severe persistent asthma with acute exacerbation 3 mL by Nebulization route 4 times daily. 360 mL 3 04/28/20 23 Active Albuterol-Budeso nide (Airsupra) 90-80 MCG/ACT Aerosol 2 puffs as needed, no more than 12 puffs in a 24 hour period. 3 g 3 05/27/20 24 Active Airsupra 90-80 MCG/ACT Aerosol INHALE 2 PUFFS NEEDED, NO MORE THAN 12 PUFFS IN A 24 HOUR PERIOD. 3 g 11 09/24/19 25 Active Dupilumab (DUPIXENT) 300 MG/2ML Solution Prefilled SyringeIndicatio ns:Severe persistent asthma with acute exacerbation 300mg every 2 weeks 4 mL 5 10/19/19 25 Active methylPREDNISolo ne (MEDROL DOSPACK) 4 MG Tablet Therapy Pack Take 4 mg by mouth daily. 11/10/19 25 Active levoFLOXacin (LEVAQUIN) 500 MG Tablet Take 500 mg by mouth 2 times daily. 11/10/19 25 Active theophylline (LEE-24) 400 MG CAPSULE SR 24 HRIndications:Eo sinophilic asthma Take 1 Capsule by mouth daily for 30 days. 90 Capsule 3 12/26/19 25 025 Active theophylline (LEE-24) 400 MG CAPSULE SR 24 HR Take 1 Capsule by mouth daily for 30 days. 30 Capsule 11/16/19 25 025 azithromycin (ZITHROMAX) 500 MG TabletIndication s:Bronchiectasis without acute exacerbation (HCC) TAKE 1 TABLET BY MOUTH THREE TIMES A WEEK FOR 28 DAYS. 12 Tablet 11 11/26/19 25 025 budesonide (PULMICORT) 0.5 MG/2ML SuspensionIndica tions:Bronchiect asis with acute exacerbation (HCC),Eosinophil ic asthma 2 mL by Nebulization route 2 times daily for 30 days. 120 mL 3 11/29/19 25 025 Revefenacin (Yupelri) 175 MCG/3ML SolutionIndicati ons:Bronchiectas is with acute exacerbation (HCC),Eosinophil ic asthma take 3 mL by inhalation daily for 30 days. 90 mL 3 11/29/19 25 025 Active Problems Problem Noted Date Diagnosed Date Eosinophilic asthma 03/27/2024 Chronic respiratory failure with hypoxia 024 Bronchiectasis with acute exacerbation Oral thrush 02/08/2023 Wheezing 01/03/2023 SOB (shortness of breath) 01/03/2023 Heart palpitations 01/03/2023 Resolved Problems Problem Noted Date Diagnosed Date Resolved Date Moderate persistent asthma w ith acute exacerbation 01/03/2023 02/08/2023 Severe persistent asthma wit h acute exacerbation 01/03/2023 03/27/2024 Encounters Date Type Department Care Team Description 12/26/[facility] - [place] [address] [place] [address] Khloe Herman APRN, CNP 12/25/2024 2:30 PM CDT Office Visit [facility] - [place] [address] [facility] [facility] [address] [place] [address] Khloe Herman APRN, MIGUELITO Eosinophilic asthma (Primary Dx); Chronic respiratory failure with hypoxia (HCC); Bronchiectasis with acute exacerbation (HCC) Discharge Disposition: Discharged to home or Selfcare 12/25/2024 Travel 12/06/2024 Telephone [facility] - [place] [address] [place] [address] Khloe Herman APRN, CNP 12/05/2024 Telephone [facility] Pulmonology & Sleep Medicine - [place] [address] [place] [address] Khloe Herman APRN, CNP 11/25/2024 Refill [facility] [address] [facility] [place] [address] Khloe Herman APRN, CNP Medication Refill 11/20/2024 Results Follow-Up [facility] Pul[facility]ology & Sleep Medicine [facility] [address] [place] [address] Khloe Herman APRN, CNP CMP (COMPREHENSIVE METABOLIC PANEL) 11/19/2024 Telephone [facility] Pulmonology & Sleep Medicine - [place] [address] [place] [address] Khloe Herman APRN, CNP 11/18/2024 Telephone [facility] Pulmonology & Sleep Medicine [facility] [address] [place] [address] Khloe Herman APRN, CNP 11/15/2024 2:00 PM CDT [facility] [address] [place] [address] Khloe Herman APRN, MIGUELITO Bronchiectasis with acute exacerbation (HCC) (Primary Dx); Chronic respiratory failure with hypoxia (HCC); Eosinophilic asthma Discharge Disposition: Discharged to home or Selfcare 11/15/2024 Travel 10/18/2024 Refill [facility] Pulmonology & Sleep Medicine - [place] [address] [place] [address] Khloe Herman APRN, CNP Medication Refill 10/07/2024 Telephone [facility] Pulmonology & Sleep Medicine - [place] [address] [place] [address] Khloe Herman APRN, CNP from Last 3 Months Social History Tobacco [...] on file 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 Gender Identity Not on file Sexual Orientation Not on file Last Filed Vital Signs Vital Sign Reading Time Taken Comments Blood Pressure 106/58 12/25/2024 2:25 PM CDT Pulse 102 12/25/2024 2:25 PM CDT Temperature 36.7 C (98.1 F) 12/25/2024 2:25 PM CDT Respiratory Rate 18 12/25/2024 2:25 PM CDT Oxygen Saturation 90% 12/25/2024 2:25 PM CDT Inhaled Oxygen Concentration - - Weight 61.7 kg (136 lb) 12/25/2024 2:25 PM CDT Height 157.5 cm (5' 2) 12/25/2024 2:25 PM CDT Body Mass Index 24.87 12/25/2024 2:25 PM CDT Plan of Treatment Upcoming Encounters Date Type Department Care Team (Late st Contact Info) Description 02/05/2025 10:30 AM CDT Office Visit [facility] - [place] [address] [facility] [address] [place] [address] Khloe Herman, TRACK WATCHMAN, CARPET YARN WINDER OPERATOR #2 [facility] [address] [place] [address] Health Maintenance Due Date Last Done Comments DEXA Bone Density 1950 Hepatitis C Virus (HCV) Screening 1950 TdaP Immunization 1950 Zoster Immunization (1 of 2) 01/24/1998 Pneumococcal Immunization (50+ years) (2 of 2 - PCV) 03/08/2019 03/08/2018 SARS-COV-2 Immunization ( season) 2024 04/29/2021, 07/22/2020, 07/01/2020 Influenza Immunization (#1) 2025 01/28, 03/05/2020, 04/02/2019, Additional history exists Respiratory Syncytial [...] METABOLIC PANEL) (11/15/2024 12:00 AM CDT) Blood Khloe Herman APRN, CNP CHEMISTRY ORDERABLES Final Result SCAN * CT HIGH RESOLUTION CHEST COMPLETE (10/01/2024 12:00 AM CDT) Anatomical Region Laterality Modality Chest N/A Other 10/01/2024 Khloe Herman APRN, CNP IMG CT ORDERABLES Fin al Result from Last 3 Months Insurance MEDICARE COMMERCIAL GENERIC Care Teams Full Time Paramedic Relationship Specialty Start Date End Date Marie Lawrence MD [address] [place] [id number] PCP - General 01/03/23 Khloe Herman APRN, CARPET YARN WINDER OPERATOR #[address] [address] Nurse Practitioner Advanced Practice Nurse 01/03/23
--- OUTSIDE RECORDS SUMMARY | 2024-12-31 08:22 | XMS_ITS | Encounter Summary ---
Author Organization [facility] Address [address] [place] [address] Phone Care Team Providers Care Pulp Drier Firer Name Role Phone Marie Lawrence MD Primary Care Provider [phone] Khloe Herman APRN, BARREL COATER Unavailable Encounter Details Date Type Department Care Team (Late st Contact Info) Description 11/20/2024 Results Follow-Up 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 Gender Identity Not on file Sexual Orientation Not on file documented as of this encounter Plan of Treatment Upcoming Encounters Date Type Department Care Team (Late st Contact Info) Description 02/05/2025 10:30 AM CDT Office Visit [facility] PULMON[facility] [address] [facility] [address] [place] [address] Khloe Herman APRN, MIGUELITO [address] [address] documented as of this encounter Visit Diagnoses Not on filedocumented in this encounter Care Teams Pulp Drier Firer Relationship Specialty Start Date End Date Marie Lawrence MD [address] [place] [address] PCP - General 01/03/23 Khloe Herman APRN, CNP #2 [facility] [address] [place] [address] Nurse Practitioner Advanced Practice Nurse 01/03/23 documented as of this encounter
--- OUTSIDE RECORDS SUMMARY | 2024-12-31 08:23 | XMS_ITS | Clinical Summary ---
Author Organization Unknown Care Team Providers Care Loading And Unloading Supervisor Name Role Phone KIRIT COLD ROLL OPERATOR, ERIC Unavailable Unavailable [employer] PHYSICAL THERAPIST, TANNER Unavailable Unavailable ANDREE GRINDER CHIPPER, FRANK Castro ailable Unavailable Payers Payer Name Policy Type Policy Number Effective Date Expira tion Date MEDICARE [place] - EPISODIC [id number] Problems Condition Name Condition Details Condition Category Status Onset Date Resolution Date Last Treatment Date Treating Clinician Comments CHRONIC OBSTRUCTIVE PULMONARY DISEASE W (ACUTE) EXACERBATION Active 12-12 00:00: 00 BRONCHIECTAS IS, UNCOMPLICATE D Active 05-29 00:00: 00 GASTRO-ESOPH AGEAL REFLUX DISEASE WITHOUT ESOPHAGITIS Active 05-29 00:00: 00 DIAPHRAGMATI 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 Active 05-29 00:00: 00 DEPRESSION, UNSPECIFIED Active 05-29 00:00: 00 HYPERLIPIDEM IA, UNSPECIFIED Active 05-29 00:00: 00 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 ELETS Active 05-29 00:00: 00 ACQUIRED ABSENCE OF OTHER SPECIFIED PARTS OF DIGESTIVE TRACT Active 05-29 00:00: 00 ACQUIRED ABSENCE OF BOTH CERVIX AND UTERUS Active 05-29 00:00: 00 PERSONAL HISTORY OF PNEUMONIA (RECURRENT) Active 05-29 00:00: 00 Allergies, Adverse Reactions, Alerts Allergy Name Allergy Type Status Severity Reaction(s) Onset Date Inactive Date Treating Clinician Comments BENADRYL Propensity to adverse reactions Active 12-14 09:33: 56 INDERAL LA Propensity to adverse reactions Active 12-14 09:34: 03 LEVAQUIN Propensity to adverse reactions Active 12-14 09:34: 08 MINOCIN Propensity to adverse reactions Active 12-14 09:34: 22 MUCINEX Propensity to adverse reactions Active 12-14 09:34: 29 ASPIRIN Propensity to adverse reactions Active 12-14 09:34: 36 CLARITHROMYC IN Propensity to adverse reactions Active 12-14 09:34: 42 CLINDAMYCIN Propensity to adverse reactions Active 12-14 09:34: 49 CODEINE Propensity to adverse reactions Active 12-14 09:34: 56 PENICILLINS Propensity to adverse reactions Active 12-14 09:35: 04 TETANUS Propensity to adverse reactions Active 12-14 09:35: 11 Medications Ordered Medication Name Filled Medication Name Start Date Stop Date Current Medication? Ordering Clinician Indication Dosage Frequency Signature (SIG) Comments Components Airsupra 90 mcg-80 mcg/actuati on HFA aerosol inhaler 12-08 00:00: 00 Yes [id number] BREATHING 2 puff ONCE DAILY 2 puff ONCE DAILY (route: inhalation ) Med Classific ation: Respirato ry Therapy Agents clopidogrel 75 mg tablet 12-08 00:00: 00 Yes [id number] BLOOD CLOT PREVENTION 1 tablet ONCE DAILY 1 tablet ONCE DAILY (route: oral) Med Classific ation: Hematolog ical Agents digoxin 125 mcg (0.125 mg) tablet 12-08 00:00: 00 Yes [id number] HEART 1 tablet ONCE DAILY 1 tablet ONCE DAILY (route: oral) Med Classific ation: Cardiovas cular Therapy Agents ergocalcife rol (vitamin D2) 1,250 mcg (50,000 unit) capsule 12-08 00:00: 00 Yes [id number] SUPPLEMENT 1 capsule WEEKLY 1 capsule WEEKLY (route: oral) Med Classific ation: Electroly te Balance-N utritiona l Products guaifenesin ER 600 mg tablet, extended release 12 hr 12-08 00:00: 00 Yes [id number] COUGH 1 tablet TWICE DAILY 1 tablet TWICE DAILY (route: oral) Med Classific ation: Respirato ry Therapy Agents hydralazine 50 mg tablet 12-08 00:00: 00 Yes [id number] HTN 1 tablet ONCE DAILY 1 tablet ONCE DAILY (route: oral) Med Classific ation: Cardiovas cular Therapy Agents hydrochloro thiazide 25 mg tablet 12-08 00:00: 00 Yes [id number] HTN 1 tablet ONCE DAILY 1 tablet ONCE DAILY (route: oral) Med Classific ation: Cardiovas cular Therapy Agents ipratropium 0.5 mg-albutero l 3 mg (2.5 mg base)/3 mL nebulizatio n soln 12-08 00:00: 00 Yes [id number] BREATHING 3 mL EVERY 6 HOURS 3 mL EVERY 6 HOURS (route: inhalation ) Med Classific ation: Respirato ry Therapy Agents isosorbide mononitrate ER 30 mg tablet,exte nded release 24 hr 12-08 00:00: 00 Yes [id number] HTN 1 tablet ONCE DAILY 1 tablet ONCE DAILY (route: oral) Med Classific ation: Cardiovas cular Therapy Agents montelukast 10 mg tablet 12-08 00:00: 00 Yes [id number] ALLERGIES 1 tablet ONCE DAILY 1 tablet ONCE DAILY (route: oral) Med Classific ation: Respirato ry Therapy Agents omeprazole 40 mg capsule,del ayed release 12-08 00:00: 00 Yes [id number] GERD 1 capsule ONCE DAILY 1 capsule ONCE DAILY (route: oral) Med Classific ation: Gastroint estinal Therapy Agents rosuvastati n 40 mg tablet 12-08 00:00: 00 Yes [id number] CHOLESTEROL 1 tablet ONCE DAILY 1 tablet ONCE DAILY (route: oral) Med Classific ation: Cardiovas cular Therapy Agents theophyllin e ER 400 mg tablet,exte nded release 24 hr 12-08 00:00: 00 Yes [id number] LUNGS 1 tablet ONCE DAILY 1 tablet ONCE DAILY (route: oral) Med Classific ation: Respirato ry Therapy Agents Immunizations Ordered Immunization Name Filled Immunization Name Date Status Comments Refusal Reason PNEUMOCOCCAL (PPV), PPV 2022-11-30 00:00:00 Vital Signs Vital Name Observation Time Observation Value Commen ts Temperature 2024-12-24 11:54:00.000 97.9 [degF] Temperature 2024-12-17 10:00:00.000 97.1 [degF] BMI (%) 2024-12-17 09:41:36.000 23 kg/m2 Height 2024-12-17 09:41:30.000 62 [in_us] Pulse 2024-12-24 11:54:00.000 76 /min Pulse 2024-12-17 10:00:00.000 80 /min O2 Saturation (%) 2024-12-24 11:54:00.000 97 % O2 Saturation (%) 2024-12-17 10:00:00.000 95 % Respirations 2024-12-24 11:54:00.000 20 /min Respirations 2024-12-17 10:00:00.000 20 /min Weight (lbs) 2024-12-17 09:41:36.000 130 [lb_av] Systolic Blood Pressure 2024-12-24 11:54:00.000 116 mm [Hg] Systolic Blood Pressure 2024-12-17 10:00:00.000 128 mm [Hg] Diastolic Blood Pressure 2024-12-24 11:54:00.000 68 mm [Hg] Diastolic Blood Pressure 2024-12-17 10:00:00.000 54 mm [Hg] Plan of Treatment Planned Activity Planned Date Details Comments Future Scheduled Test FOR EACH O RDERED, IN-HOME OR TELEHEALTH VISIT, THE PHYSICAL THERAPIST WILL EVALUATE AND TREAT PATIENTS FUNCTIONAL DEFICITS. PHYSICAL THERAPIST WILL ASSESS AND INSTRUCT ON PAIN, FALL PREVENTION AND SAFETY, MENTAL/COGNITIVE/PSYCHOSOCIAL STATUS, MED MANAGEMENT, SKIN INTEGRITY, PRESSURE ULCER PREVENTION, AND INFECTION CONTROL/PREVENTION RELATED TO THE PRIMARY MEDICAL DIAGNOSIS AND ACTIVE CO-MORBIDITIES THAT MAY IMPACT THE PATIENTS OUTCOME. [code = FOR EACH ORDERED, IN-HOME OR TELEHEALTH VISIT, THE PHYSICAL THERAPIST WILL EVALUATE AND TREAT PATIENTS FUNCTIONAL DEFICITS. PHYSICAL THERAPIST WILL ASSESS AND INSTRUCT ON PAIN, FALL PREVENTION AND SAFETY, MENTAL/COGNITIVE/PSYCHOSOCIAL STATUS, MED MANAGEMENT, SKIN INTEGRITY, PRESSURE ULCER PREVENTION, AND INFECTION CONTROL/PREVENTION RELATED TO THE PRIMARY MEDICAL DIAGNOSIS AND ACTIVE CO-MORBIDITIES THAT MAY IMPACT THE PATIENTS OUTCOME.] Future Scheduled Test PATIENT RE QUIRED A DELAY IN THE HOME HEALTH START OF CARE/RESUMPTION OF CARE. THE DELAY(S) REQUIRED A NOTIFICATION AND APPROVAL BY THE PHYSICIAN OR ALLOWABLE PRACTITIONER WHICH WAS DONE ON 12/14/2024, 12/17/24 THE NEW PHYSICIAN ORDERED START OF CARE/RESUMPTION OF CARE DATE(S) 12/18/2024, 12/17/24 PATIENTS REASON(S) TO DELAY HOME HEALTH INCLUDED PATIENT REQUESTED, PATIENT REQUESTS PT SOC TO BE COMPLETED ON 12/17/24 [code = PATIENT REQUIRED A DELAY IN THE HOME HEALTH START OF CARE/RESUMPTION OF CARE. THE DELAY(S) REQUIRED A NOTIFICATION AND APPROVAL BY THE PHYSICIAN OR ALLOWABLE PRACTITIONER WHICH WAS DONE ON 12/14/2024, 12/17/24 THE NEW PHYSICIAN ORDERED START OF CARE/RESUMPTION OF CARE DATE(S) 12/18/2024, 12/17/24 PATIENTS REASON(S) TO DELAY HOME HEALTH INCLUDED PATIENT REQUESTED, PATIENT REQUESTS PT SOC TO BE COMPLETED ON 12/17/24 ] Future Scheduled Test PHYSICAL T HERAPIST TO DEVELOP AND INSTRUCT ON HOME EXERCISE PROGRAM TO INCLUDE THERAPEUTIC EXERCISES DESIGNED TO RESTORE FUNCTIONAL RANGE OF MOTION, STRENGTH, BALANCE, NEUROMUSCULAR AND SENSORIMOTOR FUNCTION. [code = PHYSICAL THERAPIST TO DEVELOP AND INSTRUCT ON HOME EXERCISE PROGRAM TO INCLUDE THERAPEUTIC EXERCISES DESIGNED TO RESTORE FUNCTIONAL RANGE OF MOTION, STRENGTH, BALANCE, NEUROMUSCULAR AND SENSORIMOTOR FUNCTION.] Future Scheduled Test PHYSICAL T HERAPIST WILL INSTRUCT ON FUNCTIONAL TRANSFERS, BED MOBILITY AND FALL RISK REDUCTION STRATEGIES INCLUDING USE OF ADAPTIVE EQUIPMENT AND EDUCATION FOR HOME MODIFICATIONS TO MAXIMIZE SAFETY, IMPROVE FUNCTION AND DECREASE FALL RISK. [code = PHYSICAL THERAPIST WILL INSTRUCT ON FUNCTIONAL TRANSFERS, BED MOBILITY AND FALL RISK REDUCTION STRATEGIES INCLUDING USE OF ADAPTIVE EQUIPMENT AND EDUCATION FOR HOME MODIFICATIONS TO MAXIMIZE SAFETY, IMPROVE FUNCTION AND DECREASE FALL RISK.] Future Scheduled Test PHYSICAL T HERAPIST TO INSTRUCT ON GAIT TRAINING, BALANCE TRAINING, AND FALL RISK REDUCTION STRATEGIES INCLUDING USE OF ADAPTIVE EQUIPMENT AND EDUCATION FOR HOME MODIFICATIONS TO MAXIMIZE SAFETY, IMPROVE FUNCTION, AND DECREASED FALL RISK. [code = PHYSICAL THERAPIST TO INSTRUCT ON GAIT TRAINING, BALANCE TRAINING, AND FALL RISK REDUCTION STRATEGIES INCLUDING USE OF ADAPTIVE EQUIPMENT AND EDUCATION FOR HOME MODIFICATIONS TO MAXIMIZE SAFETY, IMPROVE FUNCTION, AND DECREASED FALL RISK.] Future Scheduled Test PHYSICAL T HERAPIST WILL ASSESS FOR COMPLICATIONS RELATED TO ANTIPLATELET USE AND INSTRUCT PATIENT/CAREGIVER ABOUT PRECAUTIONS TO FOLLOW AND SIGNS/SYMPTOMS TO REPORT. [code = PHYSICAL THERAPIST WILL ASSESS FOR COMPLICATIONS RELATED TO ANTIPLATELET USE AND INSTRUCT PATIENT/CAREGIVER ABOUT PRECAUTIONS TO FOLLOW AND SIGNS/SYMPTOMS TO REPORT.] Goal Patient Goal - P ATIENT WANTS TO GET STRONGER, WALK BETTER AND IMPROVE HER ACTIVITY TOLERANCE Goal Provider Goal - PHYSICAL THERAPY EVALUATION WILL BE COMPLETED, AND A PLAN OF CARE WILL BE DEVELOPED FOR THE TREATMENT OF PATIENT DEFICITS RELATED TO PRIMARY DIAGNOSIS FOR HOME CARE EPISODE. PATIENT/CAREGIVER TO VERBALIZE AND DEMONSTRATE UNDERSTANDING OF ASSOCIATED DISEASE PROCESSES AND THEIR INFLUENCE ON FUNCTION IN THE HOME ENVIRONMENT AND MINIMIZE RISK OF HOSPITALIZATION. Goal Provider Goal - PATIENT WILL RECEIVE HOME HEALTH SERVICES ON ORDERED START DATE. Goal Provider Goal - PATIENT/CAREGIVER WILL RETURN DEMONSTRATE ACCURATE AND SAFE EXECUTION OF ESTABLISHED HOME EXERCISE PROGRAM TO IMPROVE ABILITY TO AMBULATE. Goal Provider Goal - PATIENT WILL DEMONSTRATE IMPROVED SAFETY AND ABILITY WITH TRANSFERS AND BED MOBILITY. Goal Provider Goal - PATIENT WILL DEMONSTRATE IMPROVED SAFETY AND ABILITY WITH GAIT, BALANCE, AND REDUCED FALL RISK. Goal Provider Goal - PATIENT/CAREGIVER WILL DEMONSTRATE WILLINGNESS TO COLLABORATE AND CREATE A COPD ACTION PLAN, VERBALIZE UNDERSTANDING OF STRATEGIES TO PREVENT EXACERBATIONS, AND VERBALIZE WARNING SIGNS AND WHEN TO CONTACT THE TREATING PROVIDER OR 911 UPON THE END OF HOME HEALTH SERVICES. Encounters Start Date/Time End Date/Time Encounter Type Admission Type Attending [facility] Care Department Encounter ID Discharge Date Discharge Status Discharge Condition Discharge Reason Percent Goals Met 2024-12-17 00:00:00 2025-02-14 00:00:00 Outpatient NEW ADMISSION [facility] [id number] 50.00
--- OUTSIDE RECORDS SUMMARY | 2024-12-31 08:23 | XMS_ITS | Clinical Summary ---
Author Organization [facility] Address [address] [place] [address] Care Team Providers Care Director Of Rehabilitative Services Name Role Phone Marie Drake MD Primary Care Provider + Source Comments [facility] [employer],non-owned Affiliates and Associated Physician Practices is amultiple site organization consisting of ambulatory clinics and hospital sitesin [place], [place], [place] and [place]. This disclosure is being madepursuant to the Care Everywhere program and may not contain all information available regarding this patient. Last updated 18.[facility] [employer] Allergies Active Allergy Reactions Criticality Noted Date [...] complete this topic Insurance MEDICARE Care Teams Director Of Rehabilitative Services Relationship Specialty Start Date End Date Marie Drake MD [address] [place] [phone] PCP - General Family Medicine 01/05/24
== END 2024-12-31 08:17 | disposition home or self-care (01) ==
PROVIDERS: PCP Family Medicine
DX: R91.8 Other nonspecific abnormal finding of lung field (principal); J44.1 Chronic obstructive pulmonary disease with (acute) exacerbation
CPT/HCPCS: 71260; Q9967